=== PATIENT | male | born 1945 | race Caucasian/White ===

== ENCOUNTER 2020-10-25 15:47 | Inpatient (IN) ==
[2020-10-25] MEDS ORDERED: NITROGLYCERIN SL 0.4 MG/TAB TAB SL STA (16:06)
--- NOTE | 2020-10-25 16:11 | Emergency Department Note ---
History of Present Illness General Chief complaint: Cardiac Assessment Stated complaint: HEART PROBLEM Time Seen by Provider: 10/25/20 15:58 Source: patient History of Present Illness Provider complaint: Chest pain Onset (ago): hour(s) 2 Location: chest Radiation: non-radiation Pain Consistency: + constant Maximum Pain Intensity: 8 Quality: + other (Heaviness) Relieved By: + none Associated symptoms: + shortness of breath; no cough, no fever/chills, no malaise and no nausea/vomiting This is a 74-year-old male with a history of cardiac stent x2 presenting with chest discomfort starting 2 hours prior to arrival. He describes it as a heaviness in the center of his chest without radiation. He rates an 8 out of 10 in severity. No alleviating factors. He states it is associated with some shortness of breath. He denies diaphoresis, fever, cough or cold symptoms, abdominal pain, vomiting, diarrhea, loss of taste or smell, known exposure to COVID-19. He states he had 2 cardiac stents in [place] in April of last year. He states his symptoms feel similar to that episode. He denies any leg swelling or pain. He denies any recent travel or immobilization. Home Medications Medication Instructions Recorded Confirmed Type amlodipine 5 mg PO DAILY 10/25/20 10/25/20 History lisinopril 10 mg PO DAILY 10/25/20 10/25/20 History metoprolol tartrate 25 mg PO BID 10/25/20 10/25/20 History rosuvastatin 10 mg PO DAILY 10/25/20 10/25/20 History Allergies Allergy/AdvReac Type Severity Reaction Status Date / Time No Known Allergies Allergy Unverified 10/25/20 17:51 Past Med/Surg History Medical History CAD (coronary artery disease) Surgical History H/O heart artery stent Social History Smoking Status: Never smoker Hx Alcohol Use: Yes Alcohol type: wine Hx Substance Use: No Preferred Language: Uzbek Communication Ability: Effective Fish Bailer Required: No Beliefs That Will Affect Care: None Current Living Situation: Spouse Other Information That Helps Us Care for You: No Feels Safe at Home: Yes Safety Concerns: Feels Safe At This Time Assistive Devices: None Review of Systems See HPI for pertinent positives & negatives. and A total of 10 systems reviewed and were otherwise negative Physical Exam Vital Signs Vital Signs - 24 hr 10/25/20 15:55 10/25/20 16:05 10/25/20 16:17 Temperature 36.4 C L Temperature Source Oral Pulse Rate 91 H 90 88 Pulse Rate [Apical] Pulse Rate from SpO2 Sensor 89 87 Respiratory Rate 20 26 H 21 Respiratory Effort / Characteristics Spontaneous Respiratory Depth Normal Blood Pressure 144/83 H Blood Pressure [Right Arm] Blood Pressure Mean 108 Blood Pressure Mean [Right Arm] Pulse Oximetry 92 98 96 Oxygen Delivery Method Room Air Sepsis Recent Fever Within 48 Hours No Sepsis New/Unexplained Change in Mental Status N/A Sepsis Action Taken by Nursing No Action Required 10/25/20 16:20 10/25/20 16:21 10/25/20 16:25 Temperature Temperature Source Pulse Rate 91 H 93 H 90 Pulse Rate [Apical] 89 Pulse Rate from SpO2 Sensor 90 91 H 89 Respiratory Rate 14 28 H 16 Respiratory Effort / Characteristics Respiratory Depth Blood Pressure 129/74 106/62 Blood Pressure [Right Arm] 129/74 Blood Pressure Mean 108 74 Blood Pressure Mean [Right Arm] 92 Pulse Oximetry 96 97 96 Oxygen Delivery Method Room Air Room Air Sepsis Recent Fever Within 48 Hours Sepsis New/Unexplained Change in Mental Status Sepsis Action Taken by Nursing 10/25/20 16:30 10/25/20 16:31 10/25/20 16:32 Temperature Temperature Source Pulse Rate 82 87 86 Pulse Rate [Apical] 88 Pulse Rate from SpO2 Sensor 82 85 85 Respiratory Rate 14 15 14 Respiratory Effort / Characteristics Respiratory Depth Blood Pressure 96/58 L 88/55 L 95/55 L Blood Pressure [Right Arm] 88/55 L Blood Pressure Mean 67 61 70 Blood Pressure Mean [Right Arm] 66 Pulse Oximetry 94 94 94 Oxygen Delivery Method Room Air Sepsis Recent Fever Within 48 Hours Sepsis New/Unexplained Change in Mental Status Sepsis Action Taken by Nursing 10/25/20 16:33 10/25/20 16:35 10/25/20 16:40 Temperature Temperature Source Pulse Rate 86 93 H Pulse Rate [Apical] 86 Pulse Rate from SpO2 Sensor 86 93 H Respiratory Rate 18 16 15 Respiratory Effort / Characteristics Respiratory Depth Blood Pressure 105/60 119/65 Blood Pressure [Right Arm] 95/55 L Blood Pressure Mean 68 75 Blood Pressure Mean [Right Arm] 68 Pulse Oximetry 94 95 95 Oxygen Delivery Method Sepsis Recent Fever Within 48 Hours Sepsis New/Unexplained Change in Mental Status Sepsis Action Taken by Nursing 10/25/20 16:41 10/25/20 16:45 10/25/20 16:50 Temperature Temperature Source Pulse Rate 93 H 96 H 96 H Pulse Rate [Apical] Pulse Rate from SpO2 Sensor 94 H 97 H 95 H Respiratory Rate 14 22 17 Respiratory Effort / Characteristics Respiratory Depth Blood Pressure 118/67 127/68 Blood Pressure [Right Arm] Blood Pressure Mean 74 74 Blood Pressure Mean [Right Arm] Pulse Oximetry 95 94 94 Oxygen Delivery Method Sepsis Recent Fever Within 48 Hours Sepsis New/Unexplained Change in Mental Status Sepsis Action Taken by Nursing 10/25/20 16:51 10/25/20 16:55 10/25/20 16:56 Temperature Temperature Source Pulse Rate 96 H 94 H 96 H Pulse Rate [Apical] Pulse Rate from SpO2 Sensor 96 H 95 H 96 H Respiratory Rate 24 20 22 Respiratory Effort / Characteristics Respiratory Depth Blood Pressure 113/65 Blood Pressure [Right Arm] Blood Pressure Mean 75 Blood Pressure Mean [Right Arm] Pulse Oximetry 94 94 94 Oxygen Delivery Method Sepsis Recent Fever Within 48 Hours Sepsis New/Unexplained Change in Mental Status Sepsis Action Taken by Nursing 10/25/20 17:00 10/25/20 17:01 10/25/20 17:05 Temperature Temperature Source Pulse Rate 95 H 96 H 95 H Pulse Rate [Apical] Pulse Rate from SpO2 Sensor 96 H 89 92 H Respiratory Rate 22 26 H 14 Respiratory Effort / Characteristics Respiratory Depth Blood Pressure 122/66 126/67 Blood Pressure [Right Arm] Blood Pressure Mean 88 77 Blood Pressure Mean [Right Arm] Pulse Oximetry 95 95 92 Oxygen Delivery Method Sepsis Recent Fever Within 48 Hours Sepsis New/Unexplained Change in Mental Status Sepsis Action Taken by Nursing 10/25/20 17:10 10/25/20 17:11 10/25/20 17:15 Temperature Temperature Source Pulse Rate 97 H 96 H 99 H Pulse Rate [Apical] Pulse Rate from SpO2 Sensor 89 95 H 92 H Respiratory Rate 16 17 17 Respiratory Effort / Characteristics Respiratory Depth Blood Pressure 124/65 120/76 Blood Pressure [Right Arm] Blood Pressure Mean 74 93 Blood Pressure Mean [Right Arm] Pulse Oximetry 94 93 92 Oxygen Delivery Method Sepsis Recent Fever Within 48 Hours Sepsis New/Unexplained Change in Mental Status Sepsis Action Taken by Nursing 10/25/20 17:16 10/25/20 17:20 10/25/20 17:21 Temperature Temperature Source Pulse Rate 98 H 98 H 101 H Pulse Rate [Apical] Pulse Rate from SpO2 Sensor 97 H 96 H 90 Respiratory Rate 22 18 19 Respiratory Effort / Characteristics Respiratory Depth Blood Pressure 130/70 Blood Pressure [Right Arm] Blood Pressure Mean 77 Blood Pressure Mean [Right Arm] Pulse Oximetry 93 94 93 Oxygen Delivery Method Sepsis Recent Fever Within 48 Hours Sepsis New/Unexplained Change in Mental Status Sepsis Action Taken by Nursing 10/25/20 17:25 10/25/20 17:30 10/25/20 17:35 Temperature Temperature Source Pulse Rate 102 H 101 H 99 H Pulse Rate [Apical] Pulse Rate from SpO2 Sensor 100 H 98 H 103 H Respiratory Rate 17 21 19 Respiratory Effort / Characteristics Respiratory Depth Blood Pressure 133/78 135/77 Blood Pressure [Right Arm] Blood Pressure Mean 90 92 Blood Pressure Mean [Right Arm] Pulse Oximetry 93 94 92 Oxygen Delivery Method Sepsis Recent Fever Within 48 Hours Sepsis New/Unexplained Change in Mental Status Sepsis Action Taken by Nursing 10/25/20 17:40 10/25/20 17:41 10/25/20 17:45 Temperature Temperature Source Pulse Rate 99 H 100 H 101 H Pulse Rate [Apical] Pulse Rate from SpO2 Sensor 98 H 100 H 100 H Respiratory Rate 20 20 20 Respiratory Effort / Characteristics Respiratory Depth Blood Pressure 128/84 127/74 Blood Pressure [Right Arm] Blood Pressure Mean 95 91 Blood Pressure Mean [Right Arm] Pulse Oximetry 92 93 92 Oxygen Delivery Method Sepsis Recent Fever Within 48 Hours Sepsis New/Unexplained Change in Mental Status Sepsis Action Taken by Nursing 10/25/20 17:50 10/25/20 17:51 10/25/20 17:56 Temperature Temperature Source Pulse Rate 99 H 100 H 102 H Pulse Rate [Apical] Pulse Rate from SpO2 Sensor 100 H 100 H 103 H Respiratory Rate 29 H 23 28 H Respiratory Effort / Characteristics Respiratory Depth Blood Pressure 126/83 120/89 Blood Pressure [Right Arm] Blood Pressure Mean 97 91 Blood Pressure Mean [Right Arm] Pulse Oximetry 94 93 94 Oxygen Delivery Method Sepsis Recent Fever Within 48 Hours Sepsis New/Unexplained Change in Mental Status Sepsis Action Taken by Nursing 10/25/20 18:00 10/25/20 18:05 Temperature Temperature Source Pulse Rate 102 H 102 H Pulse Rate [Apical] Pulse Rate from SpO2 Sensor 102 H Respiratory Rate 20 22 Respiratory Effort / Characteristics Respiratory Depth Blood Pressure 126/79 134/72 Blood Pressure [Right Arm] Blood Pressure Mean 90 84 Blood Pressure Mean [Right Arm] Pulse Oximetry 94 93 Oxygen Delivery Method Sepsis Recent Fever Within 48 Hours Sepsis New/Unexplained Change in Mental Status Sepsis Action Taken by Nursing Constitutional: Vital signs reviewed. Eyes: Pupils are equal round reactive to light. Conjunctiva are noninjected. ENT: Pharynx is clear without erythema or exudate. Mucous membranes are moist. Neck supple without meningeal signs. Respiratory: Clear to auscultation bilaterally. Breath sounds are equal bilaterally. Cardiovascular: Regular rate and rhythm. No rubs or gallops. GI: Soft, nondistended and nontender. Bowel sounds are present. Musculoskeletal: No peripheral edema. No lower extremity tenderness. Integumentary: No cyanosis. or jaundice. Neurological: The patient is awake and alert. No focal deficits. Psychiatric: Anxious. Course Administered Medications Metoprolol Tartrate (Metoprolol Tartrate 25 Mg Tab) 25 mg PO BID AZUCENA Stop: 11/24/20 20:59 Last Admin: 10/25/20 22:28 Dose: 25 mg Documented by: [id number] Rosuvastatin Calcium (Rosuvastatin Calcium 10 Mg Tab) 10 mg PO HS AZUCENA Stop: 11/24/20 20:59 Last Admin: 10/25/20 22:29 Dose: 10 mg Documented by: [id number] Sucralfate (Sucralfate 1 Gm/10 Ml Udc) 1 gm PO ACHS AZUCENA Stop: 11/24/20 20:59 Last Admin: 10/25/20 22:28 Dose: 1 gm Documented by: [id number] Discontinued Medications Aspirin (Aspirin 81 Mg Ectab) 81 mg PO NOW STA Stop: 10/25/20 17:54 Last Admin: 10/25/20 18:43 Dose: 81 mg Documented by: [id number] Fentanyl Citrate (Fentanyl Citrate 100 Mcg/2 Ml Vial) 50 mcg IV NOW STA Stop: 10/25/20 16:34 Last Admin: 10/25/20 16:59 Dose: 50 mcg Documented by: [id number] Fentanyl Citrate (Fentanyl Citrate 100 Mcg/2 Ml Vial) 50 mcg IV NOW STA Stop: 10/25/20 17:35 Last Admin: 10/25/20 18:42 Dose: Not Given Documented by: [id number] Heparin Sodium/Dextrose (Heparin Iv Low Dose *No* Bolus) 1 ea IV Q30M [facility]; Protocol Stop: 11/24/20 17:55 Last Admin: 10/25/20 18:39 Dose: 1 ea Documented by: [id number] Heparin Sodium/Dextrose (Heparin 75409 Unit/500 Ml D5w) Confirm Administered Dose 25,000 units IV .STK-MED ONE Stop: 10/25/20 18:20 Last Admin: 10/25/20 18:38 Dose: 18 ml Documented by: [id number] Cosigned by: [id number] Sodium Chloride (Nss) 500 mls @ 999 mls/hr IV .Q31M ONE Stop: 10/25/20 17:03 Last Infusion: 10/25/20 17:43 Dose: 0 mls/hr Documented by: [id number] Admin: 10/25/20 16:59 Dose: 999 mls/hr Documented by: [id number] Pantoprazole Sodium 40 mg/ (Syringe) 10 mls @ 5 mls/min IV NOW ONE Stop: 10/25/20 19:16 Last Admin: 10/25/20 20:04 Dose: 5 mls/min Documented by: [id number] Ioversol (Optiray 320 125ml) 89 ml IV ONCE ONE Stop: 10/25/20 18:33 Last Admin: 10/25/20 18:33 Dose: 89 ml Documented by: [id number] Morphine Sulfate (Morphine Sulfate 2 Mg/Ml Carp) 2 mg IV NOW STA Stop: 10/25/20 17:09 Last Admin: 10/25/20 17:17 Dose: 2 mg Documented by: [id number] Morphine Sulfate (Morphine Sulfate 2 Mg/Ml Carp) 2 mg IV NOW STA Stop: 10/25/20 18:00 Last Admin: 10/25/20 18:23 Dose: 2 mg Documented by: [id number] Nitroglycerin (Nitroglycerin Sl 0.4 Mg/Tab Tab) 0.4 mg SL NOW STA Stop: 10/25/20 16:07 Last Admin: 10/25/20 16:19 Dose: 0.4 mg Documented by: [id number] Nitroglycerin (Nitroglycerin 2% Ointment 30gm Tube) 0.5 inch EXT NOW ONE Stop: 10/25/20 17:57 Last Admin: 10/25/20 18:23 Dose: Not Given Documented by: [id number] Nitroglycerin (Nitroglycerin 2% Ointment 30gm Tube) Confirm Administered Dose 18 inch .ROUTE .U[place]hot-Klo[place] ONE Stop: 10/25/20 18:15 Last Admin: 10/25/20 18:17 Dose: 0.5 inch Documented by: [id number] Ondansetron HCl (Ondansetron Inj 2 Mg/Ml 2 Ml Vial) 4 mg IV NOW STA Stop: 10/25/20 16:34 Last Admin: 10/25/20 16:59 Dose: 4 mg Documented by: [id number] Critical Care Time Critical Care Time: Yes Total Critical Care Time: 35 I have personally spent approximately 35 minutes of critical care time in the direct management of this patient. This includes bedside care, interpretation of diagnostic studies, and testing, discussion with consultants, patient, and family members, and other required patient management activities. These minutes are in excess of all separately billable procedures. Medical Decision Making Differential Diagnosis Unstable angina, OR, GERD, anxiety, pleurisy Medical Records Attestation: I reviewed the patient's medical records. I did perform a limited focused review of portions of the patient's old chart on the electronic medical record. The patient has had no prior visits to this hospital. Home Medications Current Medication List: was personally reviewed by me Laboratory Data Attestation: I reviewed the patient's lab results. Result diagrams: 10/25/20 16:11 10/25/20 16:11 Lab Results 10/25/20 10/25/20 10/25/20 Range/Units 16:11 16:11 16:11 WBC 13.91 H (4.8-10.8) K/uL RBC 4.64 L (4.7-6.1) M/uL Hgb 14.0 (14.0-18.0) g/dL Hct 40.7 L (42-52) % MCV 87.7 (80-100) fL MCH 30.2 (25-34) pg MCHC 34.4 (32-36) g/dL RDW Std Deviation 43.8 (36.4-46.3) fL RDW Coeff of Margaux 13.7 (11.5-14.5) % Plt Count 262 (130-400) K/uL MPV 9.3 (7.4-10.4) fL Immature Gran % (Auto) 0.2 % Neut % (Auto) 78.9 % Lymph % (Auto) 13.8 % [place] % (Auto) 5.9 % Eos % (Auto) 0.9 % Baso % (Auto) 0.3 % Neut # (Auto) 10.97 H (1.4-6.5) K/uL Lymph # (Auto) 1.92 (1.2-3.4) K/uL [place] # (Auto) 0.82 H (0.11-0.59) K/uL Eos # (Auto) 0.13 (0-0.5) K/uL Baso # (Auto) 0.04 (0-0.2) K/uL Immature Gran # (Auto) 0.03 H (0.00-0.02) K/uL ESR (0-14) mm/hr PT Cancelled INR Cancelled APTT Cancelled PTT Ratio Cancelled D-Dimer (0-500) ug/L FEU Sodium 138 (136-145) mmol/L Potassium 3.7 (3.5-5.1) mmol/L Chloride 102 (98-107) mmol/L Carbon Dioxide 29 (21-32) mmol/L Anion Gap 7.0 (3-11) BUN 20 H (7-18) mg/dl Creatinine 1.29 (0.6-1.4) mg/dl Est Cr Clr Drug Dosing 51.7 ml/min Est GFR ( Amer) 62.4 Est GFR (Non-Af Amer) 53.9 BUN/Creatinine Ratio 15.4 (10-20) Glucose 152 H (70-99) mg/dl Calcium 9.1 (8.5-10.1) mg/dl Total Bilirubin 0.2 (0.2-1) mg/dl AST 17 (15-37) U/L ALT 27 (12-78) U/L Alkaline Phosphatase 61 (45-117) U/L Troponin I < 0.015 (0-0.045) ng/ml C-Reactive Protein (0-0.29) mg/dl NT-Pro-B Natriuret Pep (0-900) pg/ml Total Protein 7.2 (6.4-8.2) gm/dl Albumin 3.9 (3.4-5.0) gm/dl Globulin 3.3 (2.5-4.0) gm/dl Albumin/Globulin Ratio 1.2 (0.9-2) Triglycerides (0-150) mg/dl Cholesterol (0-200) mg/dl LDL Cholesterol, Calc mg/dl VLDL Cholesterol, Calc mg/dl HDL Cholesterol mg/dl Cholesterol/HDL Ratio 10/25/20 10/25/20 10/25/20 Range/Units 17:35 17:35 17:35 WBC (4.8-10.8) K/uL RBC (4.7-6.1) M/uL Hgb (14.0-18.0) g/dL Hct (42-52) % MCV (80-100) fL MCH (25-34) pg MCHC (32-36) g/dL RDW Std Deviation (36.4-46.3) fL RDW Coeff of Margaux (11.5-14.5) % Plt Count (130-400) K/uL MPV (7.4-10.4) fL Immature Gran % (Auto) % Neut % (Auto) % Lymph % (Auto) % [place] % (Auto) % Eos % (Auto) % Baso % (Auto) % Neut # (Auto) (1.4-6.5) K/uL Lymph # (Auto) (1.2-3.4) K/uL [place] # (Auto) (0.11-0.59) K/uL Eos # (Auto) (0-0.5) K/uL Baso # (Auto) (0-0.2) K/uL Immature Gran # (Auto) (0.00-0.02) K/uL ESR (0-14) mm/hr PT 10.2 INR 1.0 APTT 23.9 PTT Ratio 0.9 D-Dimer 340 (0-500) ug/L FEU Sodium (136-145) mmol/L Potassium (3.5-5.1) mmol/L Chloride (98-107) mmol/L Carbon Dioxide (21-32) mmol/L Anion Gap (3-11) BUN (7-18) mg/dl Creatinine (0.6-1.4) mg/dl Est Cr Clr Drug Dosing ml/min Est GFR ( Amer) Est GFR (Non-Af Amer) BUN/Creatinine Ratio (10-20) Glucose (70-99) mg/dl Calcium (8.5-10.1) mg/dl Total Bilirubin (0.2-1) mg/dl AST (15-37) U/L ALT (12-78) U/L Alkaline Phosphatase (45-117) U/L Troponin I < 0.015 (0-0.045) ng/ml C-Reactive Protein < 0.29 (0-0.29) mg/dl NT-Pro-B Natriuret Pep 90 (0-900) pg/ml Total Protein (6.4-8.2) gm/dl Albumin (3.4-5.0) gm/dl Globulin (2.5-4.0) gm/dl Albumin/Globulin Ratio (0.9-2) Triglycerides 132 (0-150) mg/dl Cholesterol 127 (0-200) mg/dl LDL Cholesterol, Calc 45 mg/dl VLDL Cholesterol, Calc 26 mg/dl HDL Cholesterol 56 mg/dl Cholesterol/HDL Ratio 2 12//20 Range/Units 17:35 WBC (4.8-10.8) K/uL RBC (4.7-6.1) M/uL Hgb (14.0-18.0) g/dL Hct (42-52) % MCV (80-100) fL MCH (25-34) pg MCHC (32-36) g/dL RDW Std Deviation (36.4-46.3) fL RDW Coeff of Margaux (11.5-14.5) % Plt Count (130-400) K/uL MPV (7.4-10.4) fL Immature Gran % (Auto) % Neut % (Auto) % Lymph % (Auto) % [place] % (Auto) % Eos % (Auto) % Baso % (Auto) % Neut # (Auto) (1.4-6.5) K/uL Lymph # (Auto) (1.2-3.4) K/uL [place] # (Auto) (0.11-0.59) K/uL Eos # (Auto) (0-0.5) K/uL Baso # (Auto) (0-0.2) K/uL Immature Gran # (Auto) (0.00-0.02) K/uL ESR 16 H (0-14) mm/hr PT INR APTT PTT Ratio D-Dimer (0-500) ug/L FEU Sodium (136-145) mmol/L Potassium (3.5-5.1) mmol/L Chloride (98-107) mmol/L Carbon Dioxide (21-32) mmol/L Anion Gap (3-11) BUN (7-18) mg/dl Creatinine (0.6-1.4) mg/dl Est Cr Clr Drug Dosing ml/min Est GFR ( Amer) Est GFR (Non-Af Amer) BUN/Creatinine Ratio (10-20) Glucose (70-99) mg/dl Calcium (8.5-10.1) mg/dl Total Bilirubin (0.2-1) mg/dl AST (15-37) U/L ALT (12-78) U/L Alkaline Phosphatase (45-117) U/L Troponin I (0-0.045) ng/ml C-Reactive Protein (0-0.29) mg/dl NT-Pro-B Natriuret Pep (0-900) pg/ml Total Protein (6.4-8.2) gm/dl Albumin (3.4-5.0) gm/dl Globulin (2.5-4.0) gm/dl Albumin/Globulin Ratio (0.9-2) Triglycerides (0-150) mg/dl Cholesterol (0-200) mg/dl LDL Cholesterol, Calc mg/dl VLDL Cholesterol, Calc mg/dl HDL Cholesterol mg/dl Cholesterol/HDL Ratio Imaging Data Radiologist's Impression: XR chest 1V portable CLINICAL HISTORY: Atypical chest pain. COMPARISON STUDY: No previous studies for comparison. FINDINGS: Lung volumes are normal. Lungs are clear. There is no pneumothorax or pleural effusion. Cardiac size is normal. Mediastinal contours are normal. There is no evidence for pulmonary edema. IMPRESSION: No acute cardiopulmonary findings. ACT 112: Negative or not required by law. Electronically signed by: Zuhair Acosta M.D. 10/25/2020 4:43 PM Dictated: 10/25/20 164 Transcribed: 10/25/[address] ANGIOGRAPHY OF THE CHEST, PULMONARY EMBOLUS PROTOCOL CLINICAL HISTORY: Severe chest pain. Evaluate for pulmonary embolus. COMPARISON STUDY: Chest radiograph performed earlier today. TECHNIQUE: Following IV administration of 89 mL of Optiray-320, helical axial images of the chest were obtained utilizing the pulmonary embolus protocol. Maximal intensity projections and sagittal and coronal reformats were viewed on an independent 3D workstation. IV contrast was administered without complication. Automated exposure control was utilized for the study. A dose lowering technique was utilized adhering to the principles of ALARA. CT DOSE: 471.02 mGy.cm FINDINGS: No pulmonary emboli are identified. Note is made of mild cardiomegaly and extensive coronary artery calcification. There is a trace pericardial effusion. No enlarged thoracic lymph nodes are identified. There are calcified left hilar lymph nodes. No pneumothorax or pleural effusion is noted. Lungs are suboptimally assessed given respiratory motion. A few right lung nodules measure up to 4 mm. There are minimal tree-in-bud nodules and groundglass opacities within the right lung. No consolidation is identified. No thoracic aortic dissection is present. Ascending aorta is ectatic, measuring 4.1 cm in caliber. No acute rib or thoracic spine fracture is noted. Visualized portions of the upper abdomen demonstrate multiple gallstones within the gallbladder. Stomach is mildly distended and fluid-filled. IMPRESSION: 1. No pulmonary emboli identified. 2. Mild cardiomegaly. Trace pericardial effusion. Extensive coronary artery calcification. 3. No thoracic aortic dissection. Ectatic ascending aorta, measuring 4.1 cm 4. Minimal tree-in-bud nodules and groundglass opacities within the lungs. No consolidation. 5. Cholelithiasis. ACT 112: Negative or not required by law. Electronically signed by: Zuhair Acosta M.D. 10/25/2020 6:45 PM Dictated: 10/25/201833 Transcribed: 10/25/201833 ECG Data Attestation: I personally reviewed and interpreted this ECG as follows: Indication: + chest pain Rate (beats per minute): 84 Rhythm: + normal sinus ECG Intervals/blocks: + Normal QRS ECG ST segments: no ST elevation ECG Findings: no PVCs Additional Comments: Repeat twelve-lead EKG performed at 1656 per my interpretation demonstrates normal sinus rhythm at a rate of 95 bpm. There is no evidence of acute ST elevation or depression. No PVCs. No signs of acute ischemia. Another twelve-lead EKG interpreted by myself demonstrates sinus tachycardia at a rate of 102 bpm. There is no ST elevation or depression. PVC is now present. No acute ischemia. MDM Narrative I did evaluate the patient as noted above. He has a history of coronary artery stent presenting with chest discomfort. He describes it as heaviness. IV access was established. I did place an order for continuous cardiac monitoring. The monitor showed normal sinus rhythm at a rate of 92 bpm. I did treat the patient with sublingual nitroglycerin. He states he took aspirin prior to arrival. I did order and personally review the patient's 12-lead EKG as described above. He has no acute ischemic changes on his twelve-lead EKG. I did order and personally reviewed the images of the patient's chest x-ray as described above. I did reassess the patient after receiving 1 sublingual nitroglycerin. His blood pressure dropped to 88 systolic. He was given normal saline 500 mL IV. He states his pain went from a 10 to an 8. He was given fentanyl 50 mcg IV and Zofran 4 mg IV. I did order second twelve-lead EKG which per my interpretation above demonstrates no acute ischemia. I did order and review the patient's blood work as noted in the electronic medical record. His white blood cell count is 13.9. This is a nonspecific finding. He denies any fever or infectious symptoms. Electrolytes are unremarkable. Troponin is negative. On reassessment the patient's chest pain is now down to a 5 and he is feeling better. I did order him 2 mg of morphine IV. I did discuss the case with the hospitalist and top case assembler. On reassessment he is still having pain which she describes as "very bad ". I did write him for additional fentanyl IV. A repeat twelve-lead EKG was obtained again. Per my interpretation there is no acute ischemia. There is a PVC. The patient was seen by Dr. Cardona of the hospitalist service. He was started on a heparin drip. After discussion with the patient, I did order a CT angiogram of the chest. I did review the images myself as well as the radiology report as described above. This did not show any evidence of acute pulmonary emboli. He did have mild cardiomegaly with a trace pericardial effusion and extensive coronary artery calcification. Impression & Plan Chest pain, CAD (coronary artery disease), Pericardial effusion Discharge Plan Visit Data Chief Complaint: Cardiac Assessment Stated Complaint: HEART PROBLEM ED Provider: Kenn Matamoros Discharge Problem: Chest pain, CAD (coronary artery disease), Pericardial effusion Patient Disposition: Admitted As Inpatient Discharge Instructions Interventions: ED Discharge Assessment Last Done: 10/25/20 21:06 Discharge Problem: Chest pain Qualifiers: Chest pain type: unspecified Qualified Code(s): R07.9 - Chest pain, unspecified CAD (coronary artery disease) Qualifiers: Coronary Disease-Associated Artery/Lesion type: unspecified vessel or lesion type [place] vs. transplanted heart: [place] heart Associated angina: with unstable angina Qualified Code(s): I25.110 - Atherosclerotic heart disease of [place] coronary artery with unstable angina pectoris
[2020-10-25 16:21] LABS: Basophils # (auto) 0.04 K/uL (0-0.2); Basophils % (auto) 0.3 %; Eosinophils # (auto) 0.13 K/uL (0-0.5); Eosinophils % (auto) 0.9 %; Hematocrit (blood only) 40.7 % (42-52); Immature Granulocytes # (auto) 0.03 K/uL (0.00-0.02); Immature Granulocytes % (auto) 0.2 %; Lymphocytes # (auto) 1.92 K/uL (1.2-3.4); Lymphocytes % (auto) 13.8 %; Mean Corpuscular Hemoglobin 30.2 pg (25-34); Mean Corpuscular Hgb Conc 34.4 g/dL (32-36); Mean Corpuscular Volume 87.7 fL (80-100); Mean Platelet Volume 9.3 fL (7.4-10.4); Monocytes # (auto) 0.82 K/uL (0.11-0.59); Monocytes % (auto) 5.9 %; Neutrophils # (auto) 10.97 K/uL (1.4-6.5); Neutrophils % (auto) 78.9 %; Platelet Count 262 K/uL (130-400); RDW Coefficient of Variation 13.7 % (11.5-14.5); RDW Standard Deviation 43.8 fL (36.4-46.3); Red Blood Count 4.64 M/uL (4.7-6.1); White Blood Count 13.91 K/uL (4.8-10.8)
[2020-10-25] MEDS ORDERED: fentaNYL citrate 100 MCG/2 ML VIAL IV STA ×2 (16:33→17:34)
[2020-10-25] MEDS ORDERED: SODIUM CHLORIDE 0.9% 500 ML IV ONE (16:33)
[2020-10-25] MEDS ORDERED: ONDANSETRON INJ 2 MG/ML 2 ML VIAL IV STA (16:33)
--- NOTE | 2020-10-25 16:44 | XRay Report ---
XR chest 1V portable CLINICAL HISTORY: Atypical chest pain. COMPARISON STUDY: No previous studies for comparison. FINDINGS: Lung volumes are normal. Lungs are clear. There is no pneumothorax or pleural effusion. Car diac size is normal. Mediastinal contours are normal. There is no evidence for pulmonary edema. IMPRESSION: No acute cardiopulmonary findings. ACT 112: Negative or not required by law. Electronically signed by: Zuhair Acosta M.D. 10/25/2020 4:43 PM
[2020-10-25 16:45] LABS: Alanine Aminotransferase 27 U/L (12-78); Albumin Level 3.9 gm/dl (3.4-5.0); Aspartate Aminotransferase 17 U/L (15-37); BUN Creatinine Ratio 15.4 (10-20); Blood Urea Nitrogen 20 mg/dl (7-18); Calcium 9.1 mg/dl (8.5-10.1); Carbon Dioxide 29 mmol/L (21-32); Chloride 102 mmol/L (98-107); Creatinine Clr Calc Pharmacy 51.7 ml/min; Est GFR (African American) 62.4; Est GFR (Non-African American) 53.9; Glucose 152 mg/dl (70-99); Potassium 3.7 mmol/L (3.5-5.1); Sodium 138 mmol/L (136-145)
[2020-10-25 16:50] LABS: Albumin Globulin Ratio 1.2 (0.9-2); Alkaline Phosphatase 61 U/L (45-117); Bilirubin,Total 0.2 mg/dl (0.2-1); Globulin 3.3 gm/dl (2.5-4.0); Total Protein 7.2 gm/dl (6.4-8.2); Troponin I < 0.015 ng/ml (0-0.045)
[2020-10-25] MEDS ORDERED: MoRPHine SULFATE 2 MG/ML CARP IV STA ×2 (17:08→17:59)
--- NOTE | 2020-10-25 17:38 | History & Physical Report ---
Date of Service October 25, 2020 Assessment & Plan (1) Chest pain: History of Coronary artery disease with stents x 2 -This is a 77 year old Male who reports 1 year ago he had coronary artery stent which was performed in [facility] and presents to the ED with chest that started ar ound 2 hours before arrival. Patient reports that in the recent past he has been following at the [facility] and is on metoprolol 25 mg BID, lisinopril 10 mg daily, amlodipine 5 mg daily, rosuvastatin 10 mg qhs, aspirin 81 mg qhs and reported that he had taken his morning dosings of home medications. He reports the chest pain started after normal daily activities and after the lunch time. Patient saturating well on room air. He denies other symptoms on review of systems. Allergy history: patient denies any drug or medication allergies. Family History: brother with diabetes - patient denies personal history of diabetes -Patient's initial troponin is negative and presentation EKGs in normal sinus rhythm. Despite ED physician Dr. Mcfarlane giving nitro sublingual and morphine and Fentanyl x 1, patient continued to report chest discomfort when seen by admitting hospitalist in the ED. Dr. Mcfarlane ordering additional imaging of CTA scan to rule out pulmonary embolism. As hospitalist, will start patient on additional morphine and nitropaste q6 hours with IV heparin drip and aspirin. The subsequent EKG with some PVCs but not showing ischemia -keep NPO except sips and chips for now while continuing patient's home medications for now. trend troponins while on IV heparin drip. monitor on telemetry. echocardiogram. cardiology consult. check lipid panel and HbA1c Leukocytosis on admission -No acute cardiopulmonary findings to suggest pneumonia or pulmonary edema -follow blood cultures -COVID-19 screening test is negative -send urine analysis Code Status: Full Code emergency contact is History of Present Illness -This is a 77 year old Male who reports 1 year ago he had coronary artery stent which was performed in [facility] and presents to the ED with chest that started around 2 hours before arrival. Patient reports that in the recent past he has been following at the [facility] and is on metoprolol 25 mg BID, lisinopril 10 mg daily, amlodipine 5 mg daily, rosuvastatin 10 mg qhs, aspirin 81 mg qhs and reported that he had taken his morning dosings of home medications. He reports the chest pain started after normal daily activities and after the lunch time. Patient saturating well on room air.He denies other symptoms on review of systems. Allergy history: patient denies any drug or medication allergies. Family History: brother with diabetes - patient denies personal history of diabetes Patient's initial troponin is negative and presentation EKGs in normal sinus rhythm. Despite ED physician Dr. Mcfarlane giving nitro sublingual and morphine and Fentanyl x 1, patient continued to report chest discomfort when seen by admitting hospitalist in the ED. Dr. Mcfarlane ordering additional imaging of CTA scan to rule out pulmonary embolism. As hospitalist, will start patient on additional morphine and nitropaste with IV heparin drip and aspirin -keep NPO except sips and chips for now while continuing patient's home medications for now Primary Care Provider: [facility] Allergies Allergy/AdvReac Type Severity Reaction Status Date / Time No Known Allergies Allergy Unverified 10/25/20 17:51 Home Medications Medication Instructions Recorded Confirmed Type amlodipine 5 mg PO DAILY 10/25/20 10/25/20 History lisinopril 10 mg PO DAILY 10/25/20 10/25/20 History metoprolol tartrate 25 mg PO BID 10/25/20 10/25/20 History rosuvastatin 10 mg PO DAILY 10/25/20 10/25/20 History Past Med/Surg History Medical History CAD (coronary artery disease) Surgical History H/O heart artery stent Social History Smoking Status: Never smoker Preferred Language: [place] Feels Safe at Home: Yes Review of Systems Review of Systems: All systems reviewed & are unremarkable except as noted in Subjective Cardiovascular: + chest pain Physical Exam Constitutional: cooperative Eyes: PERRL, conjunctivae normal, anicteric sclerae EOM intact bilaterally ENMT: external ear and nose normal, oropharynx normal Neck: normal visual inspection Respiratory: normal respiratory effort, lungs clear to auscultation Cardiovascular: Rate/Rhythm: regular rate and regular rhythm Gastrointestinal (Abdomen): normal bowel sounds, soft, nontender, no hepatosplenomegaly Musculoskeletal: Head/Neck/Chest: normocephalic and head atraumatic Neurologic: PERRL, EOMI, accommodation nl, no face palsy, no dysarthria CN's II-XI intact bilaterally Psychiatric: A+Ox3, euthymic affect Results & Data Results & Data ([facility]) Vital Signs (Past 12 Hours) Vital Signs Temp Pulse Pulse Resp BP BP Pulse Ox 10/25/20 17:15 99 H 17 120/76 92 10/25/20 17:11 96 H 17 93 10/25/20 17:10 97 H 16 124/65 94 10/25/20 17:05 95 H 14 126/67 92 10/25/20 17:01 96 H 26 H 95 10/25/20 17:00 95 H 22 122/66 95 10/25/20 16:56 96 H 22 94 10/25/20 16:55 94 H 20 113/65 94 10/25/20 16:51 96 H 24 94 10/25/20 16:50 96 H 17 127/68 94 10/25/20 16:45 96 H 22 118/67 94 10/25/20 16:41 93 H 14 95 10/25/20 16:40 93 H 15 119/65 95 10/25/20 16:35 86 16 105/60 95 10/25/20 16:33 86 18 95/55 L 94 10/25/20 16:32 86 14 95/55 L 94 10/25/20 16:31 87 15 88/55 L 94 10/25/20 16:30 82 88 14 96/58 L 88/55 L 94 10/25/20 16:25 90 16 106/62 96 10/25/20 16:21 93 H 28 H 97 10/25/20 16:20 91 H 89 14 129/74 129/74 96 10/25/20 16:17 88 21 96 10/25/20 16:05 90 26 H 144/83 H 98 10/25/20 15:55 36.4 C L 91 H 20 92 (1) Chest pain Chest pain type: unspecified Qualified Code(s): R07.9 - Chest pain, unspecified
[2020-10-25] MEDS ORDERED: ASPIRIN 81 MG ECTAB PO STA (17:53)
[2020-10-25] MEDS ORDERED: NITROGLYCERIN 2% OINTMENT 30GM TUBE EXT ONE (17:56)
[2020-10-25] MEDS ORDERED: HEPARIN SODIUM/DEXTROSE 25,000 UNITS/500 ML BAG IV SCH (18:00)
[2020-10-25 18:01] LABS: Partial Thromboplastin Ratio 0.9; Partial Thromboplastin Time 23.9 Seconds (21.0-31.0); Prothrombin Time 10.2 Seconds (9.0-12.0)
[2020-10-25] MEDS ORDERED: NITROGLYCERIN 2% OINTMENT 30GM TUBE ONE (18:14)
[2020-10-25] MEDS ORDERED: HEPARIN 25000 UNIT/500 ML D5W IV ONE (18:19)
[2020-10-25 18:28] LABS: D Dimer 340 ug/L FEU (0-500)
[2020-10-25] MEDS ORDERED: OPTIRAY 320 125ml IV ONE (18:32)
[2020-10-25] MEDS: Heparin IV Low Dose *NO* Bolus IV SCH (18:39)
[2020-10-25 18:46] LABS: C Reactive Protein < 0.29 mg/dl (0-0.29); Chol HDL Ratio 2; Cholesterol 127 mg/dl (0-200); HDL Cholesterol 56 mg/dl; LDL Cholesterol Calculated 45 mg/dl; NT Pro B Type Natriuretic Pept 90 pg/ml (0-900); Triglycerides 132 mg/dl (0-150); Troponin I < 0.015 ng/ml (0-0.045); VLDL Cholesterol 26 mg/dl
--- NOTE | 2020-10-25 18:46 | CT Scan Report ---
CT ANGIOGRAPHY OF THE CHEST, PULMONARY EMBOLUS PROTOCOL CLINICAL HISTORY: Severe chest pain. Evaluate for pulmonary embolus. COMPARISON STUDY: Chest radiograph performed earlier today. TECHNIQUE: Following IV administration of 89 mL of [id number]-320, helical axial images of the chest wer e obtained utilizing the pulmonary embolus protocol. Maximal intensity projections and sagittal and coronal reformats were viewed on an independent 3D workstation. IV contrast was administered without complication. Automated exposure control was utilized for the study. A dose lowering technique was utilized adhering to the principles of ALARA. CT DOSE: 471.02 mGy.cm FINDINGS: No pulmonary emboli are identified. Note is made of mild cardiomegaly and extensive hayward ry artery calcification. There is a trace pericardial effusion. No enlarged thoracic lymph nodes are identified. There are calcified left hilar lymph nodes. No pneumothorax or pleural effusion is noted. Lungs are suboptimally assessed given respiratory motion. A few right lung nodules measure up to 4 m m. There are minimal tree-in-bud nodules and groundglass opacities within the right lung. No consolid ation is identified. No thoracic aortic dissection is present. Ascending aorta is ectatic, measuring 4.1 cm in caliber. No acute rib or thoracic spine fracture is noted. Visualized portions of the upper abdomen demonstrate multiple gallstones within the gallbladder. Stomach is mildly distended and flui d-filled. IMPRESSION: 1. No pulmonary emboli identified. 2. Mild cardiomegaly. Trace pericardial effusion. Extensive coronary artery calcification. 3. No thoracic aortic dissection. Ectatic ascending aorta, measuring 4.1 cm 4. Minimal tree-in-bud nodules and groundglass opacities within the lungs. No consolidation. 5. Cholelithiasis. ACT 112: Negative or not required by law. Electronically signed by: Zuhair Acosta M.D. 10/25/2020 6:45 PM
[2020-10-25 18:57] LABS: Appearance Urine Clear (Clear); Bacteria Urine Automated Negative (Negative); Bilirubin Urine Negative (Negative); Blood Urine Negative (Negative); Color Urine Yellow; Glucose Urine UA Negative (Negative); Ketones Urine Negative (Negative); Leukocyte Esterase Urine Negative (Negative); Nitrite Urine Negative (Negative); RBC Urine Automated 0-4 /hpf (0-4); Specific Gravity Urine 1.016 (1.000-1.030); Urobilinogen Urine Negative (Negative)
[2020-10-25] MEDS ORDERED: PANTOprazole 40 MG in SYRINGE 0 ML IV ONE (19:15)
[2020-10-25 19:17] LABS: Protein Urine Negative (Negative); Sulfosalicylic Acid Urine Negative (Negative)
[2020-10-25 19:44] LABS: Amylase 76 U/L (25-115); Lipase 131 U/L (73-393)
[2020-10-25] MEDS ORDERED: ROSUVASTATIN CALCIUM 10 MG TAB PO SCH (21:00)
[2020-10-25] MEDS: METOPROLOL TARTRATE 25 MG TAB PO SCH (22:28)
[2020-10-25] MEDS: SUCRALFATE 1 GM/10 ML UDC PO SCH (22:28)
[2020-10-26] MEDS: NITROGLYCERIN 2% OINTMENT 30GM TUBE EXT SCH ×3 (00:38→14:19)
[2020-10-26] MEDS: Heparin IV Low Dose *NO* Bolus IV SCH ×3 (00:40→00:42)
[2020-10-26 00:55] LABS: Basophils # (auto) 0.02 K/uL (0-0.2); Basophils % (auto) 0.1 %; Hematocrit (blood only) 36.9 % (42-52); Hemoglobin 12.8 g/dL (14.0-18.0); Immature Granulocytes # (auto) 0.04 K/uL (0.00-0.02); Immature Granulocytes % (auto) 0.2 %; Lymphocytes # (auto) 0.85 K/uL (1.2-3.4); Mean Corpuscular Hemoglobin 30.2 pg (25-34); Mean Corpuscular Hgb Conc 34.7 g/dL (32-36); Mean Platelet Volume 9.1 fL (7.4-10.4); Monocytes # (auto) 1.35 K/uL (0.11-0.59); Monocytes % (auto) 7.9 %; Neutrophils # (auto) 14.73 K/uL (1.4-6.5); Neutrophils % (auto) 86.8 %; Platelet Count 220 K/uL (130-400); RDW Coefficient of Variation 13.9 % (11.5-14.5); Red Blood Count 4.24 M/uL (4.7-6.1); White Blood Count 16.99 K/uL (4.8-10.8)
[2020-10-26 01:05] LABS: Partial Thromboplastin Ratio 1.3
[2020-10-26 01:21] LABS: Alanine Aminotransferase 22 U/L (12-78); Albumin Level 3.2 gm/dl (3.4-5.0); Alkaline Phosphatase 46 U/L (45-117); Aspartate Aminotransferase 10 U/L (15-37); BUN Creatinine Ratio 15.3 (10-20); Bilirubin,Total 0.4 mg/dl (0.2-1); Blood Urea Nitrogen 16 mg/dl (7-18); Calcium 8.2 mg/dl (8.5-10.1); Carbon Dioxide 27 mmol/L (21-32); Chloride 105 mmol/L (98-107); Creatinine Clr Calc Pharmacy 64.1 ml/min; Est GFR (African American) 82.9; Est GFR (Non-African American) 71.6; Globulin 3.3 gm/dl (2.5-4.0); Glucose 168 mg/dl (70-99); Potassium 4.5 mmol/L (3.5-5.1); Sodium 137 mmol/L (136-145); Total Protein 6.5 gm/dl (6.4-8.2); Troponin I < 0.015 ng/ml (0-0.045)
[2020-10-26] MEDS ORDERED: HEPARIN IV BOLUS 3,000 UNITS in SYRINGE 0 ML IV ONE (01:50)
[2020-10-26] MEDS ORDERED: lisinopril 10 MG TAB PO SCH (09:00)
[2020-10-26] MEDS ORDERED: amLODIPine BESYLATE 5 MG TAB PO SCH (09:00)
[2020-10-26] MEDS ORDERED: PANTOprazole 40 MG in SYRINGE 0 ML IV SCH (09:00)
--- NOTE | 2020-10-26 09:01 | Hospitalist Progress Note ---
Date of Service October 26, 2020 Assessment & Plan (1) Chest pain: History of Coronary artery disease with stents x 2 -This is a 77 year old Male who reports 1 year ago he had coronary artery stent which was performed in [facility] and presents to the ED with chest that started ar ound 2 hours before arrival. Patient reports that in the recent past he has been following at the [facility] and is on metoprolol 25 mg BID, lisinopril 10 mg daily, amlodipine 5 mg daily, rosuvastatin 10 mg qhs, aspirin 81 mg qhs and reported that he had taken his morning dosings of home medications. He reports the chest pain started after normal daily activities and after the lunch time. Patient saturating well on room air. He denies other symptoms on review of systems. Allergy history: patient denies any drug or medication allergies. Family History: brother with diabetes - patient denies personal history of diabetes . Patient's initial troponin is negative and presentation EKGs in normal sinus rhythm. Despite ED physician Dr. Mcfarlane giving nitro sublingual and morphine and Fentanyl, patient continued to report chest discomfort when seen by admitting hospitalist in the ED. Patient was started on IV heparin and nitropaste q6 hours. His CTA scan was generally unremarkable: No pulmonary emboli identified. Mild cardiomegaly. Trace pericardial effusion. Extensive coronary artery calcification. No thoracic aortic dissection. Ectatic ascending aorta, measuring 4.1 cm. Minimal tree-in-bud nodules and groundglass opacities within the lungs. No consolidation. Cholelithiasis. Since on admission day, there did not seem to be strong evidence to account for persistent chest discomfort, patient was started on pantoprazole IV BID and carafate in case this is a pain from a gastrointestinal source -as of 10/26/2020 AM so far there a total of 3 negative troponins and telemetry is unremarkable other than some PVCs. follow the echocardiogram performed on 10/26/2020 and defer to cardiology consult when IV heparin can be discontinued and whether patient needs additional cardiac testing Leukocytosis on admission -admission WBC 13.9 K and afebrile on admission with repeat lab rising to 16.9 K -No acute cardiopulmonary findings to suggest pneumonia or pulmonary edema -follow admission blood cultures -COVID-19 screening test is negative -urine analysis is normal -will do swabto rule out influenza GERD (Gastroesophageal reflux disease) Cholelithiasis -on 10/26/2020, patient not in distress as he appeared to be when initially seen in the ED. He reports that he still has chest pain which is ameliorated as 3 of 10. He wonders whether he has symptoms for gastric reflux. He denies being on GERD medications for a long time. He was on admission empirically started on pantoprazole IV BID and carafate -also discussed with patient of admission CT showing Cholelithiasis but patient denies any acute abdominal pain and he has normal amylase and lipase enzymes on admission Code Status: Full Code emergency contact is Admission and Anticipated Discharge Date Admission Date: October 25, 2020 Subjective -on 10/26/2020, patient not in distress as he appeared to be when initially seen in the ED. He reports that he still has chest pain which is ameliorated as 3 of 10. He wonders whether he has symptoms for gastric reflux. He denies being on GERD medications for a long time. He was on admission empirically started on pantoprazole IV BID and carafate. -also discussed with patient of admission CT showing Cholelithiasis but patient denies any acute abdominal pain. as of 10/26/2020 AM so far there a total of 3 negative troponins and telemetry is unremarkable other than some PVCs. follow the echocardiogram performed on 10/26/2020 and defer to cardiology consult for further recommendations Patient denies other symptoms on review of systems Review of Systems Review of Systems: All systems reviewed & are unremarkable except as noted in Subjective Cardiovascular: + chest pain Physical Exam Constitutional: cooperative Eyes: PERRL, conjunctivae normal, anicteric sclerae EOM intact bilaterally ENMT: external ear and nose normal, oropharynx normal Neck: normal visual inspection Respiratory: normal respiratory effort, lungs clear to auscultation Cardiovascular: Rate/Rhythm: regular rate and regular rhythm Gastrointestinal (Abdomen): normal bowel sounds, soft, nontender, no hepatosplenomegaly Musculoskeletal: Head/Neck/Chest: normocephalic and head atraumatic Neurologic: PERRL, EOMI, accommodation nl, no face palsy, no dysarthria CN's II-XI intact bilaterally Psychiatric: A+Ox3, euthymic affect Results & Data Results & Data ([facility]) Vital Signs (Past 12 Hours) Vital Signs Temp Pulse Pulse Pulse Resp BP BP 10/26/20 08:03 37.1 C 90 18 109/64 10/26/20 06:00 37.5 C 10/26/20 04:20 38.0 C H 86 16 96/53 L 10/25/20 23:50 37.8 C H 104 H 18 107/65 10/25/20 21:25 37.5 C 100 H 18 116/67 10/25/20 21:00 100 H 21 117/70 Pulse Ox 10/26/20 08:03 95 10/26/20 06:00 10/26/20 04:20 93 10/25/20 23:50 93 10/25/20 21:25 92 10/25/20 21:00 93 (1) Chest pain Chest pain type: unspecified Qualified Code(s): R07.9 - Chest pain, unspecified
[2020-10-26 09:12] LABS: Basophils # (auto) 0.02 K/uL (0-0.2); Basophils % (auto) 0.2 %; Eosinophils # (auto) 0.01 K/uL (0-0.5); Eosinophils % (auto) 0.1 %; Hematocrit (blood only) 37.6 % (42-52); Hemoglobin 12.6 g/dL (14.0-18.0); Immature Granulocytes # (auto) 0.03 K/uL (0.00-0.02); Immature Granulocytes % (auto) 0.2 %; Lymphocytes # (auto) 1.42 K/uL (1.2-3.4); Lymphocytes % (auto) 10.9 %; Mean Corpuscular Hemoglobin 29.6 pg (25-34); Mean Corpuscular Hgb Conc 33.5 g/dL (32-36); Mean Corpuscular Volume 88.5 fL (80-100); Mean Platelet Volume 8.9 fL (7.4-10.4); Monocytes # (auto) 1.43 K/uL (0.11-0.59); Neutrophils # (auto) 10.11 K/uL (1.4-6.5); Neutrophils % (auto) 77.6 %; Platelet Count 192 K/uL (130-400); RDW Coefficient of Variation 14.2 % (11.5-14.5); RDW Standard Deviation 45.9 fL (36.4-46.3); Red Blood Count 4.25 M/uL (4.7-6.1); White Blood Count 13.02 K/uL (4.8-10.8)
[2020-10-26] MEDS: SUCRALFATE 1 GM/10 ML UDC PO SCH ×2 (09:12→12:30)
[2020-10-26 09:34] LABS: Partial Thromboplastin Ratio 2.3
[2020-10-26 09:36] LABS: Partial Thromboplastin Time 64.9 Seconds (21.0-31.0)
[2020-10-26] MEDS ORDERED: COLCHICINE 0.6 MG TAB PO SCH (09:45)
[2020-10-26 10:05] LABS: Troponin I < 0.015 ng/ml (0-0.045)
[2020-10-26 10:12] LABS: Influenza A virus by PCR Negative (Negative); Influenza B virus by PCR Negative (Negative)
[2020-10-26] MEDS ORDERED: KETOROLAC TROMETHAMINE 15 MG/ML VIAL IV ONE (10:15)
[2020-10-26] MEDS: METOPROLOL TARTRATE 25 MG TAB PO SCH (10:41)
--- NOTE | 2020-10-26 10:57 | Cardiology Consultation ---
Date of Consultation October 26, 2020 Assessment & Plan (1) Pericarditis: (2) Pericardial effusion: (3) Right carotid bruit: (4) CAD (coronary artery disease): I had a long discussion with the patient regarding the natural history and pathophysiology of acute pericarditis. Results of echocardiogram discussed. Recommend discontinuation of IV heparin. Patient will begin treatment with NSAIDs and colchicine. 30 mg intravenous Toradol ordered x1 now. He will then begin ibuprofen 600 mg 3 times daily for 3 days. Taper NSAIDs over a 7 to 10- day period pending on clinical response. Continue colchicine 0.6 mg twice daily for 2 to 4 weeks. Outpatient bilateral carotid duplex recommended for further evaluation of carotid bruit. Follow-up with [facility] within one week and cardiology in 1-2 weeks. History of Present Illness Reason for Consultation: chest pain Requesting Physician: Dr. Cardona Attending Physician: Jim Cardona MD History of Present Illness 74-year-old patient presented to the emergency department with chest pain. Patient developed a severe 10/10 chest discomfort yesterday in the early afternoon. Symptoms occurred after eating lunch. Pain worse with deep inspiration and lying supine. Discomfort improved with sitting upright and leaning forward. Denies any recent fever, chills, or sick contacts. No cough, rhinorrhea, headache, or dysuria. Patient treated with IV heparin overnight. Serial troponins are undetectable. Preliminary review of bedside 2D transthoracic echocardiogram demonstrates preserved LV systolic function. There is a small circumferential pericardial effusion without evidence of tamponade physiology. Patient feeling better today. Chest discomfort is down to 2/10. CRP undetectable on admission, currently elevated. Elevated white blood cell count noted. Review of serial ECGs demonstrates CT depression initially with diffuse ST elevation on ECG performed this morning. Patient currently appears comfortable. Requesting a.m. meal if possible. Denies prior history of GI bleeding or peptic ulcer disease. Cardiac history significant for stenting of undisclosed vessel approximately 1 year ago in [place]. Typically follows with [facility] for his medical care. Allergies Allergy/AdvReac Type Severity Reaction Status Date / Time No Known Allergies Allergy Unverified 10/25/20 17:51 Home Medications Medication Instructions Recorded Confirmed Type amlodipine 5 mg PO DAILY 10/25/20 10/25/20 History lisinopril 10 mg PO DAILY 10/25/20 10/25/20 History metoprolol tartrate 25 mg PO BID 10/25/20 10/25/20 History rosuvastatin 10 mg PO DAILY 10/25/20 10/25/20 History Patient History Medical History (Updated 10/26/20 @ 11:12 by Kenn Ledesma DO) CAD (coronary artery disease) Dyslipidemia, goal LDL below 70 Surgical History (Updated 10/26/20 @ 10:54 by Kenn Ledesma DO) H/O heart artery stent S/P coronary artery stent placement Social History Smoking Status: Never smoker Hx Alcohol Use: Yes Alcohol type: wine Hx Substance Use: No Preferred Language: Ukrainian Communication Ability: Effective Crime Scene Investigator Required: No Beliefs That Will Affect Care: None Current Living Situation: Spouse Other Information That Helps Us Care for You: No Feels Safe at Home: Yes Safety Concerns: Feels Safe At This Time Assistive Devices: None Review of Systems Review of Systems: All systems reviewed & are unremarkable except as noted in HPI & below Physical Exam Constitutional: well developed and well nourished; no acute distress and not ill appearing Respiratory: normal respiratory effort; no respiratory distress, no labored breathing and no retractions Auscultation: no crackles, no rales, no rhonchi and no wheezes Cardiovascular: Rate/Rhythm: regular rate and regular rhythm Heart Sounds: normal S1, normal S2 and + murmur (1-2/6 midsystolic murmur heard best at left sternal border) Palpation: normal PMI Vessels: + carotid bruit (+right sided bruit); no JVD Extremities: no edema Gastrointestinal (Abdomen): Inspection/Auscultation: abdomen normal to inspection and normal bowel sounds; abdomen not distended Percussion/Palpation: abdomen soft; abdomen nontender, no guarding and abdomen not rigid Skin: no rashes, warm and dry Neurologic: CN's II-XI intact bilaterally and moves all extremities; no focal motor deficits Motor/Sensory: no tremor Psychiatric: A+Ox3, euthymic affect Results & Data ([facility]) Vital Signs (Past 12 Hours) Vital Signs Temp Pulse Resp BP Pulse Ox 10/26/20 08:03 37.1 C 90 18 109/64 95 10/26/20 06:00 37.5 C 10/26/20 04:20 38.0 C H 86 16 96/53 L 93 10/25/20 23:50 37.8 C H 104 H 18 107/65 93 (1) CAD (coronary artery disease) Associated angina: with unstable angina Coronary Disease-Associated Artery/Lesion type: unspecified vessel or lesion type [place] vs. transplanted heart: [place] heart Qualified Code(s): I25.110 - Atherosclerotic heart disease of [place] coronary artery with unstable angina pectoris (2) Pericarditis Chronicity: acute Pericarditis type: idiopathic Qualified Code(s): I30.0 - Acute nonspecific idiopathic pericarditis
--- NOTE | 2020-10-26 12:53 | Electrocardiogram Report ---
Test Reason : Blood Pressure : / mmHG Vent. Rate : 095 BPM Atrial Rate : 095 BPM P-R Int : 158 ms QRS Dur : 070 ms QT Int : 340 ms P-R-T Axes : 061 014 059 degrees QTc Int : 427 ms Normal sinus rhythm ST elevation, consider early repolarization, pericarditis, or injury Abnormal ECG When compared with ECG of 25-OCT-2020 16:02, (unconfirmed) No significant change was found Confirmed by Usama Crockett ([id number]) on 10/26/2020 12:53:16 PM Referred By: REFERRED SELF Confirmed By:Usama Crockett
--- NOTE | 2020-10-26 12:54 | Electrocardiogram Report ---
Test Reason : Blood Pressure : / mmHG Vent. Rate : 084 BPM Atrial Rate : 084 BPM P-R Int : 160 ms QRS Dur : 072 ms QT Int : 366 ms P-R-T Axes : 069 013 058 degrees QTc Int : 432 ms Normal sinus rhythm Early repolarization Otherwise Normal ECG No previous ECGs available Confirmed by Usama Crockett ([id number]) on 10/26/2020 12:53:42 PM Referred By: REFERRED SELF Confirmed By:Usama Crockett
--- NOTE | 2020-10-26 12:54 | Electrocardiogram Report ---
Test Reason : Blood Pressure : / mmHG Vent. Rate : 102 BPM Atrial Rate : 102 BPM P-R Int : 156 ms QRS Dur : 070 ms QT Int : 328 ms P-R-T Axes : 061 015 054 degrees QTc Int : 427 ms Sinus tachycardia with occasional Premature ventricular complexes ST elevation, consider early repolarization, pericarditis, or injury Abnormal ECG When compared with ECG of 25-OCT-2020 16:56, (unconfirmed) Premature ventricular complexes are now Present Confirmed by Usama Crockett ([id number]) on 10/26/2020 12:54:43 PM Referred By: REFERRED SELF Confirmed By:Usama Crockett
--- NOTE | 2020-10-26 13:03 | Electrocardiogram Report ---
Test Reason : Blood Pressure : / mmHG Vent. Rate : 088 BPM Atrial Rate : 088 BPM P-R Int : 164 ms QRS Dur : 072 ms QT Int : 356 ms P-R-T Axes : 054 017 037 degrees QTc Int : 430 ms Normal sinus rhythm ST elevation, consider early repolarization, pericarditis, or injury Abnormal ECG When compared with ECG of 25-OCT-2020 18:17, (unconfirmed) Premature ventricular complexes are no longer Present T wave amplitude has increased in Anterior leads Confirmed by Usama Crockett ([id number]) on 10/26/2020 1:03:10 PM Referred By: REFERRED SELF Confirmed By:Usama Crockett
--- NOTE | 2020-10-26 15:06 | Ultrasound Report ---
ULTRASOUND OF THE CAROTID ARTERIES CLINICAL HISTORY: carotid bruit as per cardiology COMPARISON STUDY: None. TECHNIQUE: Real-time, grayscale, and color Doppler sonography of the carotid arteries was performed. Imaging reviewed in the transverse and longitudinal planes. NASCET criteria was utilized for stenosis calcification. FINDINGS: There is mild to moderate atherosclerotic plaque present left greater than right.. The peak systolic velocity within the right internal carotid artery is 82 cm/sec. The systolic velocity ratio of right internal to common carotid artery is 1.5. The peak systolic velocity within the left internal carotid artery is 116 cm/sec. The systolic velocity ratio left internal to common carotid artery is 1.9. Antegrade flow is seen in the vertebral arteries. The external carotid arteries are patent. Blood pressure in the right arm measured 116 mm/Hg. Blood pressure in the left arm measured 117 mm/H g. IMPRESSION: No evidence of hemodynamically significant carotid stenosis. ACT 112: Negative or not required by law. Electronically signed by: Kendrick Tan M.D. 10/26/2020 3:05 PM
--- NOTE | 2020-10-26 15:26 | Discharge Summary ---
Date of Service October 26, 2020 Admission HPI Per Admitting Provider This is a 77 year old Male who reports 1 year ago he had coronary artery stent which was performed in [facility] and presents to the ED with chest that started around 2 hours before arrival. Patient reports that in the recent past he has been following at the [facility] and is on metoprolol 25 mg BID, lisinopril 10 mg daily, amlodipine 5 mg daily, rosuvastatin 10 mg qhs, aspirin 81 mg qhs and reported that he had taken his morning dosings of home medications. He reports the chest pain started after normal daily activities and after the lunch time. Patient saturating well on room air.He denies other symptoms on review of systems. Allergy history: patient denies any drug or medication allergies. Family History: brother with diabetes - patient denies personal history of diabetes Patient's initial troponin is negative and presentation EKGs in normal sinus rhythm. Despite ED physician Dr. Mcfarlane giving nitro sublingual and morphine and Fentanyl x 1, patient continued to report chest discomfort when seen by admitting hospitalist in the ED. Dr. Mcfarlane ordering additional imaging of CTA scan to rule out pulmonary embolism. As hospitalist, will start patient on additional morphine and nitropaste with IV heparin drip and aspirin Principal Diagnosis History of Coronary artery disease with stents x 2 Chest Pain due to Pericarditis with Pericardial Effusion Leukocytosis from Pericarditis GERD (Gastroesophageal reflux disease) Cholelithiasis Discharge Exam Constitutional cooperative Eyes PERRL, conjunctivae normal, anicteric sclerae EOM intact bilaterally ENMT external ear and nose normal, oropharynx normal Neck normal visual inspection Respiratory normal respiratory effort, lungs clear to auscultation Cardiovascular Rate/Rhythm: regular rate and regular rhythm Gastrointestinal (Abdomen) normal bowel sounds, soft, nontender, no hepatosplenomegaly Musculoskeletal Head/Neck/Chest: normocephalic and head atraumatic Neurologic PERRL, EOMI, accommodation nl, no face palsy, no dysarthria CN's II-XI intact bilaterally Psychiatric A+Ox3, euthymic affect Discharge Data Allergies Allergy/AdvReac Type Severity Reaction Status Date / Time No Known Allergies Allergy Unverified 10/25/20 17:51 Consultations 10/25/20 17:08 ED Decision to Admit Stat 10/25/20 18:02 Consult Cardiology Routine 10/26/20 08:59 Consult Case Management - Discharge Planning Routine 10/26/20 15:23 Burn CD for patient Stat Ordered Studies 10/25/20 17:34 CT angio chest PE protocol Stat 10/26/20 12:11 US carotid doppler BI Routine Hospital Course (1) Chest pain: Chest Pain due to Pericarditis with Pericardial Effusion History of Coronary artery disease with stents x 2 Leukocytosis from Pericarditis GERD (Gastroesophageal reflux disease) Cholelithiasis -This is a 77 year old Male who reports 1 year ago he had coronary artery stent which was performed in [facility] and presents to the ED with chest that started around 2 hours before arrival. Patient reports that in the recent past he has been following at the [facility] and is on metoprolol 25 mg BID, lisinopril 10 mg daily, amlodipine 5 mg daily, rosuvastatin 10 mg qhs, aspirin 81 mg qhs and reported that he had taken his morning dosings of home medications. He reports the chest pain started after normal daily activities and after the lunch time. Patient saturating well on room air. He denies other symptoms on review of systems. Allergy history: patient denies any drug or medication allergies. Family History: brother with diabetes - patient denies personal history of diabetes . Patient's initial troponin is negative and presentation EKGs in normal sinus rhythm. Despite ED physician Dr. Mcfarlane giving nitro sublingual and morphine and Fentanyl, patient continued to report chest discomfort when seen by admitting hospitalist in the ED. Patient was started on IV heparin and nitropaste q6 hours. His CTA scan was generally unremarkable: No pulmonary emboli identified. Mild cardiomegaly. Trace pericardial effusion. Extensive coronary artery calcification. No thoracic aortic dissection. Ectatic ascending aorta, measuring 4.1 cm. Minimal tree-in-bud nodules and groundglass opacities within the lungs. No consolidation. Cholelithiasis. Since on admission day, there did not seem to be strong evidence to account for persistent chest discomfort, patient was started on pantoprazole IV BID and carafate in case this is a pain from a gastrointestinal source -as of 10/26/2020 AM so far there a total of 3 negative troponins and telemetry is unremarkable other than some PVCs. follow the echocardiogram performed on 10/26/2020 and defer to cardiology consult when IV heparin can be discontinued and whether patient needs additional cardiac testing To summarize that patient presented to [facility] for chest pain on 10/25/2020 and because of patient's cardiac history, his initial treatme nt was performed in case patient was having a heart attack with trial of heparin IV drip. Patient does not have heart attack or pulmonary embolism (CTA ruled out pulmonary embolism, did see Cholelithiasis but no abdominal pain or any unusual liver enzymes) His echocardiogram revealed a small circumferential pericardial effusion (normal ejection fraction of 60 to 65 % and no cardiac tamponade) No evidence of hemodynamically significant carotid stenosis by carotid doppler study. Dr. Ledesma of cardiology has assessed that patient's symptoms are from the diagnosis of pericarditis with the pericardial effusion. This diagnosis also accounts for patient's elevated white blood cell counts of 13K on presentation and elevated CRP levels of 11 (Normal urine analysis, no pneumonia, COVID-19 screening was performed and ruled out, influenza was ruled out by swab, blood cultures from 10/25/2020 and 10/26/2020 were drawn and pending results, serum JONATHAN lab pending, serum rheumatoid factor lab pending) Patient is to be discharged from the hospital with renewed home medications of metoprolol 25 mg twice a day, amlodipine 5 mg daily, lisinopril 10 mg daily, mg every night, and rousvastatin 10 mg every night In addition patient is given prescription of colchicine 0.6 mg twice a day for 4 weeks (cardiology recommends this medication for 2 to 4 weeks only) to treat the pericarditis For pain from pericarditis, patient can take Ibuprofen 600 mg 3 times a day (take 600 mg 3 times a day for 3 days and take only if experiencing chest pain. do not take for more than 3 times in 1 day. Treatment with ibupofren should last more than 10 days) To prevent risk of bleeding from ibuprofen and to help prevent gastric reflux symptoms, patient is prescribed pantoprazole daily for 4 weeks as an acid reflux medicine) Patient follows with a volunteer clinic in [place], [place]. He may be referred to the [facility] [place] clinic [address] [place] [phone]. call to set up appointment with clinic Code Status: Full Code Total Time Total Time Spent Total Time Spent (In Minutes): 40 minutes Total Time Includes: Examination of the Patient, Discharge Planning, Medication Reconciliation and Communication With Other Providers Discharge Plan Discharge Items Patient Disposition: Home - Self-Care Reason For Visit: CHEST PAIN,HX OF CAD WITH STENTS X2 Discharge Diagnosis: History of Coronary artery disease with stents x 2 Chest Pain due to Pericarditis with Pericardial Effusion Leukocytosis from Pericarditis GERD (Gastroesophageal reflux disease) Cholelithiasis Condition on Discharge: Good Activity: Resume your previous activity Weightbearing: Full weightbearing Non-emergency contact: Primary Care Provider and Facing Slitter Call non-emergency contact if: you have any medication questions Follow-up/Referrals: [facility],Medicine [Primary Care Provider] - Diet: Heart Healthy Add Attending Provider Instructions: To summarize that patient presented to [facility] for chest pain on 10/25/2020 and because of patient's cardiac history, his initial treatment was performed in case patient was having a heart attack with trial of heparin IV drip. Patient does not have heart attack or pulmonary embolism (CTA ruled out pulmonary embolism, did see Cholelithiasis but no abdominal pain or any unusual liver enzymes) His echocardiogram revealed a small circumferential pericardial effusion (normal ejection fraction of 60 to 65 % and no cardiac tamponade) No evidence of hemodynamically significant carotid stenosis by carotid doppler study. Dr. Ledesma of cardiology has assessed that patient's symptoms are from the diagnosis of pericarditis with the pericardial effusion. This diagnosis also accounts for patient's elevated white blood cell counts of 13K on presentation and elevated CRP levels of 11 (Normal urine analysis, no pneumonia, COVID-19 screening was performed and ruled out, influenza was ruled out by swab, blood cultures from 10/25/2020 and 10/26/2020 were drawn and pending results, serum JONATHAN lab pending, serum rheumatoid factor lab pending) Add Manager Hydraulic Provider Instructions: Patient is to be discharged from the hospital with renewed home medications of metoprolol 25 mg twice a day, amlodipine 5 mg daily, lisinopril 10 mg daily, [id number] mg every night, and rousvastatin 10 mg every night In addition patient is given prescription of colchicine 0.6 mg twice a day for 4 weeks (cardiology recommends this medication for 2 to 4 weeks only) to treat the pericarditis For pain from pericarditis, patient can take Ibuprofen 600 mg 3 times a day (take 600 mg 3 times a day for 3 days and take only if experiencing chest pain. do not take for more than 3 times in 1 day. Treatment with ibupofren should last more than 10 days) To prevent risk of bleeding from ibuprofen and to help prevent gastric reflux symptoms, patient is prescribed pantoprazole daily for 4 weeks as an acid reflux medicine) Patient follows with a volunteer clinic in [place], [place]. [facility] at [facility] [address], [place] [address]. call to set up appointment with clinic Pending Studies at Discharge: Yes Stand-Alone Forms: My [facility] [employer], Smoking Cessation Medications and DC Order Prescriptions: New amlodipine [Norvasc] 5 mg Tablet 5 mg PO QAM 30 Days Qty: 30 RF: 0 aspirin 81 mg Tablet,Delayed Release (Dr/Ec) 81 mg PO HS 30 Days Qty: 30 RF: 0 lisinopril 10 mg Tablet 10 mg PO QAM 30 Days Qty: 30 RF: 0 colchicine [Colcrys] 0.6 mg Tablet 0.6 mg PO BID 30 Days Qty: 60 RF: 0 rosuvastatin [Crestor] 10 mg Tablet 10 mg PO HS 30 Days Qty: 30 RF: 0 metoprolol tartrate 25 mg Tablet 25 mg PO BID 30 Days Qty: 60 RF: 0 ibuprofen 600 mg tablet 600 mg PO TID PRN (Reason: pain) 10 Days Qty: 30 RF: 0 pantoprazole 40 mg Tablet,Delayed Release (Dr/Ec) 40 mg PO QAM 30 Days Qty: 30 RF: 0 Discontinued amlodipine 5 mg Tablet 5 mg PO DAILY RF: 0 lisinopril 10 mg Tablet 10 mg PO DAILY RF: 0 rosuvastatin 10 mg Tablet 10 mg PO DAILY RF: 0 metoprolol tartrate 25 mg Tablet 25 mg PO BID RF: 0 Discharge Orders: Discharge Order (Routine); Ordered 10/26/20 Ordered By: Jim Cardona Admission Data Admit Date/Time: 10/25/20 18:13 Attending Provider: Jim Cardona Admit Provider: Jim Cardona Primary Care Provider: [facility],Medicine Other Providers: Nelson Hankins ; Kenn Ledesma Other Interventions: Discharge Summary Assessment (RN) Last Done: 10/26/20 15:24
[2020-10-26] MEDS ORDERED: ASPIRIN 81 MG ECTAB PO SCH (21:00)
[2020-10-27 06:02] LABS: Estimated Average Glucose 114 mg/dl; Hemoglobin A1C 5.6 % (4.5-5.6)
[2020-10-27] MEDS ORDERED: PANTOprazole 40 MG TAB PO SCH (09:00)
[2020-10-29 08:58] LABS: Anti Nuclear Antibody Screen POSITIVE (NEGATIVE); Rheumatoid Factor 14 IU/mL (<14)
[2020-10-29 10:28] LABS: ANA Titer 1:40 titer
== END 2020-10-26 16:26 | disposition home or self-care (01) | DRG 315 ==
LOC: EDSEX → ED 15:47 → 2S 18:13

== ENCOUNTER 2020-11-05 09:08 | Inpatient (IN) ==
--- NOTE | 2020-11-05 09:48 | Emergency Department Note ---
Impression & Plan Chest pain, Pericardial effusion, Pericarditis ED Provider Note NAME: CHAVA OLIVIA AGE: 74 SEX: M : 1945 ARRIVES VIA: Walk-In INFORMANT: Patient ED PROVIDER(S): Gerald Cade DO CHIEF COMPLAINT: Chest pain HPI: Patient is a 74-year-old male who presents to the ER as he was recently diagnosed with pericarditis and has small effusion back in the end of September. He was discharged. He notes that today he has been having worsening chest pain. It is only present when he lies flat flat. It resolves when he sits up. He admits to shortness of breath. He missed one doses of his colchicine. He denies any fevers. He notes he has been sweating. There is a period of unresponsiveness for about 35 seconds. notes that his lips may have been blue. Patient denies any belly pain nausea vomiting or diarrhea. No dysuria urgency or frequency. No other exacerbating or remitting factors. No blood thinners. ROS: See above HPI for pertinent positives & negatives. A total of 10 systems reviewed and were otherwise negative. PAST MEDICAL HISTORY:See Below PAST SURGICAL HISTORY:See Below FAMILY HISTORY:See Below SOCIAL HISTORY:See Below HOME MEDICATIONS:See Below ALLERGIES:See Below VITALS:See Below PHYSICAL EXAMINATION: GENERAL: Sitting up in bed, alert, conically ill-appearing, disheveled, EYE EXAM: normal conjunctiva. OROPHARYNX: no exudate, no erythema, lips, buccal mucosa, and tongue normal and mucous membranes are moist NECK: +JVD LUNGS: Clear to auscultation. Normal chest wall mechanics HEART: Tachycardic, S1 normal and S2 normal ABDOMEN: abdomen soft, non-tender, normo-active bowel sounds, no masses, no rebound or guarding. UPPER EXTREMITIES: upper extremities are grossly normal. LOWER EXTREMITIES: No pitting edema. NEURO EXAM: Normal sensorium, cranial nerves II-XII grossly intact, normal speech, no gross weakness of arms, no gross weakness of legs. MEDICAL DECISION MAKING: Patient is a 74-year-old male recently admitted and discharged with pericarditis. He presents to the ER for chest pain. Resolves with sitting up worse with lying flat. Denies any blood thinners. IV was established blood work was obtained. I performed a bedside ultrasound as he was found to be hypotensive and tachycardic. Showed a large pericardial effusion. Cardiology was immediately called and we also called for stat echo who presented to bedside. Patient was found to be nearly in tamponade and was taken emergently to the [facility] I Director following evaluation by Dr. Blackmon. Labs did show leukocytosis 17,000. Mild anemia 11.7. INR was normal. BMP with mild hyponatremia. Troponin was negative. Patient was updated bedside and taken emergently to the [facility] I Director. Triage Nursing notes reviewed. Prior medical records reviewed Vital Signs: reviewed and remarkable for no significant abnormalities Differential diagnosis: Differential diagnoses includes but is not limited to acute coronary syndrome, myocardial infarction, pericarditis, pulmonary embolus, aortic dissection, pneumonia, pneumothorax, musculoskeletal, shingles, esophageal. ER treatment provided: See below Diagnostics interpreted by me: ECG: Sinus rhythm rate of 109 Normal axis No PVCs QTC 439 Cardiac Monitoring: An order was placed for continuous cardiac monitoring. The monitor shows a rate of 124 with sinus rhythm. Laboratory studies: As stated above and show below. Imaging studies: Portable AP upright 1 view of the chest shows enlarged cardiac silhouette Consultation(s): Discussed with Dr. Klever Blackmon who evaluated the patient at bedside and took him up emergently for intervention with Dr. Bains ED COURSE: Procedures: none Critical Care: I have personally spent 35 minutes of critical care time in the direct management of this patient. This includes bedside care, interpretation of diagnostic studies, and testing, discussion with consultants, patient, and family members, and other required patient management activities. This 35 minutes is in excess of all separately billable procedures. Past Med/Surg History Medical History (Updated 11/05/20 @ 15:36 by Gerald Cade DO) CAD (coronary artery disease) Dyslipidemia, goal LDL below 70 Surgical History H/O heart artery stent S/P coronary artery stent placement Family History Brother Diabetes Denies family history of Heart disease Social History (Updated 11/05/20 @ 11:48 by Elly Cross PA-C) Smoking Status: Former smoker Hx Alcohol Use: No Hx Substance Use: No Preferred Language: Azerbaijani Communication Ability: Effective Dean Of Women Required: No Beliefs That Will Affect Care: None Current Living Situation: Spouse Other Information That Helps Us Care for You: No Feels Safe at Home: Yes Safety Concerns: Feels Safe At This Time Assistive Devices: None Allergies Allergies Allergy/AdvReac Type Severity Reaction Status Date / Time No Known Allergies Allergy Unverified 11/05/20 09:33 Home Meds Previous Rx's Medication Instructions Recorded amlodipine [Norvasc] 5 mg PO QAM 30 Days #30 tab 10/26/20 aspirin 81 mg PO HS 30 Days #30 tab 10/26/20 colchicine [Colcrys] 0.6 mg PO BID 30 Days #60 tab 10/26/20 lisinopril 10 mg PO QAM 30 Days #30 tab 10/26/20 metoprolol tartrate 25 mg PO BID 30 Days #60 tab 10/26/20 pantoprazole 40 mg PO QAM 30 Days #30 tab 10/26/20 rosuvastatin [Crestor] 10 mg PO HS 30 Days #30 tab 10/26/20 Results & Data (ED) Vital Signs Vital Signs - 24 hr 11/05/20 09:12 11/05/20 09:39 11/05/20 09:45 Temperature 36.6 C Temperature Source Temporal Artery Scan Pulse Rate 110 H Pulse Rate [Apical] 106 H Respiratory Rate 20 18 Blood Pressure 119/73 Blood Pressure [Left Arm] 98/76 L Blood Pressure Mean 88 Blood Pressure Mean [Left Arm] 83 Pulse Oximetry 97 97 96 Oxygen Delivery Method Room Air Room Air Room Air Sepsis Recent Fever Within 48 Hours No Sepsis New/Unexplained Change in Mental Status N/A Sepsis Action Taken by Nursing No Action Required 11/05/20 10:08 11/05/20 11:00 Temperature Temperature Source Pulse Rate 101 H Pulse Rate [Apical] 103 H Respiratory Rate 23 Blood Pressure 114/80 Blood Pressure [Left Arm] 109/86 Blood Pressure Mean 92 Blood Pressure Mean [Left Arm] 93 Pulse Oximetry 97 Oxygen Delivery Method Room Air Sepsis Recent Fever Within 48 Hours Sepsis New/Unexplained Change in Mental Status Sepsis Action Taken by Nursing Laboratory Data Result diagrams: 11/05/20 09:20 11/05/20 14:39 Lab Results 11/05/20 11/05/20 11/05/20 Range/Units 09:20 09:20 09:20 WBC 17.11 H (4.8-10.8) K/uL RBC 3.95 L (4.7-6.1) M/uL Hgb 11.7 L (14.0-18.0) g/dL Hct 34.2 L (42-52) % MCV 86.6 (80-100) fL MCH 29.6 (25-34) pg MCHC 34.2 (32-36) g/dL RDW Std Deviation 42.2 (36.4-46.3) fL RDW Coeff of Margaux 13.2 (11.5-14.5) % Plt Count 445 H (130-400) K/uL MPV 9.9 (7.4-10.4) fL Immature Gran % (Auto) 0.4 % Neut % (Auto) 88.7 % Lymph % (Auto) 4.3 % Benzie % (Auto) 6.5 % Eos % (Auto) 0.0 % Baso % (Auto) 0.1 % Neut # (Auto) 15.17 H (1.4-6.5) K/uL Lymph # (Auto) 0.74 L (1.2-3.4) K/uL Benzie # (Auto) 1.12 H (0.11-0.59) K/uL Eos # (Auto) 0.00 (0-0.5) K/uL Baso # (Auto) 0.01 (0-0.2) K/uL Immature Gran # (Auto) 0.07 H (0.00-0.02) K/uL PT 11.4 (9.0-12.0) Seconds INR 1.1 (0.9-1.1) APTT 27.4 (21.0-31.0) Seconds PTT Ratio 1.0 Sodium 121 L (136-145) mmol/L Potassium 3.9 (3.5-5.1) mmol/L Chloride 88 L (98-107) mmol/L Carbon Dioxide 26 (21-32) mmol/L Anion Gap 7.0 (3-11) BUN 12 (7-18) mg/dl Creatinine 0.97 (0.6-1.4) mg/dl Est Cr Clr Drug Dosing 68.6 ml/min Est GFR ( Amer) 88.1 Est GFR (Non-Af Amer) 76.1 BUN/Creatinine Ratio 12.2 (10-20) Glucose 176 H (70-99) mg/dl Calcium 8.6 (8.5-10.1) mg/dl Total Bilirubin 1.1 H (0.2-1) mg/dl AST 30 (15-37) U/L ALT 48 (12-78) U/L Alkaline Phosphatase 110 (45-117) U/L Troponin I < 0.015 (0-0.045) ng/ml C-Reactive Protein 13.10 H (0-0.29) mg/dl Total Protein 6.9 (6.4-8.2) gm/dl Albumin 3.1 L (3.4-5.0) gm/dl Globulin 3.8 (2.5-4.0) gm/dl Albumin/Globulin Ratio 0.8 L (0.9-2) Lipase 178 (73-393) U/L COVID-19 Eval Order SARS-CoV-2 (PCR) (Negative) Influenza Type A (PCR) (Neg) Influenza Type B (PCR) (Neg) RSV (RT-PCR) (Neg) SARS-CoV-2, RNA, NAAT 11/05/20 11/05/20 11/05/20 Range/Units 11:00 11:00 11:00 WBC (4.8-10.8) K/uL RBC (4.7-6.1) M/uL Hgb (14.0-18.0) g/dL Hct (42-52) % MCV (80-100) fL MCH (25-34) pg MCHC (32-36) g/dL RDW Std Deviation (36.4-46.3) fL RDW Coeff of Margaux (11.5-14.5) % Plt Count (130-400) K/uL MPV (7.4-10.4) fL Immature Gran % (Auto) % Neut % (Auto) % Lymph % (Auto) % Benzie % (Auto) % Eos % (Auto) % Baso % (Auto) % Neut # (Auto) (1.4-6.5) K/uL Lymph # (Auto) (1.2-3.4) K/uL Benzie # (Auto) (0.11-0.59) K/uL Eos # (Auto) (0-0.5) K/uL Baso # (Auto) (0-0.2) K/uL Immature Gran # (Auto) (0.00-0.02) K/uL PT (9.0-12.0) Seconds INR (0.9-1.1) APTT (21.0-31.0) Seconds PTT Ratio Sodium (136-145) mmol/L Potassium (3.5-5.1) mmol/L Chloride (98-107) mmol/L Carbon Dioxide (21-32) mmol/L Anion Gap (3-11) BUN (7-18) mg/dl Creatinine (0.6-1.4) mg/dl Est Cr Clr Drug Dosing ml/min Est GFR ( Amer) Est GFR (Non-Af Amer) BUN/Creatinine Ratio (10-20) Glucose (70-99) mg/dl Calcium (8.5-10.1) mg/dl Total Bilirubin (0.2-1) mg/dl AST (15-37) U/L ALT (12-78) U/L Alkaline Phosphatase (45-117) U/L Troponin I (0-0.045) ng/ml C-Reactive Protein (0-0.29) mg/dl Total Protein (6.4-8.2) gm/dl Albumin (3.4-5.0) gm/dl Globulin (2.5-4.0) gm/dl Albumin/Globulin Ratio (0.9-2) Lipase (73-393) U/L COVID-19 Eval Order Covid19 IDNow [facility] SARS-CoV-2 (PCR) NEGATIVE (Negative) Influenza Type A (PCR) Negative (Neg) Influenza Type B (PCR) Negative (Neg) RSV (RT-PCR) Negative (Neg) SARS-CoV-2, RNA, NAAT Cancelled Administered Medications Discontinued Medications Fentanyl Citrate (Fentanyl Citrate 100 Mcg/2 Ml Vial) Confirm Administered Dose 100 mcg .ROUTE .TuneIn ONE Stop: 11/05/20 11:55 Last Increment: 11/05/20 13:12 Dose: 50 mcg Documented by: [id number] Heparin Sodium (Porcine) (Heparin (Porcine) 1000 Unit/Ml 10 Ml (Title I Director Use Only)) Confirm Administered Dose 10,000 units .ROUTE .TuneIn ONE Stop: 11/05/20 11:55 Last Admin: 11/05/20 14:12 Dose: Not Given Documented by: [id number] Heparin Sodium/Sodium Chloride (Heparin In Nss Infusion 1000 Unit/500 Ml (2 U/Ml) Bag) Confirm Administered Dose 3,000 units IV .STK-MED ONE Stop: 11/05/20 11:56 Last Admin: 11/05/20 14:12 Dose: Not Given Documented by: [id number] Sodium Chloride (Nss 1000ml) 1,000 mls @ 999 mls/hr IV .Q1H1M ONE Stop: 11/05/20 10:59 Last Infusion: 11/05/20 11:06 Dose: 0 mls/hr Documented by: [id number] Admin: 11/05/20 10:04 Dose: 999 mls/hr Documented by: [id number] Midazolam HCl (Midazolam Hcl 1 Mg/Ml 2ml Vial) Confirm Administered Dose 2 mg .ROUTE .STK-MED ONE Stop: 11/05/20 11:56 Last Admin: 11/05/20 13:12 Dose: 2 mg Documented by: [id number] Nicardipine HCl (Nicardipine Hcl Inj 2.5 Mg/Ml 10 Ml Amp) Confirm Administered Dose 25 mg .ROUTE .STK-MED ONE Stop: 11/05/20 11:55 Last Admin: 11/05/20 14:12 Dose: Not Given Documented by: [id number] Nitroglycerin/Dextrose (Nitroglycerin/D5w 100mcg/Ml 20ml Syr) Confirm Administered Dose 2,000 mcg .ROUTE .STK-MED ONE Stop: 11/05/20 11:56 Last Admin: 11/05/20 14:12 Dose: Not Given Documented by: [id number] Discharge Plan Visit Data Chief Complaint: Chest Pain Stated Complaint: CHEST PAIN ED Provider: Gerald Cade Discharge Problem: Chest pain, Pericardial effusion, Pericarditis Patient Disposition: Still a Patient Discharge Instructions Interventions: ED Discharge Assessment Last Done: 11/05/20 12:40 Discharge Problem: Chest pain Qualifiers: Chest pain type: unspecified Qualified Code(s): R07.9 - Chest pain, unspecified Pericarditis Qualifiers: Pericarditis type: unspecified type Chronicity: unspecified Qualified Code(s): I31.9 - Disease of pericardium, unspecified
[2020-11-05 09:51] LABS: Basophils # (auto) 0.01 K/uL (0-0.2); Basophils % (auto) 0.1 %; Hematocrit (blood only) 34.2 % (42-52); Hemoglobin 11.7 g/dL (14.0-18.0); Immature Granulocytes # (auto) 0.07 K/uL (0.00-0.02); Immature Granulocytes % (auto) 0.4 %; Lymphocytes # (auto) 0.74 K/uL (1.2-3.4); Lymphocytes % (auto) 4.3 %; Mean Corpuscular Hemoglobin 29.6 pg (25-34); Mean Corpuscular Hgb Conc 34.2 g/dL (32-36); Mean Corpuscular Volume 86.6 fL (80-100); Mean Platelet Volume 9.9 fL (7.4-10.4); Monocytes # (auto) 1.12 K/uL (0.11-0.59); Monocytes % (auto) 6.5 %; Neutrophils # (auto) 15.17 K/uL (1.4-6.5); Neutrophils % (auto) 88.7 %; Platelet Count 445 K/uL (130-400); RDW Coefficient of Variation 13.2 % (11.5-14.5); RDW Standard Deviation 42.2 fL (36.4-46.3); Red Blood Count 3.95 M/uL (4.7-6.1); White Blood Count 17.11 K/uL (4.8-10.8)
[2020-11-05] MEDS ORDERED: SODIUM CHLORIDE 0.9% 1000ML 1,000 ML IV ONE (09:59)
[2020-11-05 10:04] LABS: INR 1.1 (0.9-1.1); Partial Thromboplastin Time 27.4 Seconds (21.0-31.0); Prothrombin Time 11.4 Seconds (9.0-12.0)
[2020-11-05 10:08] LABS: Alanine Aminotransferase 48 U/L (12-78); Albumin Level 3.1 gm/dl (3.4-5.0); Aspartate Aminotransferase 30 U/L (15-37); BUN Creatinine Ratio 12.2 (10-20); Blood Urea Nitrogen 12 mg/dl (7-18); Calcium 8.6 mg/dl (8.5-10.1); Carbon Dioxide 26 mmol/L (21-32); Chloride 88 mmol/L (98-107); Creatinine Clr Calc Pharmacy 68.6 ml/min; Est GFR (African American) 88.1; Est GFR (Non-African American) 76.1; Glucose 176 mg/dl (70-99); Lipase 178 U/L (73-393); Potassium 3.9 mmol/L (3.5-5.1); Sodium 121 mmol/L (136-145)
[2020-11-05 10:13] LABS: Albumin Globulin Ratio 0.8 (0.9-2); Alkaline Phosphatase 110 U/L (45-117); Bilirubin,Total 1.1 mg/dl (0.2-1); Globulin 3.8 gm/dl (2.5-4.0); Total Protein 6.9 gm/dl (6.4-8.2); Troponin I < 0.015 ng/ml (0-0.045)
--- NOTE | 2020-11-05 10:53 | XRay Report ---
XR chest 1V portable CLINICAL HISTORY: Atypical chest pain COMPARISON STUDY: 10/25/2020 FINDINGS: The heart remains enlarged. Slightly prominent markings at the left medial lung base remain s similar to the prior study and likely represent vessels viewed through the heart shadow. There is n o lobar consolidation. There is no failure. There are no pleural effusions.[ IMPRESSION: Cardiomegaly. No acute findings. ACT 112: Negative or not required by law. Electronically signed by: Kendrick Tan M.D. 11/05/2020 10:51 AM
--- NOTE | 2020-11-05 11:26 | Cardiology Consultation ---
Date of Consultation November 05, 2020 Assessment & Plan (1) Pericardial effusion with cardiac tamponade: 74-year-old male recently hospitalized with acute pericarditis on 10/25/2020 treated appropriate with colchicine and ibuprofen presents now with clinical decline increasing diaphoresis malaise and possible episode of nonresponsiveness this morning. Echocardiogram demonstrates large pericardial effusion is a substantial change from prior study.. There is etiologic findings consistent with tamponade on echocardiography Plan: Patient referred for urgent pericardiocentesis today. Powder Press Operator and echo lab notified. Fluid to be sent for culture including AFB. We will follow in hospital History of Present Illness Reason for Consultation: Pericardial effusion, tamponade Requesting Physician: Dr. Cade History of Present Illness Patient is a 74-year-old male's history is notable for 1. Acute pericarditis 10/25/2020 2. Atherosclerotic coronary disease status post single-vessel coronary intervention April 2019, [place] 3. Hypertension 4. Hyperlipidemia Patient is referred now with recent history as noted above. Was seen and admitted in late September with symptoms of pleuritic chest discomfort and evidence of pericarditis by echo and EKG. Patient was treated with ibuprofen and colchicine with improvement in symptoms but has continued to have symptoms of pleuritic pain as ibuprofen wears off. Patient now notes 2 days history of weakness fatigue and intermittent diaphoresis. Patient had increasing malaise and fatigue. found patient difficult to arouse this morning and contacted outpatient cardiology clinic with subsequent referred to the emergency room. Patient on presentation initially tachycardic and hypotensive responding to IV fluid infusion. Echocardiogram performed at bedside demonstrated large pericardial effusion with right ventricular compromise. Patient notes no overt fevers or chills. Does have diaphoresis with intermittent episodes. Notes no headache or visual changes. Notes no bleeding difficulties. Notes no rash arthritic complaints. No prior history of myoca rdial infarction but underwent coronary invention as above for angina pectoris. No history of TB or TB exposure. Appetite is been recently poor. Has been taking colchicine and ibuprofen as prescribed with some irritation with colchicine resulting in missed doses Allergies Allergy/AdvReac Type Severity Reaction Status Date / Time No Known Allergies Allergy Unverified 11/05/20 09:33 Home Medications Medication Instructions Recorded Confirmed Type amlodipine [Norvasc] 5 mg PO QAM 30 Days #30 tab 10/26/20 11/05/20 Rx aspirin 81 mg PO HS 30 Days #30 tab 10/26/20 11/05/20 Rx colchicine [Colcrys] 0.6 mg PO BID 30 Days #60 tab 10/26/20 11/05/20 Rx lisinopril 10 mg PO QAM 30 Days #30 tab 10/26/20 11/05/20 Rx metoprolol tartrate 25 mg PO BID 30 Days #60 tab 10/26/20 11/05/20 Rx pantoprazole 40 mg PO QAM 30 Days #30 tab 10/26/20 11/05/20 Rx rosuvastatin [Crestor] 10 mg PO HS 30 Days #30 tab 10/26/20 11/05/20 Rx Patient History Medical History CAD (coronary artery disease) Dyslipidemia, goal LDL below 70 Surgical History H/O heart artery stent S/P coronary artery stent placement Social History Smoking Status: Former smoker Hx Alcohol Use: Yes Alcohol type: wine Hx Substance Use: No Preferred Language: Cape Verdean Communication Ability: Effective Makeup Sales Consultant Required: No Beliefs That Will Affect Care: None Current Living Situation: Spouse Other Information That Helps Us Care for You: No Feels Safe at Home: Yes Safety Concerns: Feels Safe At This Time Assistive Devices: None Review of Systems Review of Systems: All systems reviewed & are unremarkable except as noted in HPI & below Physical Exam Constitutional: + ill appearing and + diaphoretic Eyes: PERRL, conjunctivae normal, anicteric sclerae ENMT: external ear and nose normal, oropharynx normal Neck: trachea midline, no thyromegaly Cardiovascular: Rate/Rhythm: regular rhythm and + tachycardic Vessels: + JVD Gastrointestinal (Abdomen): normal bowel sounds, soft, nontender, no hepatosplenomegaly Musculoskeletal: no cyanosis or clubbing, extremities motor strength 5/5 Neurologic: PERRL, EOMI, accommodation nl, no face palsy, no dysarthria Psychiatric: A+Ox3, euthymic affect Results & Data ([place]) Vital Signs (Past 12 Hours) Vital Signs Temp Pulse Pulse Resp BP BP Pulse Ox 11/05/20 10:08 103 H 109/86 97 11/05/20 09:45 96 11/05/20 09:39 106 H 18 98/76 L 97 11/05/20 09:12 36.6 C 110 H 20 119/73 97
--- NOTE | 2020-11-05 11:48 | History & Physical Report ---
Date of Service November 05, 2020 Assessment & Plan (1) Pericardial effusion with cardiac tamponade: (2) CAD (coronary artery disease): This is a 74-year-old male who has significant past medical history of CAD, HTN, HLD and GERD who presents to ED secondary to ill feeling and worsening cardiac symptoms since discharge x3 to 4 days. Patient hospitalized 10/25 and 10/26 secondary to acute pericarditis treated with colchicine and ibuprofen. Clinically patient has deteriorated with eviden ce of pericardial tamponade on echocardiogram. Cardiology consulted and referral has been made for urgent pericardiocentesis with drainage. Discussed with Dr. Blackmon. Patient to undergo pericardiocentesis by Dr. Bains and will be admitted to ICU for ongoing care. Work-up during previous admission revealed elevated rheumatoid factor, positive JONATHAN screen, 1:40 titer, influenza and SARS cov2 negative will order PPD, TSH w/ T4, cultures per cardiology Leukocytosis/Elevated CRP likely in setting of tamponade blood cultures pending, cultures to be obtained from pericardiocentesis quantiferon test ordered, procal Hyponatremia corrected Na 123 He received 1L of IVF while in ED will repeat bmp post pericardiocentesis to determine fluid needs and continue to trend CAD HTN hx of stent x 2 04/2019 in [place] on ASA, Statin, metoprolol and lisinopril as outpt hold lisinopril/amlodipine for now in setting of lower BP continue metoprolol HLD continue statin Fasting lipid panel ( LDL45, HDL 56, Chol 127, trig 132) 10/25 A1C 5.6 10/25 DVT PPX: SCD/TEDS Disposition: admit to ICU Follow up: PCP [facility] upon discharge along with cardiology follow up Pt was seen and examined in collaboration with Dr. Cho, please see addendum FULL CODE History of Present Illness Chief Complaint: Ill feeling and SOB x 3-4 days. Primary Care Provider: [facility] This is a 74-year-old male who has significant past medical history of CAD, HTN, HLD and GERD who presents to ED secondary to ill feeling and worsening cardiac symptoms since discharge x3 to 4 days. Of significance patient hospitalized 10/25-10/26 secondary to acute onset chest pain. He was diagnosed with acute pericarditis and treated appropriately with colchicine and ibuprofen. Upon discharge he admits to being compliant with colchicine, but felt ibuprofen improved symptoms. He continued to feel malaise, fatigue, shortness of breath with exertion, orthopnea and chest pain with exertion. Per history patient was found by this morning and found to be unarousable and contacted cardiology clinic. He was then referred to ER. In ED initially he was tachycardic and hy potensive which responded to IV fluid resuscitation. Initial echocardiogram at bedside demonstrated large pericardial effusion with evidence of tamponade. Cardiology was immediately consulted and he is being referred for urgent pericardiocentesis. He denies any recent fever, chills, sweats, lightheadedness, dizziness, hemoptysis, URI symptoms, nausea, vomiting, abdominal pain, dysuria, increased urgency or frequency with urination, diarrhea, melena. He does admit to occasional dry cough but associates this with GERD. Appetite overall poor. Of significance patient is from [facility]. He has resided in [place] since 2000, but goes back to [facility] every summer for that, "." May 18, 2019 he suffered heart attack requiring 2 stent placements. He is currently on a regiment of aspirin, lisinopril, metoprolol and rosuvastatin. Allergies Allergy/AdvReac Type Severity Reaction Status Date / Time No Known Allergies Allergy Unverified 11/05/20 09:33 Home Medications Medication Instructions Recorded Confirmed Type amlodipine [Norvasc] 5 mg PO QAM 30 Days #30 tab 10/26/20 11/05/20 Rx aspirin 81 mg PO HS 30 Days #30 tab 10/26/20 11/05/20 Rx colchicine [Colcrys] 0.6 mg PO BID 30 Days #60 tab 10/26/20 11/05/20 Rx lisinopril 10 mg PO QAM 30 Days #30 tab 10/26/20 11/05/20 Rx metoprolol tartrate 25 mg PO BID 30 Days #60 tab 10/26/20 11/05/20 Rx pantoprazole 40 mg PO QAM 30 Days #30 tab 10/26/20 11/05/20 Rx rosuvastatin [Crestor] 10 mg PO HS 30 Days #30 tab 10/26/20 11/05/20 Rx Past Med/Surg History Medical History (Updated 11/05/20 @ 20:24 by KAT Koroma) CAD (coronary artery disease) Dyslipidemia, goal LDL below 70 Surgical History H/O heart artery stent S/P coronary artery stent placement Family History Brother Diabetes Denies family history of Heart disease Social History (Updated 11/05/20 @ 11:48 by Elly Cross PA-C) Smoking Status: Former smoker Hx Alcohol Use: No Hx Substance Use: No Preferred Language: Lithuanian Communication Ability: Effective Fagoting Machine Operator Required: No Beliefs That Will Affect Care: None Current Living Situation: Spouse Other Information That Helps Us Care for You: No Feels Safe at Home: Yes Safety Concerns: Feels Safe At This Time Assistive Devices: None Review of Systems Review of Systems: All systems reviewed & are unremarkable except as noted in HPI & below Physical Exam Physical Exam: Constitutional: Chronically ill-appearing male, sitting up in bed answers questions appropriately, vitals as above, NAD Head: Normocephalic, Atraumatic Eyes: PERRL, conjunctivae normal, anicteric sclerae ENMT: external ear and nose normal, oropharynx normal Neck: trachea midline, no thyromegaly normal visual inspection Respiratory: normal respiratory effort, lungs clear to auscultation, no wheeze, rales, rhonchi. Normal insp/exp effort, no accessory muscle use Cardiovascular: tachycardic rate, regular rhythm, no murmur, no edema Vessels: + JVD or carotid bruit Chest: normal inspection of chest Abdomen: normal bowel sounds, soft, nontender, no hepatosplenomegaly Musculoskeletal: no cyanosis or clubbing, extremities motor strength 5/5 Skin: no rashes, warm and dry normal turgor Neurologic: PERRL, EOMI, accommodation nl, no face palsy, no dysarthria CN's II-XI intact bilaterally and moves all extremities Psychiatric: A+Ox3, euthymic affect : deferred Results & Data Results & Data ([facility]) Vital Signs (Past 12 Hours) Vital Signs Temp Pulse Pulse Resp BP BP Pulse Ox 11/05/20 10:08 103 H 109/86 97 11/05/20 09:45 96 11/05/20 09:39 106 H 18 98/76 L 97 11/05/20 09:12 36.6 C 110 H 20 119/73 97 Laboratory Results Short CBC 11/05/20 Range/Units 09:20 WBC 17.11 H (4.8-10.8) K/uL Hgb 11.7 L (14.0-18.0) g/dL Hct 34.2 L (42-52) % Plt Count 445 H (130-400) K/uL BMP 11/05/20 09:20 Sodium 121 L Potassium 3.9 Chloride 88 L Carbon Dioxide 26 BUN 12 Creatinine 0.97 Glucose 176 H Calcium 8.6 Cardiac Enzymes 11/05/20 Range/Units 09:20 Troponin I < 0.015 (0-0.045) ng/ml Liver Function 11/05/20 Range/Units 09:20 Total Bilirubin 1.1 H (0.2-1) mg/dl AST 30 (15-37) U/L ALT 48 (12-78) U/L Alkaline Phosphatase 110 (45-117) U/L Albumin 3.1 L (3.4-5.0) gm/dl Diagnostic Findings CXR: IMPRESSION: Cardiomegaly. No acute findings. Echocardiogram: Large pericardial effusion, diastolic compression of the right ventricle suggestive of cardiac tamponade, inferior vena cava moderately dilated, EF 65 to 70%, mild concentric LVH. Comparison to study from 10/26 there is substantial increase in pericardial effusion with no tamponade physiology Medications Administered Discontinued Medications Sodium Chloride (Nss 1000ml) 1,000 mls @ 999 mls/hr IV .Q1H1M ONE Stop: 11/05/20 10:59 Last Infusion: 11/05/20 11:06 Dose: 0 mls/hr Documented by: [id number] Admin: 11/05/20 10:04 Dose: 999 mls/hr Documented by: [id number] ECG Rate (beats per minute): 109 Rhythm: sinus tachycardia Code Status & VTE Plan Code Status Full Code VTE Prophylaxis Plan VTE Prophylaxis will be ordered: Yes Reason for no VTE drug order: Contraindicated (undergoing pericardiocentesis with drainage) Supervising Physician Co-Signing Physician Notes I have seen and examined the patient and have discussed the case with the provider above. I agree with the assessment and plan as stated. The patient is a 74 yo ill-appearing man who presented with malaise and recent diaphoresis at home, found to have a large bloody pericardial effusion and evidence of tamponade. As he hasn't been feeling well, and not eating much his Na which is normal at baseline, is now 121 this morning. He was given some IVF initially and placed in the ICU. Na was trended and this riya to 130. Contacted Nephrology who advised desmopressin and D5 with repeat Na in 4 hours. Formal consult was placed. ICU nurse was updated of the change. On physical exam he is well appearing and ambulatory. Lungs are clear to auscultation and cardiac exam reveals a transcutaneous catheter placed post-pericardiocentesis that is draining a bloody fluid. S1/2 heard without murmurs and no edema present. I did not appreciate JVD as my exam took place post-procedure. He was mentating well. He also reported 10 lb weight loss over a few months and night sweats. ROS was otherwise negative. As he is originally from [facility] and may have had the BCG test in the past, and because the logistics of reading a skin test in the hospital are not great, a Quantiferon was ordered to screen for latent TB. cont plan as above and convalesce in the ICU with cardiology guiding care plan. DO Marquis (1) CAD (coronary artery disease) Associated angina: with unstable angina Coronary Disease-Associated Artery/Lesion type: unspecified vessel or lesion type [place] vs. transplanted heart: [place] heart Qualified Code(s): I25.110 - Atherosclerotic heart disease of [place] coronary artery with unstable angina pectoris
[2020-11-05] MEDS ORDERED: fentaNYL citrate 100 MCG/2 ML VIAL ONE (11:54)
[2020-11-05] MEDS ORDERED: HEPARIN (PORCINE) 1000 UNIT/ML 10 ML (CATH LAB USE ONLY) ONE (11:54)
[2020-11-05] MEDS ORDERED: niCARdipine HCL INJ 2.5 MG/ML 10 ML AMP ONE (11:54)
[2020-11-05] MEDS ORDERED: MIDAZOLAM HCL 1 MG/ML 2ML VIAL ONE (11:55)
[2020-11-05] MEDS ORDERED: NITROGLYCERIN/D5W 100MCG/ML 20ML SYR ONE (11:55)
[2020-11-05] MEDS ORDERED: TUBERCULIN SKIN TEST 5 TU in SYRINGE 0 ML ID ONE (12:00)
--- NOTE | 2020-11-05 12:11 | Critical Care Consultation ---
Date of Consultation November 05, 2020 History of Present Illness Allergies Allergy/AdvReac Type Severity Reaction Status Date / Time No Known Allergies Allergy Unverified 11/05/20 09:33 Home Medications Medication Instructions Recorded Confirmed Type amlodipine [Norvasc] 5 mg PO QAM 30 Days #30 tab 10/26/20 11/05/20 Rx aspirin 81 mg PO HS 30 Days #30 tab 10/26/20 11/05/20 Rx colchicine [Colcrys] 0.6 mg PO BID 30 Days #60 tab 10/26/20 11/05/20 Rx lisinopril 10 mg PO QAM 30 Days #30 tab 10/26/20 11/05/20 Rx metoprolol tartrate 25 mg PO BID 30 Days #60 tab 10/26/20 11/05/20 Rx pantoprazole 40 mg PO QAM 30 Days #30 tab 10/26/20 11/05/20 Rx rosuvastatin [Crestor] 10 mg PO HS 30 Days #30 tab 10/26/20 11/05/20 Rx Patient History Medical History (Updated 11/05/20 @ 11:59 by Elly Cross PA-C) CAD (coronary artery disease) Dyslipidemia, goal LDL below 70 Surgical History H/O heart artery stent S/P coronary artery stent placement Family History Brother Diabetes Denies family history of Heart disease Social History (Updated 11/05/20 @ 11:48 by Elly Cross PA-C) Smoking Status: Former smoker Hx Alcohol Use: Yes Alcohol type: wine Alcohol Intake Frequency: 2-3 x/Week Alcohol Intake Frequency Comment: 8oz a week Hx Substance Use: No Preferred Language: Arabic Communication Ability: Effective Music Leader Required: No Beliefs That Will Affect Care: None Current Living Situation: Spouse Other Information That Helps Us Care for You: No Feels Safe at Home: Yes Safety Concerns: Feels Safe At This Time Assistive Devices: None Results & Data Results & Data ([facility]) Vital Signs (Past 12 Hours) Vital Signs Temp Pulse Pulse Resp BP BP Pulse Ox 11/05/20 11:00 101 H 23 114/80 11/05/20 10:08 103 H 109/86 97 11/05/20 09:45 96 11/05/20 09:39 106 H 18 98/76 L 97 11/05/20 09:12 36.6 C 110 H 20 119/73 97 Coding
[2020-11-05 12:13] LABS: Influenza A virus by PCR Negative (Neg); Influenza B virus by PCR Negative (Neg); RSV by PCR Negative (Neg); SARS CoV2 RNA(COVID-19) InHosp NEGATIVE (Negative)
--- NOTE | 2020-11-05 12:22 | Pre Anesthesia Assessment ---
Date of Service November 05, 2020 Pre Sedation Assessment Vital Signs Temp Pulse Pulse Resp BP BP Pulse Ox 11/05/20 12:09 99.1 F 109 H 16 111/90 99 11/05/20 11:00 101 H 23 114/80 11/05/20 10:08 103 H 109/86 97 11/05/20 09:45 96 11/05/20 09:39 106 H 18 98/76 L 97 11/05/20 09:12 97.9 F 110 H 20 119/73 97 Cardiovascular RRR, no murmur, no edema Respiratory normal respiratory effort, lungs clear to auscultation Pre-Sedation Airway Assessment Smoking Status: Former smoker Hx Sleep Apnea: No Hx Difficult Intubation: No Short, Thick Neck: No Thyromental Distance: > or= 3.5 Finger Breadths Oral Cavity: + Dental Abnormalities Mallampati Class: III ASA: ASA2 NPO Status Date of Last Intake of Fluids: 11/05/20 Time of Last Intake of Fluids: 07:00 Date of Last Intake of Solid Food: 11/05/20 Time of Last Intake of Solid Foods: 07:00 Last Intake of Solids Comment: banana and half cookie Procedure Planning Contraindications for Sedation: none Current Medications Reviewed: Yes Notes The planned sedation has been discussed with the patient. Informed Consent was obtained. I have identified the patient, determined the appropriateness of sedation and have assessed the patient immediately prior to the procedure. All medicine(s) and interventions are by my order.
--- NOTE | 2020-11-05 12:47 | Electrocardiogram Report ---
Test Reason : Blood Pressure : / mmHG Vent. Rate : 109 BPM Atrial Rate : 109 BPM P-R Int : 152 ms QRS Dur : 066 ms QT Int : 326 ms P-R-T Axes : 018 029 044 degrees QTc Int : 439 ms Sinus tachycardia with Premature atrial complexes Otherwise normal ECG When compared with ECG of 26-OCT-2020 09:54, Premature atrial complexes are now Present ST no longer elevated in Inferior leads ST no longer elevated in Anterolateral leads T wave amplitude has decreased in Anterolateral leads Confirmed by Usama Crockett ([id number]) on 11/05/2020 12:46:58 PM Referred By: [facility] Confirmed By:Usama Crockett
--- NOTE | 2020-11-05 13:21 | Cardiac Catheterization ---
[facility] Data: Public Events Facilities Rental Manager Cardiac Status Clinical evaluation leading to the procedure CAD Presenation: Sx unlikely to be ischemic Anginal Classification: No Symptoms Heart Failure: No Cardiogenic Shock within 24 Hours: No Cardiac Arrest within 24 Hours: No Imaging Studies Past 6 Months: Yes Stress Studies Past 6 Months: No Diagnostic Physicians Name: Mehran Bains MD Status: Urgent Closure Device Recommendations: Management Recommendatons (Pericardial drain in place) Intraprocedure Events Significant Disection: No Perforation: No Cardiac Cath Procedure Full Procedure Date November 05, 2020 Pre-Procedure Diagnosis Pre-Procedure Diagnosis: Pericardial Disease (Pericardial effusion) AUC Score AUC Score: 8 Post-Procedure Diagnosis Post-Procedure Diagnosis: Cardiothoracic Finding (Large bloody pericardial effusion) Procedure(s) Performed Procedure(s) Performed: Pericardiocentesis Crm Solution Architect Mehran Bains MD Box Printer(s) Placido Estimated Blood Loss Estimated Blood Loss: 5 ml, 800 ml bloody pericardial fluid Medication(s) Medication(s): Fentanyl and Lidocaine 1% Summary of Findings Ultrasound guided pericardiocentesis Indication: Recent pericarditis, readmitted with presyncope found to have new large pericardial effusion with early tamponade echocardiographic signs. Procedure: Moderate sedation with fentanyl, midazolam Apical under echocardiographic guidance Local anesthesia with lidocaine Pericardial space accessed with micropuncture needle Confirmation of pericardial space with injection of saline contrast 6 Fr pericardial drain placed in the pericardial space over Amplatz wire 800 mL of bloody fluid removed. Sample sent for cell count and cultures. Drain sutured in place and left to suction Summary: 1. Successful pericardiocentesis with removal of 800 mL of grossly bloody fluid. Recommendations: Pericardial drain left to suction overnight Monitor outputs per shift and repeat echocardiogram in a.m. Possible drain removal tomorrow Follow-up cell counts and culture Hemodynamics Rest Ao:: Final Ao: LV: Recommendations Recommendations: Management Recommendatons (Pericardial drain in place) Specimens Specimens: Bloody fluid Radiation Exposure (mGy) 213 Contrast (mls) -- Fluids (cc crystalloids) Fluids (cc crystalloids): 100 Drains Drains: Pericardial drain Anesthesia Moderate Procedural Complication(s) None Disposition ICU I attest to the content of the Intraoperative Record and any orders documented therein. Any exceptions are noted below. [facility] Card Cath Procedure Codes Therapeutic Services & Ancillary Proc Procedure 1: Cardiovascular Tx and Anc Procedures: 36550 Ultrasonic Guidance Pericardiocentesis Procedure 2: Cardiovascular Tx and Anc Procedures: 40377 Pericardiocentesis; initial Moderate Sedation Procedure 1: Sedation/Anesthesia: 07033 Mod Sedation by the same physician;Init15 Min Child Age 5 & Up PG Care Time/CCT Total # of Minutes Spent Total Time Spent with Patient: Total time spent is greater than 50% in coordination of care (as documented) at patient's floor/unit and/or counseling patient:
[2020-11-05] MEDS ORDERED: METOPROLOL TARTRATE 50 MG TAB PO ONE (13:22)
[2020-11-05 14:05] LABS: Basophils, Fluid 0 %; Eosinophils, Fluid 1 %; Lymphocytes, Fluid 49 %; Mono,Macrophage,Mesothelial 7 %; Neutrophils, Fluid 43 %; Pericardial Fluid Appearance BLOODY; Pericardial Fluid Color RED; RBC Pericardial Fluid (A) 742000 /uL; WBC Pericardial Fluid (A) 4542 /ul
[2020-11-05] MEDS ORDERED: ICU PROTOCOL FOR HYPERGLYCEMIA PRN (14:09)
[2020-11-05 15:19] LABS: BUN Creatinine Ratio 14.3 (10-20); Calcium 8.3 mg/dl (8.5-10.1); Creatinine Clr Calc Pharmacy 86.4 ml/min; Est GFR (African American) 102.9; Est GFR (Non-African American) 88.8; Potassium 3.8 mmol/L (3.5-5.1)
[2020-11-05 18:29] LABS: BUN Creatinine Ratio 14.1 (10-20); Calcium 8.5 mg/dl (8.5-10.1); Creatinine Clr Calc Pharmacy 88.7 ml/min; Est GFR (Non-African American) 89.7; Potassium 4.1 mmol/L (3.5-5.1)
--- NOTE | 2020-11-05 19:58 | Critical Care Consultation ---
Date of Consultation November 05, 2020 Assessment & Plan (1) Admitted to intensive care unit: Impression: 74-year-old male admitted to the ICU following pericardial effusion with tamponade status post pericardial drain currently set to suction. 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 EF 65 to 70%. -S/p pericardial drain with 800 mL of grossly bloody fluid removed, pericardial drain left in place and placed at suction per cardiology management -We will follow cardiology recommendations in regards to drain removal -Refer to cardiology regarding continuation of colchicine and ibuprofen recommendation -Patient admitted to ICU for time being Tachycardiapatient remains mildly tachycardic with heart rate in the 1 teens, continue metoprolol. Blood pressure normotensive CAD/ [facility] - hold lisinopril and amlodipine for now, continue ASA and statin - troponin negative - monitor on telemetry Respiratory - No history of pulmonary disease, maintaining sats on room air Continuous monitor on pulse ox GI - Heart healthy diet GERDProtonix p.o. RENAL/LYTES - Creatinine within normal limits, monitor routine BMPs and replete electrolytes as indicated Hyponatremia- corrected Na of 123 and improved with initial IV fluid bolus in ED - will hold additional IV fluids for the time being and continue to trend - Strict I's and O's ENDO - No history of diabetes or thyroid disease, ICU hyperglycemic protocol HEME - H&H within normal limits, monitor drain output as patient did have 800 mL ID - No indication for infectious process at this time. Pericardial fluid not purulent, will follow cultures LINES/IV ACCESS - PIV's DVT PROPHYLAXIS - SCDs, hold anticoagulants for now as patient with gross bloody drainage w/ pericardial drain in place Thank you for allowing us to participate in the care of this patient. Please refer to my attending physician's documentation for any further recommendations. (2) Dyslipidemia: (3) Pericardial effusion with cardiac tamponade: (4) Pericarditis: (5) Pericardial effusion: (6) Chest pain: (7) CAD (coronary artery disease): History of Present Illness Attending Physician: Debbie Cho, DO History of Present Illness 74-year-old male PMH of CAD (coronary event 2019), HTN, HLD, GERD and recent admission for acute pericarditis (10/25-10/26) which he was treated with colchicine and ibuprofen. He presented to the emergency department earlier today with complaints of worsening cardiac symptoms including fatigue, shortness of breath, and chest pain with exertion and was found by this morning to be unarousable. Was found to be hypotensive and tachycardic but responded to IV fluids. Patient did state that he was compliant with colchicine but was not taking the ibuprofen. An echocardiogram at the bedside demonstrated a large pericardial effusion with evidence of tamponade for which cardiology was emergently consulted and he underwent urgent pericardiocentesis. 800 mL of grossly bloody fluid removed and sample sent for cell counts and cultures, drain sutured in place left dysfunction and patient transferred to ICU. On exam patient is alert and oriented appears comfortable at rest laying in bed. He currently denies any cardiac symptoms. He denies chest pain, shortness of breath, dizziness, syncope, palpitations, or swelling in hands and feet. He denies recent fevers or respiratory illness. He denies abdominal pain, nausea or vomiting or diarrhea. Patient remained in ICU for further monitoring and pericardial drain left to suction per cardiology management. Allergies Allergy/AdvReac Type Severity Reaction Status Date / Time No Known Allergies Allergy Unverified 11/05/20 09:33 Home Medications Medication Instructions Recorded Confirmed Type amlodipine [Norvasc] 5 mg PO QAM 30 Days #30 tab 10/26/20 11/05/20 Rx aspirin 81 mg PO HS 30 Days #30 tab 10/26/20 11/05/20 Rx colchicine [Colcrys] 0.6 mg PO BID 30 Days #60 tab 10/26/20 11/05/20 Rx lisinopril 10 mg PO QAM 30 Days #30 tab 10/26/20 11/05/20 Rx metoprolol tartrate 25 mg PO BID 30 Days #60 tab 10/26/20 11/05/20 Rx pantoprazole 40 mg PO QAM 30 Days #30 tab 10/26/20 11/05/20 Rx rosuvastatin [Crestor] 10 mg PO HS 30 Days #30 tab 10/26/20 11/05/20 Rx Patient History Medical History (Updated 11/05/20 @ 20:24 by KAT Koroma) CAD (coronary artery disease) Dyslipidemia, goal LDL below 70 Surgical History H/O heart artery stent S/P coronary artery stent placement Family History Brother Diabetes Denies family history of Heart disease Social History (Updated 11/05/20 @ 11:48 by Elly Cross PA-C) Smoking Status: Former smoker Hx Alcohol Use: No Hx Substance Use: No Preferred Language: Urdu Communication Ability: Effective [place] Required: No Beliefs That Will Affect Care: None Current Living Situation: Spouse Other Information That Helps Us Care for You: No Feels Safe at Home: Yes Safety Concerns: Feels Safe At This Time Assistive Devices: None Review of Systems Review of Systems: All systems reviewed & are unremarkable except as noted in HPI & below Physical Exam Constitutional: well groomed, cooperative and comfortable Eyes: PERRL, conjunctivae normal, anicteric sclerae ENMT: external ear and nose normal, oropharynx normal Neck: trachea midline, no thyromegaly Respiratory: normal respiratory effort, lungs clear to auscultation Cardiovascular: RRR, no murmur, no edema Rate/Rhythm: + tachycardic Heart Sounds: normal S1 and normal S2 Vessels: no JVD Extremities: normal capillary refill; no edema Gastrointestinal (Abdomen): normal bowel sounds, soft, nontender, no hepatosplenomegaly Musculoskeletal: no cyanosis or clubbing, extremities motor strength 5/5 Skin: no rashes, warm and dry Neurologic: PERRL, EOMI, accommodation nl, no face palsy, no dysarthria Psychiatric: A+Ox3, euthymic affect Results & Data Results & Data ([facility]) Vital Signs (Past 12 Hours) Vital Signs Temp Pulse Pulse Resp BP BP Pulse Ox 11/05/20 18:10 124 H 24 93 11/05/20 18:01 127 H 30 H 94 11/05/20 18:00 127 H 25 H 119/72 96 11/05/20 17:59 36.6 C 11/05/20 17:50 127 H 21 96 11/05/20 17:40 121 H 22 96 11/05/20 17:30 125 H 19 96 11/05/20 17:20 128 H 19 90 11/05/20 17:10 123 H 23 96 11/05/20 17:01 124 H 22 118/83 96 11/05/20 17:00 127 H 20 98 11/05/20 16:50 128 H 19 97 11/05/20 16:40 133 H 21 97 11/05/20 16:37 136 H 20 125/61 97 11/05/20 16:30 144 H 29 H 95 11/05/20 16:20 134 H 19 97 11/05/20 16:15 132 H 25 H 126/87 95 11/05/20 16:10 132 H 22 96 11/05/20 16:01 136 H 19 129/88 95 11/05/20 16:00 140 H 21 96 11/05/20 15:54 133 H 21 124/75 94 11/05/20 15:50 132 H 23 91 11/05/20 15:40 132 H 28 H 95 11/05/20 15:31 130 H 23 91 11/05/20 15:30 130 H 25 H 131/83 92 11/05/20 15:20 127 H 22 93 11/05/20 15:15 130 H 25 H 120/87 94 11/05/20 15:10 127 H 24 93 11/05/20 15:01 128 H 20 96 11/05/20 15:00 129 H 24 137/89 97 11/05/20 14:51 128 H 30 H 135/90 98 11/05/20 14:50 130 H 25 H 95 11/05/20 14:40 125 H 27 H 95 11/05/20 14:31 127 H 25 H 128/83 95 11/05/20 14:30 127 H 22 95 11/05/20 14:21 127 H 21 96 11/05/20 14:20 131 H 30 H 165/91 H 95 11/05/20 14:10 123 H 23 96 11/05/20 14:01 123 H 22 94 11/05/20 14:00 123 H 20 119/82 96 11/05/20 13:50 127 H 26 H 97 11/05/20 13:45 129 H 32 H 131/102 H 95 11/05/20 13:44 130 H 25 H 143/119 H 11/05/20 13:43 117 H 16 11/05/20 13:34 96 11/05/20 13:32 131/88 11/05/20 12:09 37.3 C 109 H 16 111/90 99 11/05/20 11:00 101 H 23 114/80 11/05/20 10:08 103 H 109/86 97 11/05/20 09:45 96 11/05/20 09:39 106 H 18 98/76 L 97 11/05/20 09:12 36.6 C 110 H 20 119/73 97 Coding Level of Care Code 10259 Inpt Consult Level 5 Diagnoses Admitted to intensive care unit Z78.9 Dyslipidemia E78.5 Pericardial effusion with cardiac tamponade I31.3; I31.4 Pericarditis I31.9 Pericarditis type: unspecified type Chronicity: unspecified Pericardial effusion I31.3 Chest pain R07.9 Chest pain type: unspecified CAD (coronary artery disease) I25.110 Associated angina: with unstable angina Coronary Disease-Associated Artery/Lesion type: unspecified vessel or lesion type [place] vs. transplanted heart: [place] heart (1) Pericarditis Pericarditis type: unspecified type Chronicity: unspecified Qualified Code(s): I31.9 - Disease of pericardium, unspecified (2) Chest pain Chest pain type: unspecified Qualified Code(s): R07.9 - Chest pain, unspecified (3) CAD (coronary artery disease) Associated angina: with unstable angina Coronary Disease-Associated Artery/Lesion type: unspecified vessel or lesion type [place] vs. transplanted heart: [place] heart Qualified Code(s): I25.110 - Atherosclerotic heart disease of [place] coronary artery with unstable angina pectoris
[2020-11-05] MEDS: ASPIRIN 81 MG ECTAB PO SCH (20:53)
[2020-11-05] MEDS: METOPROLOL TARTRATE 25 MG TAB PO SCH (20:53)
[2020-11-05] MEDS: ROSUVASTATIN CALCIUM 10 MG TAB PO SCH (20:53)
[2020-11-05] MEDS ORDERED: METOPROLOL TARTRATE 25 MG TAB PO SCH (21:00)
[2020-11-05 21:16] LABS: Thyroid Stimulating Hormone 0.415 uIu/ml (0.300-4.500)
[2020-11-05] MEDS: ACETAMINOPHEN 325 MG TAB PO PRN (21:26)
[2020-11-05 22:21] LABS: BUN Creatinine Ratio 16.6 (10-20); Calcium 8.4 mg/dl (8.5-10.1); Creatinine Clr Calc Pharmacy 107.3 ml/min; Est GFR (African American) 112.5; Potassium 3.8 mmol/L (3.5-5.1)
[2020-11-05] MEDS ORDERED: SODIUM CHLORIDE 0.9% IV ONE (22:33)
[2020-11-05] MEDS ORDERED: DESMOPRESSIN ACETATE IV ONE (22:33)
[2020-11-05] MEDS ORDERED: DESMOPRESSIN ACETATE 4 MCG in SODIUM CHLORIDE 0.9% 50 ML IV ONE (22:59)
[2020-11-05] MEDS: DEXTROSE 5% 1,000 ML IV SCH (23:15)
[2020-11-06 02:16] LABS: Hematocrit (blood only) 31.8 % (42-52); Hemoglobin 10.8 g/dL (14.0-18.0); Mean Corpuscular Hemoglobin 29.3 pg (25-34); Mean Corpuscular Volume 86.2 fL (80-100); Mean Platelet Volume 9.3 fL (7.4-10.4); Platelet Count 375 K/uL (130-400); RDW Standard Deviation 41.6 fL (36.4-46.3); Red Blood Count 3.69 M/uL (4.7-6.1)
[2020-11-06 02:34] LABS: Albumin Level 2.4 gm/dl (3.4-5.0); Calcium 7.9 mg/dl (8.5-10.1); Creatinine Clr Calc Pharmacy 107.3 ml/min; Est GFR (African American) 112.5; Magnesium 2.2 mg/dl (1.8-2.4); Potassium 3.6 mmol/L (3.5-5.1)
[2020-11-06 02:35] LABS: BUN Creatinine Ratio 15.5 (10-20); Calcium 7.9 mg/dl (8.5-10.1); Creatinine Clr Calc Pharmacy 100.8 ml/min; Est GFR (African American) 109.6; Est GFR (Non-African American) 94.6; Potassium 3.6 mmol/L (3.5-5.1)
[2020-11-06 02:40] LABS: Albumin Globulin Ratio 0.7 (0.9-2); Bilirubin,Total 0.6 mg/dl (0.2-1); C Reactive Protein 13.6 mg/dl (0-0.29); Globulin 3.4 gm/dl (2.5-4.0); Total Protein 5.8 gm/dl (6.4-8.2)
[2020-11-06 06:17] LABS: Basophils # (auto) 0.02 K/uL (0-0.2); Basophils % (auto) 0.3 %; Eosinophils # (auto) 0.02 K/uL (0-0.5); Eosinophils % (auto) 0.3 %; Hematocrit (blood only) 32.9 % (42-52); Hemoglobin 11.1 g/dL (14.0-18.0); Immature Granulocytes # (auto) 0.02 K/uL (0.00-0.02); Immature Granulocytes % (auto) 0.3 %; Lymphocytes # (auto) 0.67 K/uL (1.2-3.4); Lymphocytes % (auto) 8.4 %; Mean Corpuscular Hemoglobin 29.1 pg (25-34); Mean Corpuscular Hgb Conc 33.7 g/dL (32-36); Mean Corpuscular Volume 86.1 fL (80-100); Mean Platelet Volume 9.2 fL (7.4-10.4); Monocytes % (auto) 11.3 %; Neutrophils % (auto) 79.4 %; Platelet Count 364 K/uL (130-400); RDW Coefficient of Variation 13.1 % (11.5-14.5); RDW Standard Deviation 41.9 fL (36.4-46.3); Red Blood Count 3.82 M/uL (4.7-6.1); White Blood Count 7.93 K/uL (4.8-10.8)
[2020-11-06 06:41] LABS: BUN Creatinine Ratio 16.4 (10-20); Calcium 7.9 mg/dl (8.5-10.1); Est GFR (African American) 113.2; Est GFR (Non-African American) 97.7; Potassium 3.6 mmol/L (3.5-5.1)
[2020-11-06 06:43] LABS: Magnesium 2.1 mg/dl (1.8-2.4); Phosphorus 2.1 mg/dl (2.5-4.9)
[2020-11-06] MEDS ORDERED: POTASSIUM CHLORIDE CRTAB 20 MEQ TABCR PO STA (07:12)
--- NOTE | 2020-11-06 08:42 | Hospitalist Progress Note ---
Date of Service November 06, 2020 Assessment & Plan (1) Pericardial effusion with cardiac tamponade: This is a 74-year-old male who has significant past medical history of CAD, HTN, HLD and GERD who presents to ED secondary to ill feeling and worsening cardiac symptoms since discharge x3 to 4 days. Patient hospitalized 10/25 and 10/26 secondary to acute pericarditis treated with colchicine and ibuprofen. Readmission secondary to worsening of shortness of breath/potential/tachycardia:-echo showed large pericardial effusion with substantial change from prior study, with evidence of tamponade Status post urgent pericardiocentesis with removal of 800 cc of bloody pericardial effusion. symptomatically much improved after procedure -denies of chest pressure chest heaviness, no shortness of breath or orthopnea. Appreciate input from cardiology, Echo shows a significant reduction in size of precordial effusion, small to moderate amount of residual clotted blood in pericardium. Pericardial drain removed by Dr. Bains today. (2) CAD (coronary artery disease): Leukocytosis/Elevated CRP Possibly pericarditis blood cultures pending, cultures to be obtained from pericardiocentesis CAD HTN hx of stent x 2 04/2019 in [place] hold lisinopril/amlodipine for now in setting of lower BP Aspirin on hold for bloody pericardial effusion. continue metoprolol Hyponatremia : Appears to be chronic as per previous labs. Appreciate input from nephrology, possible culprit could be ibuprofen Profen/NSAID which patient received for pericarditis Follow BMP HLD continue statin Fasting lipid panel ( LDL45, HDL 56, Chol 127, trig 132) 10/25 A1C 5.6 10/25 DVT PPX: SCD/TEDS Disposition: And is admitted to ICU Follow up: PCP [facility] upon discharge along with cardiology follow up Full code Admission and Anticipated Discharge Date Admission Date: November 05, 2020 Subjective Follow up visit for chest pain /SOB /Pericardial effusion with Tamponade : No fevers chills no chest pain no pleuritic discomfort. feels better today shortness of breath has improved markedly after procedure /pericardiocenthesis Review of Systems Review of Systems: All systems reviewed & are unremarkable except as noted in HPI & below Physical Exam Constitutional: WD/WN, vitals as above Eyes: PERRL, conjunctivae normal, anicteric sclerae ENMT: external ear and nose normal, oropharynx normal Neck: trachea midline, no thyromegaly Respiratory: normal respiratory effort, lungs clear to auscultation Cardiovascular: RRR, no murmur, no edema Gastrointestinal (Abdomen): normal bowel sounds, soft, nontender, no hepatosplenomegaly Musculoskeletal: no cyanosis or clubbing, extremities motor strength 5/5 Skin: no rashes, warm and dry Neurologic: PERRL, EOMI, accommodation nl, no face palsy, no dysarthria Psychiatric: A+Ox3, euthymic affect Results & Data Results & Data ([facility]) Vital Signs (Past 12 Hours) Vital Signs Temp Pulse Pulse Resp BP Pulse Ox 11/06/20 06:00 126 H 18 109/77 94 11/06/20 04:00 119 H 20 97/70 L 96 11/06/20 03:00 84 20 92/57 L 91 11/06/20 02:00 120 H 16 107/58 L 92 11/06/20 01:00 123 H 22 90/55 L 92 11/06/20 00:00 124 H 124 H 18 101/55 L 93 11/05/20 23:00 36.7 C 118 H 22 93/56 L 94 11/05/20 22:00 115 H 22 89/59 L 94 (1) CAD (coronary artery disease) Associated angina: with unstable angina Coronary Disease-Associated Artery/Lesion type: unspecified vessel or lesion type [place] vs. transplanted heart: [place] heart Qualified Code(s): I25.110 - Atherosclerotic heart disease of [place] coronary artery with unstable angina pectoris
--- NOTE | 2020-11-06 09:04 | Nephrology Consultation ---
Date of Consultation November 06, 2020 Assessment & Plan (1) Hyponatremia: presented w/ serum sodium 121 11/05/2019 0930, chronicity unknown, so will assume it's chronic, eg > 48 hrs duration. corrects to 123 accounting for glucose; no hyponatremia at september admission; ibuprofen can certainly cause hyponatremia. asymptomatic currently, though malaise, weakness w/ which he presented could theoretically have had sodium component. corrected to 130 by 2100 yesterday, to 129 this am. this however after medication through night to limit rate of correction. no serum osms or urine studies sent. clinically contributing ff include NSAIDS +/- physiologic volume depletion physiology of cardiac tamponade; correcting at appropriate rate. further w/u not indicated and would instead monitor labs frequently, adjust meds to limit rate of correction -slated to get 20 mEq K po x 1 > maintain K 4; recheck bmp pending for 1400 -also just ordered for NS at 125 mL hourly >> while on that would recheck bmp q4h for now -bmp q4h for now appropriate -goal sNa in general for this afternoon/evening remains about 129-130, then mid 130s by tomorrow am -will follow with you Present on Admission?: Yes History of Present Illness Reason for Consultation: hyponatremia Requesting Physician: Dr Cho Attending Physician: Debbie Cho, DO History of Present Illness 74 y/o M whom I'm asked to see for hyponatremia after he was admitted last evening to the ICU s/p urgent pericardiocentesis. Pt had been undergoing tx for acute pericarditis (admitted here ) w/ colchicine and ibuprofen; presented w/ hypotension and tachycardia and tamponade on TTE s/p drainage 800 mL bloody fluid. Presenting sodium 121 yesterday at 0930 w/ BG 176, up to 129 this am. He had a L NS in ER. late last evening also had desmopressin 4 mcg IV; also had 7-8 hrs D5W @125 ml/min. PMH includes CAD s/p stent x 2, HTN, HL, GERD. Pt found by yesterday not arouseable after 3-4 days worsening fatigue, exertional dyspnea and chest pain; pt had been d/c on colchicine and ibuprofen but taking only the latter prior to admission since colchicine caused cramping. started on NS at 125 mL hourly this am about 1045. Pt reports feeling much improved after procedure yesterday; denies chest/drain pain or lightheadedness, malaise; denies sob or orthopnea; no edema; no N; states he had sweats overnight but otherwise feels ok. Allergies Allergy/AdvReac Type Severity Reaction Status Date / Time No Known Allergies Allergy Unverified 11/05/20 09:33 Home Medications Medication Instructions Recorded Confirmed Type amlodipine [Norvasc] 5 mg PO QAM 30 Days #30 tab 10/26/20 11/05/20 Rx aspirin 81 mg PO HS 30 Days #30 tab 10/26/20 11/05/20 Rx colchicine [Colcrys] 0.6 mg PO BID 30 Days #60 tab 10/26/20 11/05/20 Rx lisinopril 10 mg PO QAM 30 Days #30 tab 10/26/20 11/05/20 Rx metoprolol tartrate 25 mg PO BID 30 Days #60 tab 10/26/20 11/05/20 Rx pantoprazole 40 mg PO QAM 30 Days #30 tab 10/26/20 11/05/20 Rx rosuvastatin [Crestor] 10 mg PO HS 30 Days #30 tab 10/26/20 11/05/20 Rx Patient History Medical History (Updated 11/06/20 @ 08:54 by Doreen David MD, PhD) CAD (coronary artery disease) Dyslipidemia, goal LDL below 70 Hypertension Pericardial effusion Pericarditis 09/2020 [facility] Surgical History (Updated 11/06/20 @ 08:54 by Doreen David MD, PhD) H/O heart artery stent S/P coronary artery stent placement S/P pericardiocentesis Nov 05, 2019 [facility] Family History Brother Diabetes Denies family history of Heart disease Social History (Updated 11/05/20 @ 11:48 by Elly Cross PA-C) Smoking Status: Former smoker Hx Alcohol Use: No Hx Substance Use: No Preferred Language: Thai Communication Ability: Effective Supply Chain Manager Required: No Beliefs That Will Affect Care: None Current Living Situation: Spouse Other Information That Helps Us Care for You: No Feels Safe at Home: Yes Safety Concerns: Feels Safe At This Time Assistive Devices: None Review of Systems Review of Systems: All systems reviewed & are unremarkable except as noted in HPI & below Physical Exam Constitutional: well developed and well nourished; no acute distress Eyes: EOM intact bilaterally ENMT: Ears: no external ear abnormality Nose: no external nose abnormality Mouth: oral mucous membranes not dry Neck: no nuchal rigidity Respiratory: normal respiratory effort Auscultation: lungs clear to auscultation bilaterally and + diminished lung sounds Cardiovascular: Rate/Rhythm: + tachycardic (120s) Extremities: no edema Gastrointestinal (Abdomen): Inspection/Auscultation: normal bowel sounds Percussion/Palpation: abdomen soft; abdomen nontender and no guarding Musculoskeletal: Extremities: strength 5/5 throughout Skin: no rashes, warm and dry sternal drain w/ scant SS output Neurologic: perkins, fluent speech, no tremor Psychiatric: A+Ox3, euthymic affect Speech: normal rate/rhythm/volume of speech Results & Data ([facility]) Vital Signs (Past 12 Hours) Vital Signs Temp Pulse Pulse Resp BP Pulse Ox 11/06/20 06:00 126 H 18 109/77 94 11/06/20 04:00 119 H 20 97/70 L 96 11/06/20 03:00 84 20 92/57 L 91 11/06/20 02:00 120 H 16 107/58 L 92 11/06/20 01:00 123 H 22 90/55 L 92 11/06/20 00:00 124 H 124 H 18 101/55 L 93 11/05/20 23:00 36.7 C 118 H 22 93/56 L 94 11/05/20 22:00 115 H 22 89/59 L 94 Laboratory Results 11/06/20 06:03 11/06/20 06:03 Diagnostic Findings cxr yest FINDINGS: The heart remains enlarged. Slightly prominent markings at the left medial lung base remains similar to the prior study and likely represent vessels viewed through the heart shadow. There is no lobar consolidation. There is no failure. There are no pleural effusions.[ IMPRESSION: Cardiomegaly. No acute findings. CT angio chest PE prot 1. No pulmonary emboli identified. 2. Mild cardiomegaly. Trace pericardial effusion. Extensive coronary artery calcification. 3. No thoracic aortic dissection. Ectatic ascending aorta, measuring 4.1 cm 4. Minimal tree-in-bud nodules and groundglass opacities within the lungs. No consolidation. 5. Cholelithiasis. TTE EF 60-65%; markedly increased vol pericard effusion now w/ tamponade physiology
--- NOTE | 2020-11-06 09:06 | Cardiology Progress Note ---
Date of Service November 06, 2020 Assessment & Plan (1) Pericardial effusion with cardiac tamponade: 74-year-old male recently hospitalized with acute pericarditis on 10/25/2020 treated appropriate with colchicine and ibuprofen presented 11/05/2020 with clinical decline increasing diaphoresis malaise and possible episode of nonresponsiveness . Echocardiogram demonstrated large pericardial effusion is a substantial change from prior study.. There was physiologic findings consistent with early tamponade on echocardiography Plan: Patient referred for urgent pericardiocentesis with removal of 800 cc of bloody pericardial effusion. Patient is morning feels well however tachycardic overnight. No fevers or chills no chest pain or pleuritic discomfort cultures and smears from pericardial effusion pending We will give 500 cc IV saline, supplement potassium. Increase beta- sharonda therapy Pericardial catheter to be flushed and possibly remove later today Admission and Anticipated Discharge Date Admission Date: November 05, 2020 Subjective Patient seen and examined, chart, medications, telemetry reviewed. Overall feels well this morning but tachycardic. No dizziness or lightheadedness. Blood pressures are up and down No fevers chills no chest pain no pleuritic discomfort. EKG sinus tachycardia without ST elevation Echocardiogram with thrombus apically small pericardial effusion Physical Exam Constitutional: WD/WN, vitals as above Eyes: PERRL, conjunctivae normal, anicteric sclerae ENMT: external ear and nose normal, oropharynx normal Neck: trachea midline, no thyromegaly Cardiovascular: Rate/Rhythm: regular rhythm and + tachycardic Vessels: no JVD Extremities: no edema Gastrointestinal (Abdomen): normal bowel sounds, soft, nontender, no hepatosplenomegaly Musculoskeletal: no cyanosis or clubbing, extremities motor strength 5/5 Neurologic: PERRL, EOMI, accommodation nl, no face palsy, no dysarthria Psychiatric: A+Ox3, euthymic affect Results & Data ([facility]) Vital Signs (Past 12 Hours) Vital Signs Temp Pulse Pulse Resp BP Pulse Ox 11/06/20 06:00 126 H 18 109/77 94 11/06/20 04:00 119 H 20 97/70 L 96 11/06/20 03:00 84 20 92/57 L 91 11/06/20 02:00 120 H 16 107/58 L 92 11/06/20 01:00 123 H 22 90/55 L 92 11/06/20 00:00 124 H 124 H 18 101/55 L 93 11/05/20 23:00 36.7 C 118 H 22 93/56 L 94 11/05/20 22:00 115 H 22 89/59 L 94 Laboratory Results Laboratory Results - last 24 hr 11/05/20 11/05/20 11/05/20 09:20 09:20 09:20 WBC 17.11 H RBC 3.95 L Hgb 11.7 L Hct 34.2 L MCV 86.6 MCH 29.6 MCHC 34.2 RDW Std Deviation 42.2 RDW Coeff of Margaux 13.2 Plt Count 445 H MPV 9.9 Immature Gran % (Auto) 0.4 Neut % (Auto) 88.7 Lymph % (Auto) 4.3 Ness % (Auto) 6.5 Eos % (Auto) 0.0 Baso % (Auto) 0.1 Neut # (Auto) 15.17 H Lymph # (Auto) 0.74 L Ness # (Auto) 1.12 H Eos # (Auto) 0.00 Baso # (Auto) 0.01 Immature Gran # (Auto) 0.07 H ESR PT 11.4 INR 1.1 APTT 27.4 PTT Ratio 1.0 Sodium 121 L Potassium 3.9 Chloride 88 L Carbon Dioxide 26 Anion Gap 7.0 BUN 12 Creatinine 0.97 Est Cr Clr Drug Dosing 68.6 Est GFR ( Amer) 88.1 Est GFR (Non-Af Amer) 76.1 BUN/Creatinine Ratio 12.2 Glucose 176 H POC Glucose Calcium 8.6 Phosphorus Magnesium Total Bilirubin 1.1 H AST 30 ALT 48 Alkaline Phosphatase 110 Troponin I < 0.015 C-Reactive Protein 13.10 H Total Protein 6.9 Albumin 3.1 L Globulin 3.8 Albumin/Globulin Ratio 0.8 L Lipase 178 Procalcitonin TSH Fluid Neutrophils % Fluid Lymphocytes % Fluid Eosinophils % Fluid Basophils % Fluid Meso/Macro/Ness % Pericard Color Pericard Appearance Pericard WBC Pericard RBC Pericard Total Protein Pericardial LDH Nasal Screen MRSA (PCR) COVID-19 Eval Order SARS-CoV-2 (PCR) Influenza Type A (PCR) Influenza Type B (PCR) RSV (RT-PCR) SARS-CoV-2, RNA, NAAT TB Test (QFT) Gold Plus TB Test (QFT) Nil TB Test Mitogen - Nil TB Test Ag - Nil 1 TB Test Ag - Nil 2 11/05/20 11/05/20 11/05/20 11:00 11:00 11:00 WBC RBC Hgb Hct MCV MCH MCHC RDW Std Deviation RDW Coeff of Margaux Plt Count MPV Immature Gran % (Auto) Neut % (Auto) Lymph % (Auto) Ness % (Auto) Eos % (Auto) Baso % (Auto) Neut # (Auto) Lymph # (Auto) Ness # (Auto) Eos # (Auto) Baso # (Auto) Immature Gran # (Auto) ESR PT INR APTT PTT Ratio Sodium Potassium Chloride Carbon Dioxide Anion Gap BUN Creatinine Est Cr Clr Drug Dosing Est GFR ( Amer) Est GFR (Non-Af Amer) BUN/Creatinine Ratio Glucose POC Glucose Calcium Phosphorus Magnesium Total Bilirubin AST ALT Alkaline Phosphatase Troponin I C-Reactive Protein Total Protein Albumin Globulin Albumin/Globulin Ratio Lipase Procalcitonin TSH Fluid Neutrophils % Fluid Lymphocytes % Fluid Eosinophils % Fluid Basophils % Fluid Meso/Macro/Ness % Pericard Color Pericard Appearance Pericard WBC Pericard RBC Pericard Total Protein Pericardial LDH Nasal Screen MRSA (PCR) COVID-19 Eval [facility] SARS-CoV-2 (PCR) NEGATIVE Influenza Type A (PCR) Negative Influenza Type B (PCR) Negative RSV (RT-PCR) Negative SARS-CoV-2, RNA, NAAT Cancelled TB Test (QFT) Gold Plus TB Test (QFT) Nil TB Test Mitogen - Nil TB Test Ag - Nil 1 TB Test Ag - Nil 2 11/05/20 11/05/20 11/05/20 12:54 12:54 14:39 WBC RBC Hgb Hct MCV MCH MCHC RDW Std Deviation RDW Coeff of Margaux Plt Count MPV Immature Gran % (Auto) Neut % (Auto) Lymph % (Auto) Ness % (Auto) Eos % (Auto) Baso % (Auto) Neut # (Auto) Lymph # (Auto) Ness # (Auto) Eos # (Auto) Baso # (Auto) Immature Gran # (Auto) ESR PT INR APTT PTT Ratio Sodium 125 L Potassium 3.8 Chloride 93 L Carbon Dioxide 26 Anion Gap 6.0 BUN 11 Creatinine 0.77 Est Cr Clr Drug Dosing 86.4 Est GFR ( Amer) 102.9 Est GFR (Non-Af Amer) 88.8 BUN/Creatinine Ratio 14.3 Glucose 128 H POC Glucose Calcium 8.3 L Phosphorus Magnesium Total Bilirubin AST ALT Alkaline Phosphatase Troponin I C-Reactive Protein Total Protein Albumin Globulin Albumin/Globulin Ratio Lipase Procalcitonin TSH 0.415 Fluid Neutrophils % 43 Fluid Lymphocytes % 49 Fluid Eosinophils % 1 Fluid Basophils % 0 Fluid Meso/Macro/Ness % 7 Pericard Color RED Pericard Appearance BLOODY Pericard WBC 4542 Pericard RBC [id number] Pericard Total Protein Pending Pericardial LDH Pending Nasal Screen MRSA (PCR) COVID-19 Eval Order SARS-CoV-2 (PCR) Influenza Type A (PCR) Influenza Type B (PCR) RSV (RT-PCR) SARS-CoV-2, RNA, NAAT TB Test (QFT) Gold Plus TB Test (QFT) Nil TB Test Mitogen - Nil TB Test Ag - Nil 1 TB Test Ag - Nil 2 11/05/20 11/05/20 11/05/20 14:39 14:39 14:39 WBC RBC Hgb Hct MCV MCH MCHC RDW Std Deviation RDW Coeff of Margaux Plt Count MPV Immature Gran % (Auto) Neut % (Auto) Lymph % (Auto) Ness % (Auto) Eos % (Auto) Baso % (Auto) Neut # (Auto) Lymph # (Auto) Ness # (Auto) Eos # (Auto) Baso # (Auto) Immature Gran # (Auto) ESR PT INR APTT PTT Ratio Sodium Potassium Chloride Carbon Dioxide Anion Gap BUN Creatinine Est Cr Clr Drug Dosing Est GFR ( Amer) Est GFR (Non-Af Amer) BUN/Creatinine Ratio Glucose POC Glucose Calcium Phosphorus Magnesium Total Bilirubin AST ALT Alkaline Phosphatase Troponin I C-Reactive Protein Total Protein Albumin Globulin Albumin/Globulin Ratio Lipase Procalcitonin 0.07 TSH Cancelled Fluid Neutrophils % Fluid Lymphocytes % Fluid Eosinophils % Fluid Basophils % Fluid Meso/Macro/Ness % Pericard Color Pericard Appearance Pericard WBC Pericard RBC Pericard Total Protein Pericardial LDH Nasal Screen MRSA (PCR) COVID-19 Eval Order SARS-CoV-2 (PCR) Influenza Type A (PCR) Influenza Type B (PCR) RSV (RT-PCR) SARS-CoV-2, RNA, NAAT TB Test (QFT) Gold Plus Pending TB Test (QFT) Nil Pending TB Test Mitogen - Nil Pending TB Test Ag - Nil 1 Pending TB Test Ag - Nil 2 Pending 11/05/20 11/05/20 11/05/20 17:41 18:06 21:48 WBC RBC Hgb Hct MCV MCH MCHC RDW Std Deviation RDW Coeff of Margaux Plt Count MPV Immature Gran % (Auto) Neut % (Auto) Lymph % (Auto) Ness % (Auto) Eos % (Auto) Baso % (Auto) Neut # (Auto) Lymph # (Auto) Ness # (Auto) Eos # (Auto) Baso # (Auto) Immature Gran # (Auto) ESR PT INR APTT PTT Ratio Sodium 129 L 130 L Potassium 4.1 3.8 Chloride 97 L 99 Carbon Dioxide 25 22 Anion Gap 7.0 9.0 BUN 11 10 Creatinine 0.75 0.62 Est Cr Clr Drug Dosing 88.7 107.3 Est GFR ( Amer) 104.0 112.5 Est GFR (Non-Af Amer) 89.7 97.0 BUN/Creatinine Ratio 14.1 16.6 Glucose 129 H 122 H POC Glucose 132 H Calcium 8.5 8.4 L Phosphorus Magnesium Total Bilirubin AST ALT Alkaline Phosphatase Troponin I C-Reactive Protein Total Protein Albumin Globulin Albumin/Globulin Ratio Lipase Procalcitonin TSH Fluid Neutrophils % Fluid Lymphocytes % Fluid Eosinophils % Fluid Basophils % Fluid Meso/Macro/Ness % Pericard Color Pericard Appearance Pericard WBC Pericard RBC Pericard Total Protein Pericardial LDH Nasal Screen MRSA (PCR) COVID-19 Eval Order SARS-CoV-2 (PCR) Influenza Type A (PCR) Influenza Type B (PCR) RSV (RT-PCR) SARS-CoV-2, RNA, NAAT TB Test (QFT) Gold Plus TB Test (QFT) Nil TB Test Mitogen - Nil TB Test Ag - Nil 1 TB Test Ag - Nil 2 11/05/20 11/06/20 11/06/20 Unknown 00:21 01:50 WBC 8.40 RBC 3.69 L Hgb 10.8 L Hct 31.8 L MCV 86.2 MCH 29.3 MCHC 34.0 RDW Std Deviation 41.6 RDW Coeff of Margaux 13.0 Plt Count 375 MPV 9.3 Immature Gran % (Auto) Neut % (Auto) Lymph % (Auto) Ness % (Auto) Eos % (Auto) Baso % (Auto) Neut # (Auto) Lymph # (Auto) Ness # (Auto) Eos # (Auto) Baso # (Auto) Immature Gran # (Auto) ESR PT INR APTT PTT Ratio Sodium Potassium Chloride Carbon Dioxide Anion Gap BUN Creatinine Est Cr Clr Drug Dosing Est GFR ( Amer) Est GFR (Non-Af Amer) BUN/Creatinine Ratio Glucose POC Glucose 141 H Calcium Phosphorus Magnesium Total Bilirubin AST ALT Alkaline Phosphatase Troponin I C-Reactive Protein Total Protein Albumin Globulin Albumin/Globulin Ratio Lipase Procalcitonin TSH Fluid Neutrophils % Fluid Lymphocytes % Fluid Eosinophils % Fluid Basophils % Fluid Meso/Macro/Ness % Pericard Color Pericard Appearance Pericard WBC Pericard RBC Pericard Total Protein Pericardial LDH Nasal Screen MRSA (PCR) Negative COVID-19 Eval Order SARS-CoV-2 (PCR) Influenza Type A (PCR) Influenza Type B (PCR) RSV (RT-PCR) SARS-CoV-2, RNA, NAAT TB Test (QFT) Gold Plus TB Test (QFT) Nil TB Test Mitogen - Nil TB Test Ag - Nil 1 TB Test Ag - Nil 2 11/06/20 11/06/20 11/06/20 01:50 01:50 01:50 WBC RBC Hgb Hct MCV MCH MCHC RDW Std Deviation RDW Coeff of Margaux Plt Count MPV Immature Gran % (Auto) Neut % (Auto) Lymph % (Auto) Ness % (Auto) Eos % (Auto) Baso % (Auto) Neut # (Auto) Lymph # (Auto) Ness # (Auto) Eos # (Auto) Baso # (Auto) Immature Gran # (Auto) ESR 39 H PT INR APTT PTT Ratio Sodium 130 L 130 L Potassium 3.6 3.6 Chloride 100 100 Carbon Dioxide 28 24 Anion Gap 2.0 L 6.0 BUN 10 10 Creatinine 0.62 0.66 Est Cr Clr Drug Dosing 107.3 100.8 Est GFR ( Amer) 112.5 109.6 Est GFR (Non-Af Amer) 97.0 94.6 BUN/Creatinine Ratio 17.0 15.5 Glucose 138 H 141 H POC Glucose Calcium 7.9 L 7.9 L Phosphorus Magnesium 2.2 Total Bilirubin 0.6 D AST 36 ALT 43 Alkaline Phosphatase 87 Troponin I C-Reactive Protein 13.60 H Total Protein 5.8 L Albumin 2.4 L Globulin 3.4 Albumin/Globulin Ratio 0.7 L Lipase Procalcitonin TSH Fluid Neutrophils % Fluid Lymphocytes % Fluid Eosinophils % Fluid Basophils % Fluid Meso/Macro/Ness % Pericard Color Pericard Appearance Pericard WBC Pericard RBC Pericard Total Protein Pericardial LDH Nasal Screen MRSA (PCR) COVID-19 Eval Order SARS-CoV-2 (PCR) Influenza Type A (PCR) Influenza Type B (PCR) RSV (RT-PCR) SARS-CoV-2, RNA, NAAT TB Test (QFT) Gold Plus TB Test (QFT) Nil TB Test Mitogen - Nil TB Test Ag - Nil 1 TB Test Ag - Nil 2 11/06/20 11/06/20 11/06/20 06:03 06:03 06:03 WBC 7.93 RBC 3.82 L Hgb 11.1 L Hct 32.9 L MCV 86.1 MCH 29.1 MCHC 33.7 RDW Std Deviation 41.9 RDW Coeff of Margaux 13.1 Plt Count 364 MPV 9.2 Immature Gran % (Auto) 0.3 Neut % (Auto) 79.4 Lymph % (Auto) 8.4 Ness % (Auto) 11.3 Eos % (Auto) 0.3 Baso % (Auto) 0.3 Neut # (Auto) 6.30 Lymph # (Auto) 0.67 L Ness # (Auto) 0.90 H Eos # (Auto) 0.02 Baso # (Auto) 0.02 Immature Gran # (Auto) 0.02 ESR PT INR APTT PTT Ratio Sodium 129 L Potassium 3.6 Chloride 98 Carbon Dioxide 27 Anion Gap 4.0 BUN 10 Creatinine 0.61 Est Cr Clr Drug Dosing 109.0 Est GFR ( Amer) 113.2 Est GFR (Non-Af Amer) 97.7 BUN/Creatinine Ratio 16.4 Glucose 144 H POC Glucose Calcium 7.9 L Phosphorus 2.1 L Magnesium 2.1 Total Bilirubin AST ALT Alkaline Phosphatase Troponin I C-Reactive Protein Total Protein Albumin Globulin Albumin/Globulin Ratio Lipase Procalcitonin TSH Fluid Neutrophils % Fluid Lymphocytes % Fluid Eosinophils % Fluid Basophils % Fluid Meso/Macro/Ness % Pericard Color Pericard Appearance Pericard WBC Pericard RBC Pericard Total Protein Pericardial LDH Nasal Screen MRSA (PCR) COVID-19 Eval Order SARS-CoV-2 (PCR) Influenza Type A (PCR) Influenza Type B (PCR) RSV (RT-PCR) SARS-CoV-2, RNA, NAAT TB Test (QFT) Gold Plus TB Test (QFT) Nil TB Test Mitogen - Nil TB Test Ag - Nil 1 TB Test Ag - Nil 2 11/06/20 06:59 WBC RBC Hgb Hct MCV MCH MCHC RDW Std Deviation RDW Coeff of Margaux Plt Count MPV Immature Gran % (Auto) Neut % (Auto) Lymph % (Auto) Ness % (Auto) Eos % (Auto) Baso % (Auto) Neut # (Auto) Lymph # (Auto) Ness # (Auto) Eos # (Auto) Baso # (Auto) Immature Gran # (Auto) ESR PT INR APTT PTT Ratio Sodium Potassium Chloride Carbon Dioxide Anion Gap BUN Creatinine Est Cr Clr Drug Dosing Est GFR ( Amer) Est GFR (Non-Af Amer) BUN/Creatinine Ratio Glucose POC Glucose 157 H Calcium Phosphorus Magnesium Total Bilirubin AST ALT Alkaline Phosphatase Troponin I C-Reactive Protein Total Protein Albumin Globulin Albumin/Globulin Ratio Lipase Procalcitonin TSH Fluid Neutrophils % Fluid Lymphocytes % Fluid Eosinophils % Fluid Basophils % Fluid Meso/Macro/Ness % Pericard Color Pericard Appearance Pericard WBC Pericard RBC Pericard Total Protein Pericardial LDH Nasal Screen MRSA (PCR) COVID-19 Eval Order SARS-CoV-2 (PCR) Influenza Type A (PCR) Influenza Type B (PCR) RSV (RT-PCR) SARS-CoV-2, RNA, NAAT TB Test (QFT) Gold Plus TB Test (QFT) Nil TB Test Mitogen - Nil TB Test Ag - Nil 1 TB Test Ag - Nil 2
[2020-11-06] MEDS ORDERED: SODIUM CHLORIDE 0.9% 500 ML IV SCH (09:15)
--- NOTE | 2020-11-06 09:16 | Critical Care Progress Note ---
Date of Service November 06, 2020 Assessment & Plan (1) Admitted to intensive care unit: Impression: 74-year-old male admitted to the ICU following pericardial effusion with tamponade status post pericardial drain currently set to suction. 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 EF 65 to 70%. -S/p pericardial drain with 800 mL of grossly bloody fluid removed, pericardial drain left in place and placed at suction per cardiology management -We will follow cardiology recommendations in regards to drain removal -Refer to cardiology regarding continuation of colchicine and ibuprofen recommendation Tachycardiapatient remains mildly tachycardic. Blood pressure normotensive CAD/ HLDhistory of coronary event in [place] in 2019 with stentx2 -Metoprolol added per cardiology Respiratory - No history of pulmonary disease, maintaining sats on room air Continuous monitor on pulse ox GI - Heart healthy diet GERDProtonix p.o. RENAL/LYTES - Creatinine within normal limits, monitor routine BMPs and replete electrolytes as indicated Hyponatremia-reviewed nephrology notes - Strict I's and O's ENDO - No history of diabetes or thyroid disease, ICU hyperglycemic protocol HEME - H&H within normal limits, monitor drain output as patient did have 800 mL ID - No indication for infectious process at this time. Pericardial fluid not purulent, will follow cultures LINES/IV ACCESS - PIV's DVT PROPHYLAXIS - SCDs, hold anticoagulants for now as patient with gross bloody drainage w/ pericardial drain in place Critical care services largely not needed critical care will sign off at this time (2) Dyslipidemia: (3) Pericardial effusion with cardiac tamponade: (4) Pericarditis: (5) Pericardial effusion: (6) Chest pain: (7) CAD (coronary artery disease): Admission and Anticipated Discharge Date Admission Date: November 05, 2020 Subjective No significant complaints, denies need for any services Physical Exam Physical Exam: General: Alert. nontoxic. Skin: Warm, dry, Head: Atraumatic Ears, nose, mouth and throat: airway patent Cardiovascular: Normal peripheral perfusion drain has serous fluid in it minimal amount Respiratory: no respiratory distress Gastrointestinal: Non distended Musculoskeletal: No deformity Results & Data Results & Data ([facility]) Vital Signs (Past 12 Hours) Vital Signs Temp Pulse Pulse Resp BP Pulse Ox 11/06/20 06:00 126 H 18 109/77 94 11/06/20 04:00 119 H 20 97/70 L 96 11/06/20 03:00 84 20 92/57 L 91 11/06/20 02:00 120 H 16 107/58 L 92 11/06/20 01:00 123 H 22 90/55 L 92 11/06/20 00:00 124 H 124 H 18 101/55 L 93 11/05/20 23:00 36.7 C 118 H 22 93/56 L 94 11/05/20 22:00 115 H 22 89/59 L 94 Laboratory Results 11/06/20 11/06/20 11/06/20 Range/Units 06:59 06:03 06:03 WBC 7.93 (4.8-10.8) K/uL RBC 3.82 L (4.7-6.1) M/uL Hgb 11.1 L (14.0-18.0) g/dL Hct 32.9 L (42-52) % MCV 86.1 (80-100) fL MCH 29.1 (25-34) pg MCHC 33.7 (32-36) g/dL RDW Std Deviation 41.9 (36.4-46.3) fL RDW Coeff of Margaux 13.1 (11.5-14.5) % Plt Count 364 (130-400) K/uL MPV 9.2 (7.4-10.4) fL Immature Gran % (Auto) 0.3 % Neut % (Auto) 79.4 % Lymph % (Auto) 8.4 % [place] % (Auto) 11.3 % Eos % (Auto) 0.3 % Baso % (Auto) 0.3 % Neut # (Auto) 6.30 (1.4-6.5) K/uL Lymph # (Auto) 0.67 L (1.2-3.4) K/uL [place] # (Auto) 0.90 H (0.11-0.59) K/uL Eos # (Auto) 0.02 (0-0.5) K/uL Baso # (Auto) 0.02 (0-0.2) K/uL Immature Gran # (Auto) 0.02 (0.00-0.02) K/uL ESR (0-14) mm/hr PT (9.0-12.0) Seconds INR (0.9-1.1) APTT (21.0-31.0) Seconds PTT Ratio Sodium (136-145) mmol/L Potassium (3.5-5.1) mmol/L Chloride (98-107) mmol/L Carbon Dioxide (21-32) mmol/L Anion Gap (3-11) BUN (7-18) mg/dl Creatinine (0.6-1.4) mg/dl Est Cr Clr Drug Dosing ml/min Est GFR ( Amer) Est GFR (Non-Af Amer) BUN/Creatinine Ratio (10-20) Glucose (70-99) mg/dl POC Glucose 157 H (70-99) mg/dl Calcium (8.5-10.1) mg/dl Phosphorus 2.1 L (2.5-4.9) mg/dl Magnesium 2.1 (1.8-2.4) mg/dl Total Bilirubin (0.2-1) mg/dl AST (15-37) U/L ALT (12-78) U/L Alkaline Phosphatase (45-117) U/L Troponin I (0-0.045) ng/ml C-Reactive Protein (0-0.29) mg/dl Total Protein (6.4-8.2) gm/dl Albumin (3.4-5.0) gm/dl Globulin (2.5-4.0) gm/dl Albumin/Globulin Ratio (0.9-2) Lipase (73-393) U/L Procalcitonin (0-0.5) ng/ml TSH (0.300-4.500) uIu/ml Fluid Neutrophils % % Fluid Lymphocytes % % Fluid Eosinophils % % Fluid Basophils % % Fluid Meso/Macro/[place] % % Pericard Color Pericard Appearance Pericard WBC /ul Pericard RBC /uL Pericard Total Protein Pericardial LDH Nasal Screen MRSA (PCR) (Negative) COVID-19 Eval Order SARS-CoV-2 (PCR) (Negative) Influenza Type A (PCR) (Neg) Influenza Type B (PCR) (Neg) RSV (RT-PCR) (Neg) SARS-CoV-2, RNA, NAAT TB Test (QFT) Gold Plus TB Test (QFT) Nil TB Test Mitogen - Nil TB Test Ag - Nil 1 TB Test Ag - Nil 2 11/06/20 11/06/20 11/06/20 Range/Units 06:03 01:50 01:50 WBC (4.8-10.8) K/uL RBC (4.7-6.1) M/uL Hgb (14.0-18.0) g/dL Hct (42-52) % MCV (80-100) fL MCH (25-34) pg MCHC (32-36) g/dL RDW Std Deviation (36.4-46.3) fL RDW Coeff of Margaux (11.5-14.5) % Plt Count (130-400) K/uL MPV (7.4-10.4) fL Immature Gran % (Auto) % Neut % (Auto) % Lymph % (Auto) % [place] % (Auto) % Eos % (Auto) % Baso % (Auto) % Neut # (Auto) (1.4-6.5) K/uL Lymph # (Auto) (1.2-3.4) K/uL [place] # (Auto) (0.11-0.59) K/uL Eos # (Auto) (0-0.5) K/uL Baso # (Auto) (0-0.2) K/uL Immature Gran # (Auto) (0.00-0.02) K/uL ESR (0-14) mm/hr PT (9.0-12.0) Seconds INR (0.9-1.1) APTT (21.0-31.0) Seconds PTT Ratio Sodium 129 L 130 L 130 L (136-145) mmol/L Potassium 3.6 3.6 3.6 (3.5-5.1) mmol/L Chloride 98 100 100 (98-107) mmol/L Carbon Dioxide 27 24 28 (21-32) mmol/L Anion Gap 4.0 6.0 2.0 L (3-11) BUN 10 10 10 (7-18) mg/dl Creatinine 0.61 0.66 0.62 (0.6-1.4) mg/dl Est Cr Clr Drug Dosing 109.0 100.8 107.3 ml/min Est GFR ( Amer) 113.2 109.6 112.5 Est GFR (Non-Af Amer) 97.7 94.6 97.0 BUN/Creatinine Ratio 16.4 15.5 17.0 (10-20) Glucose 144 H 141 H 138 H (70-99) mg/dl POC Glucose (70-99) mg/dl Calcium 7.9 L 7.9 L 7.9 L (8.5-10.1) mg/dl Phosphorus (2.5-4.9) mg/dl Magnesium 2.2 (1.8-2.4) mg/dl Total Bilirubin 0.6 D (0.2-1) mg/dl AST 36 (15-37) U/L ALT 43 (12-78) U/L Alkaline Phosphatase 87 (45-117) U/L Troponin I (0-0.045) ng/ml C-Reactive Protein 13.60 H (0-0.29) mg/dl Total Protein 5.8 L (6.4-8.2) gm/dl Albumin 2.4 L (3.4-5.0) gm/dl Globulin 3.4 (2.5-4.0) gm/dl Albumin/Globulin Ratio 0.7 L (0.9-2) Lipase (73-393) U/L Procalcitonin (0-0.5) ng/ml TSH (0.300-4.500) uIu/ml Fluid Neutrophils % % Fluid Lymphocytes % % Fluid Eosinophils % % Fluid Basophils % % Fluid Meso/Macro/[place] % % Pericard Color Pericard Appearance Pericard WBC /ul Pericard RBC /uL Pericard Total Protein Pericardial LDH Nasal Screen MRSA (PCR) (Negative) COVID-19 Eval Order SARS-CoV-2 (PCR) (Negative) Influenza Type A (PCR) (Neg) Influenza Type B (PCR) (Neg) RSV (RT-PCR) (Neg) SARS-CoV-2, RNA, NAAT TB Test (QFT) Gold Plus TB Test (QFT) Nil TB Test Mitogen - Nil TB Test Ag - Nil 1 TB Test Ag - Nil 2 11/06/20 11/06/20 11/06/20 Range/Units 01:50 01:50 00:21 WBC 8.40 (4.8-10.8) K/uL RBC 3.69 L (4.7-6.1) M/uL Hgb 10.8 L (14.0-18.0) g/dL Hct 31.8 L (42-52) % MCV 86.2 (80-100) fL MCH 29.3 (25-34) pg MCHC 34.0 (32-36) g/dL RDW Std Deviation 41.6 (36.4-46.3) fL RDW Coeff of Margaux 13.0 (11.5-14.5) % Plt Count 375 (130-400) K/uL MPV 9.3 (7.4-10.4) fL Immature Gran % (Auto) % Neut % (Auto) % Lymph % (Auto) % [place] % (Auto) % Eos % (Auto) % Baso % (Auto) % Neut # (Auto) (1.4-6.5) K/uL Lymph # (Auto) (1.2-3.4) K/uL [place] # (Auto) (0.11-0.59) K/uL Eos # (Auto) (0-0.5) K/uL Baso # (Auto) (0-0.2) K/uL Immature Gran # (Auto) (0.00-0.02) K/uL ESR 39 H (0-14) mm/hr PT (9.0-12.0) Seconds INR (0.9-1.1) APTT (21.0-31.0) Seconds PTT Ratio Sodium (136-145) mmol/L Potassium (3.5-5.1) mmol/L Chloride (98-107) mmol/L Carbon Dioxide (21-32) mmol/L Anion Gap (3-11) BUN (7-18) mg/dl Creatinine (0.6-1.4) mg/dl Est Cr Clr Drug Dosing ml/min Est GFR ( Amer) Est GFR (Non-Af Amer) BUN/Creatinine Ratio (10-20) Glucose (70-99) mg/dl POC Glucose 141 H (70-99) mg/dl Calcium (8.5-10.1) mg/dl Phosphorus (2.5-4.9) mg/dl Magnesium (1.8-2.4) mg/dl Total Bilirubin (0.2-1) mg/dl AST (15-37) U/L ALT (12-78) U/L Alkaline Phosphatase (45-117) U/L Troponin I (0-0.045) ng/ml C-Reactive Protein (0-0.29) mg/dl Total Protein (6.4-8.2) gm/dl Albumin (3.4-5.0) gm/dl Globulin (2.5-4.0) gm/dl Albumin/Globulin Ratio (0.9-2) Lipase (73-393) U/L Procalcitonin (0-0.5) ng/ml TSH (0.300-4.500) uIu/ml Fluid Neutrophils % % Fluid Lymphocytes % % Fluid Eosinophils % % Fluid Basophils % % Fluid Meso/Macro/[place] % % Pericard Color Pericard Appearance Pericard WBC /ul Pericard RBC /uL Pericard Total Protein Pericardial LDH Nasal Screen MRSA (PCR) (Negative) COVID-19 Eval Order SARS-CoV-2 (PCR) (Negative) Influenza Type A (PCR) (Neg) Influenza Type B (PCR) (Neg) RSV (RT-PCR) (Neg) SARS-CoV-2, RNA, NAAT TB Test (QFT) Gold Plus TB Test (QFT) Nil TB Test Mitogen - Nil TB Test Ag - Nil 1 TB Test Ag - Nil 2 11/05/20 11/05/20 11/05/20 Range/Units Unknown 21:48 18:06 WBC (4.8-10.8) K/uL RBC (4.7-6.1) M/uL Hgb (14.0-18.0) g/dL Hct (42-52) % MCV (80-100) fL MCH (25-34) pg MCHC (32-36) g/dL RDW Std Deviation (36.4-46.3) fL RDW Coeff of Margaux (11.5-14.5) % Plt Count (130-400) K/uL MPV (7.4-10.4) fL Immature Gran % (Auto) % Neut % (Auto) % Lymph % (Auto) % [place] % (Auto) % Eos % (Auto) % Baso % (Auto) % Neut # (Auto) (1.4-6.5) K/uL Lymph # (Auto) (1.2-3.4) K/uL [place] # (Auto) (0.11-0.59) K/uL Eos # (Auto) (0-0.5) K/uL Baso # (Auto) (0-0.2) K/uL Immature Gran # (Auto) (0.00-0.02) K/uL ESR (0-14) mm/hr PT (9.0-12.0) Seconds INR (0.9-1.1) APTT (21.0-31.0) Seconds PTT Ratio Sodium 130 L 129 L (136-145) mmol/L Potassium 3.8 4.1 (3.5-5.1) mmol/L Chloride 99 97 L (98-107) mmol/L Carbon Dioxide 22 25 (21-32) mmol/L Anion Gap 9.0 7.0 (3-11) BUN 10 11 (7-18) mg/dl Creatinine 0.62 0.75 (0.6-1.4) mg/dl Est Cr Clr Drug Dosing 107.3 88.7 ml/min Est GFR ( Amer) 112.5 104.0 Est GFR (Non-Af Amer) 97.0 89.7 BUN/Creatinine Ratio 16.6 14.1 (10-20) Glucose 122 H 129 H (70-99) mg/dl POC Glucose (70-99) mg/dl Calcium 8.4 L 8.5 (8.5-10.1) mg/dl Phosphorus (2.5-4.9) mg/dl Magnesium (1.8-2.4) mg/dl Total Bilirubin (0.2-1) mg/dl AST (15-37) U/L ALT (12-78) U/L Alkaline Phosphatase (45-117) U/L Troponin I (0-0.045) ng/ml C-Reactive Protein (0-0.29) mg/dl Total Protein (6.4-8.2) gm/dl Albumin (3.4-5.0) gm/dl Globulin (2.5-4.0) gm/dl Albumin/Globulin Ratio (0.9-2) Lipase (73-393) U/L Procalcitonin (0-0.5) ng/ml TSH (0.300-4.500) uIu/ml Fluid Neutrophils % % Fluid Lymphocytes % % Fluid Eosinophils % % Fluid Basophils % % Fluid Meso/Macro/[place] % % Pericard Color Pericard Appearance Pericard WBC /ul Pericard RBC /uL Pericard Total Protein Pericardial LDH Nasal Screen MRSA (PCR) Negative (Negative) COVID-19 Eval Order SARS-CoV-2 (PCR) (Negative) Influenza Type A (PCR) (Neg) Influenza Type B (PCR) (Neg) RSV (RT-PCR) (Neg) SARS-CoV-2, RNA, NAAT TB Test (QFT) Gold Plus TB Test (QFT) Nil TB Test Mitogen - Nil TB Test Ag - Nil 1 TB Test Ag - Nil 2 11/05/20 11/05/20 11/05/20 Range/Units 17:41 14:39 14:39 WBC (4.8-10.8) K/uL RBC (4.7-6.1) M/uL Hgb (14.0-18.0) g/dL Hct (42-52) % MCV (80-100) fL MCH (25-34) pg MCHC (32-36) g/dL RDW Std Deviation (36.4-46.3) fL RDW Coeff of Margaux (11.5-14.5) % Plt Count (130-400) K/uL MPV (7.4-10.4) fL Immature Gran % (Auto) % Neut % (Auto) % Lymph % (Auto) % [place] % (Auto) % Eos % (Auto) % Baso % (Auto) % Neut # (Auto) (1.4-6.5) K/uL Lymph # (Auto) (1.2-3.4) K/uL [place] # (Auto) (0.11-0.59) K/uL Eos # (Auto) (0-0.5) K/uL Baso # (Auto) (0-0.2) K/uL Immature Gran # (Auto) (0.00-0.02) K/uL ESR (0-14) mm/hr PT (9.0-12.0) Seconds INR (0.9-1.1) APTT (21.0-31.0) Seconds PTT Ratio Sodium (136-145) mmol/L Potassium (3.5-5.1) mmol/L Chloride (98-107) mmol/L Carbon Dioxide (21-32) mmol/L Anion Gap (3-11) BUN (7-18) mg/dl Creatinine (0.6-1.4) mg/dl Est Cr Clr Drug Dosing ml/min Est GFR ( Amer) Est GFR (Non-Af Amer) BUN/Creatinine Ratio (10-20) Glucose (70-99) mg/dl POC Glucose 132 H (70-99) mg/dl Calcium (8.5-10.1) mg/dl Phosphorus (2.5-4.9) mg/dl Magnesium (1.8-2.4) mg/dl Total Bilirubin (0.2-1) mg/dl AST (15-37) U/L ALT (12-78) U/L Alkaline Phosphatase (45-117) U/L Troponin I (0-0.045) ng/ml C-Reactive Protein (0-0.29) mg/dl Total Protein (6.4-8.2) gm/dl Albumin (3.4-5.0) gm/dl Globulin (2.5-4.0) gm/dl Albumin/Globulin Ratio (0.9-2) Lipase (73-393) U/L Procalcitonin 0.07 (0-0.5) ng/ml TSH (0.300-4.500) uIu/ml Fluid Neutrophils % % Fluid Lymphocytes % % Fluid Eosinophils % % Fluid Basophils % % Fluid Meso/Macro/[place] % % Pericard Color Pericard Appearance Pericard WBC /ul Pericard RBC /uL Pericard Total Protein Pericardial LDH Nasal Screen MRSA (PCR) (Negative) COVID-19 Eval Order SARS-CoV-2 (PCR) (Negative) Influenza Type A (PCR) (Neg) Influenza Type B (PCR) (Neg) RSV (RT-PCR) (Neg) SARS-CoV-2, RNA, NAAT TB Test (QFT) Gold Plus Pending TB Test (QFT) Nil Pending TB Test Mitogen - Nil Pending TB Test Ag - Nil 1 Pending TB Test Ag - Nil 2 Pending 11/05/20 11/05/20 11/05/20 Range/Units 14:39 14:39 12:54 WBC (4.8-10.8) K/uL RBC (4.7-6.1) M/uL Hgb (14.0-18.0) g/dL Hct (42-52) % MCV (80-100) fL MCH (25-34) pg MCHC (32-36) g/dL RDW Std Deviation (36.4-46.3) fL RDW Coeff of Amrgaux (11.5-14.5) % Plt Count (130-400) K/uL MPV (7.4-10.4) fL Immature Gran % (Auto) % Neut % (Auto) % Lymph % (Auto) % [place] % (Auto) % Eos % (Auto) % Baso % (Auto) % Neut # (Auto) (1.4-6.5) K/uL Lymph # (Auto) (1.2-3.4) K/uL [place] # (Auto) (0.11-0.59) K/uL Eos # (Auto) (0-0.5) K/uL Baso # (Auto) (0-0.2) K/uL Immature Gran # (Auto) (0.00-0.02) K/uL ESR (0-14) mm/hr PT (9.0-12.0) Seconds INR (0.9-1.1) APTT (21.0-31.0) Seconds PTT Ratio Sodium 125 L (136-145) mmol/L Potassium 3.8 (3.5-5.1) mmol/L Chloride 93 L (98-107) mmol/L Carbon Dioxide 26 (21-32) mmol/L Anion Gap 6.0 (3-11) BUN 11 (7-18) mg/dl Creatinine 0.77 (0.6-1.4) mg/dl Est Cr Clr Drug Dosing 86.4 ml/min Est GFR ( Amer) 102.9 Est GFR (Non-Af Amer) 88.8 BUN/Creatinine Ratio 14.3 (10-20) Glucose 128 H (70-99) mg/dl POC Glucose (70-99) mg/dl Calcium 8.3 L (8.5-10.1) mg/dl Phosphorus (2.5-4.9) mg/dl Magnesium (1.8-2.4) mg/dl Total Bilirubin (0.2-1) mg/dl AST (15-37) U/L ALT (12-78) U/L Alkaline Phosphatase (45-117) U/L Troponin I (0-0.045) ng/ml C-Reactive Protein (0-0.29) mg/dl Total Protein (6.4-8.2) gm/dl Albumin (3.4-5.0) gm/dl Globulin (2.5-4.0) gm/dl Albumin/Globulin Ratio (0.9-2) Lipase (73-393) U/L Procalcitonin (0-0.5) ng/ml TSH Cancelled 0.415 (0.300-4.500) uIu/ml Fluid Neutrophils % 43 % Fluid Lymphocytes % 49 % Fluid Eosinophils % 1 % Fluid Basophils % 0 % Fluid Meso/Macro/[place] % 7 % Pericard Color RED Pericard Appearance BLOODY Pericard WBC 4542 /ul Pericard RBC 953619 /uL Pericard Total Protein Pericardial LDH Nasal Screen MRSA (PCR) (Negative) COVID-19 Eval Order SARS-CoV-2 (PCR) (Negative) Influenza Type A (PCR) (Neg) Influenza Type B (PCR) (Neg) RSV (RT-PCR) (Neg) SARS-CoV-2, RNA, NAAT TB Test (QFT) Gold Plus TB Test (QFT) Nil TB Test Mitogen - Nil TB Test Ag - Nil 1 TB Test Ag - Nil 2 11/05/20 11/05/20 11/05/20 Range/Units 12:54 11:00 11:00 WBC (4.8-10.8) K/uL RBC (4.7-6.1) M/uL Hgb (14.0-18.0) g/dL Hct (42-52) % MCV (80-100) fL MCH (25-34) pg MCHC (32-36) g/dL RDW Std Deviation (36.4-46.3) fL RDW Coeff of Margaux (11.5-14.5) % Plt Count (130-400) K/uL MPV (7.4-10.4) fL Immature Gran % (Auto) % Neut % (Auto) % Lymph % (Auto) % [place] % (Auto) % Eos % (Auto) % Baso % (Auto) % Neut # (Auto) (1.4-6.5) K/uL Lymph # (Auto) (1.2-3.4) K/uL [place] # (Auto) (0.11-0.59) K/uL Eos # (Auto) (0-0.5) K/uL Baso # (Auto) (0-0.2) K/uL Immature Gran # (Auto) (0.00-0.02) K/uL ESR (0-14) mm/hr PT (9.0-12.0) Seconds INR (0.9-1.1) APTT (21.0-31.0) Seconds PTT Ratio Sodium (136-145) mmol/L Potassium (3.5-5.1) mmol/L Chloride (98-107) mmol/L Carbon Dioxide (21-32) mmol/L Anion Gap (3-11) BUN (7-18) mg/dl Creatinine (0.6-1.4) mg/dl Est Cr Clr Drug Dosing ml/min Est GFR ( Amer) Est GFR (Non-Af Amer) BUN/Creatinine Ratio (10-20) Glucose (70-99) mg/dl POC Glucose (70-99) mg/dl Calcium (8.5-10.1) mg/dl Phosphorus (2.5-4.9) mg/dl Magnesium (1.8-2.4) mg/dl Total Bilirubin (0.2-1) mg/dl AST (15-37) U/L ALT (12-78) U/L Alkaline Phosphatase (45-117) U/L Troponin I (0-0.045) ng/ml C-Reactive Protein (0-0.29) mg/dl Total Protein (6.4-8.2) gm/dl Albumin (3.4-5.0) gm/dl Globulin (2.5-4.0) gm/dl Albumin/Globulin Ratio (0.9-2) Lipase (73-393) U/L Procalcitonin (0-0.5) ng/ml TSH (0.300-4.500) uIu/ml Fluid Neutrophils % % Fluid Lymphocytes % % Fluid Eosinophils % % Fluid Basophils % % Fluid Meso/Macro/[place] % % Pericard Color Pericard Appearance Pericard WBC /ul Pericard RBC /uL Pericard Total Protein Pending Pericardial LDH Pending Nasal Screen MRSA (PCR) (Negative) COVID-19 Eval Order SARS-CoV-2 (PCR) NEGATIVE (Negative) Influenza Type A (PCR) Negative (Neg) Influenza Type B (PCR) Negative (Neg) RSV (RT-PCR) Negative (Neg) SARS-CoV-2, RNA, NAAT Cancelled TB Test (QFT) Gold Plus TB Test (QFT) Nil TB Test Mitogen - Nil TB Test Ag - Nil 1 TB Test Ag - Nil 2 11/05/20 11/05/20 11/05/20 Range/Units 11:00 09:20 09:20 WBC (4.8-10.8) K/uL RBC (4.7-6.1) M/uL Hgb (14.0-18.0) g/dL Hct (42-52) % MCV (80-100) fL MCH (25-34) pg MCHC (32-36) g/dL RDW Std Deviation (36.4-46.3) fL RDW Coeff of Margaux (11.5-14.5) % Plt Count (130-400) K/uL MPV (7.4-10.4) fL Immature Gran % (Auto) % Neut % (Auto) % Lymph % (Auto) % [place] % (Auto) % Eos % (Auto) % Baso % (Auto) % Neut # (Auto) (1.4-6.5) K/uL Lymph # (Auto) (1.2-3.4) K/uL [place] # (Auto) (0.11-0.59) K/uL Eos # (Auto) (0-0.5) K/uL Baso # (Auto) (0-0.2) K/uL Immature Gran # (Auto) (0.00-0.02) K/uL ESR (0-14) mm/hr PT 11.4 (9.0-12.0) Seconds INR 1.1 (0.9-1.1) APTT 27.4 (21.0-31.0) Seconds PTT Ratio 1.0 Sodium 121 L (136-145) mmol/L Potassium 3.9 (3.5-5.1) mmol/L Chloride 88 L (98-107) mmol/L Carbon Dioxide 26 (21-32) mmol/L Anion Gap 7.0 (3-11) BUN 12 (7-18) mg/dl Creatinine 0.97 (0.6-1.4) mg/dl Est Cr Clr Drug Dosing 68.6 ml/min Est GFR ( Amer) 88.1 Est GFR (Non-Af Amer) 76.1 BUN/Creatinine Ratio 12.2 (10-20) Glucose 176 H (70-99) mg/dl POC Glucose (70-99) mg/dl Calcium 8.6 (8.5-10.1) mg/dl Phosphorus (2.5-4.9) mg/dl Magnesium (1.8-2.4) mg/dl Total Bilirubin 1.1 H (0.2-1) mg/dl AST 30 (15-37) U/L ALT 48 (12-78) U/L Alkaline Phosphatase 110 (45-117) U/L Troponin I < 0.015 (0-0.045) ng/ml C-Reactive Protein 13.10 H (0-0.29) mg/dl Total Protein 6.9 (6.4-8.2) gm/dl Albumin 3.1 L (3.4-5.0) gm/dl Globulin 3.8 (2.5-4.0) gm/dl Albumin/Globulin Ratio 0.8 L (0.9-2) Lipase 178 (73-393) U/L Procalcitonin (0-0.5) ng/ml TSH (0.300-4.500) uIu/ml Fluid Neutrophils % % Fluid Lymphocytes % % Fluid Eosinophils % % Fluid Basophils % % Fluid Mes[place]/Macro/[place] % % Pericard Color Pericard Appearance Per[place]ard WBC /ul [place] RBC /uL [place] Total Protein Pericardial LDH Nasal Screen MRSA (PCR) (Negative) [facility]) (Negative) Influenza Type A (PCR) (Neg) Influenza Type B (PCR) (Neg) RSV (RT-PCR) (Neg) SARS-CoV-2, RNA, NAAT TB Test (QFT) Gold Plus TB Test (QFT) Nil TB Test Mitogen - Nil TB Test Ag - Nil 1 TB Test Ag - Nil 2 11/05/20 Range/Units 09:20 WBC 17.11 H (4.8-10.8) K/uL RBC 3.95 L (4.7-6.1) M/uL Hgb 11.7 L (14.0-18.0) g/dL Hct 34.2 L (42-52) % MCV 86.6 (80-100) fL MCH 29.6 (25-34) pg MCHC 34.2 (32-36) g/dL RDW Std Deviation 42.2 (36.4-46.3) fL RDW Coeff of Margaux 13.2 (11.5-14.5) % Plt Count 445 H (130-400) K/uL MPV 9.9 (7.4-10.4) fL Immature Gran % (Auto) 0.4 % Neut % (Auto) 88.7 % Lymph % (Auto) 4.3 % [place] % (Auto) 6.5 % Eos % (Auto) 0.0 % Baso % (Auto) 0.1 % Neut # (Auto) 15.17 H (1.4-6.5) K/uL Lymph # (Auto) 0.74 L (1.2-3.4) K/uL [place] # (Auto) 1.12 H (0.11-0.59) K/uL Eos # (Auto) 0.00 (0-0.5) K/uL Baso # (Auto) 0.01 (0-0.2) K/uL Immature Gran # (Auto) 0.07 H (0.00-0.02) K/uL ESR (0-14) mm/hr PT (9.0-12.0) Seconds INR (0.9-1.1) APTT (21.0-31.0) Seconds PTT Ratio Sodium (136-145) mmol/L Potassium (3.5-5.1) mmol/L Chloride (98-107) mmol/L Carbon Dioxide (21-32) mmol/L Anion Gap (3-11) BUN (7-18) mg/dl Creatinine (0.6-1.4) mg/dl Est Cr Clr Drug Dosing ml/min Est GFR ( Amer) Est GFR (Non-Af Amer) BUN/Creatinine Ratio (10-20) Glucose (70-99) mg/dl POC Glucose (70-99) mg/dl Calcium (8.5-10.1) mg/dl Phosphorus (2.5-4.9) mg/dl Magnesium (1.8-2.4) mg/dl Total Bilirubin (0.2-1) mg/dl AST (15-37) U/L ALT (12-78) U/L Alkaline Phosphatase (45-117) U/L Troponin I (0-0.045) ng/ml C-Reactive Protein (0-0.29) mg/dl Total Protein (6.4-8.2) gm/dl Albumin (3.4-5.0) gm/dl Globulin (2.5-4.0) gm/dl Albumin/Globulin Ratio (0.9-2) Lipase (73-393) U/L Procalcitonin (0-0.5) ng/ml TSH (0.300-4.500) uIu/ml Fluid Neutrophils % % Fluid Lymphocytes % % Fluid Eosinophils % % Fluid Basophils % % Fluid [place] % % Pericard Color Pericard Appearance [place] WBC /ul [place] RBC /uL [place] Total Protein Pericardial LDH Nasal Screen MRSA (PCR) (Negative) COVID-19 Eval Order SARS-CoV-2 (PCR) (Negative) Influenza Type A (PCR) (Neg) Influenza Type B (PCR) (Neg) RSV (RT-PCR) (Neg) SARS-CoV-2, RNA, NAAT TB Test (QFT) Gold Plus TB Test (QFT) Nil TB Test Mitogen - Nil TB Test Ag - Nil 1 TB Test Ag - Nil 2 Coding Level of Care Code 49635 Subseq Hosp Care Lvl 1 Diagnoses Admitted to intensive care unit Z78.9 Dyslipidemia E78.5 Pericardial effusion with cardiac tamponade I31.3; I31.4 Pericarditis I31.9 Chronicity: unspecified Pericarditis type: unspecified type Pericardial effusion I31.3 Chest pain R07.9 Chest pain type: unspecified CAD (coronary artery disease) I25.110 Associated angina: with unstable angina Coronary Disease-Associated Artery/Lesion type: unspecified vessel or lesion type [place] vs. transplanted heart: [place] heart (1) CAD (coronary artery disease) Associated angina: with unstable angina Coronary Disease-Associated Artery/Lesion type: unspecified vessel or lesion type [place] vs. transplanted heart: [place] heart Qualified Code(s): I25.110 - Atherosclerotic heart disease of [place] coronary artery with unstable angina pectoris (2) Pericarditis Chronicity: unspecified Pericarditis type: unspecified type Qualified Code(s): I31.9 - Disease of pericardium, unspecified (3) Chest pain Chest pain type: unspecified Qualified Code(s): R07.9 - Chest pain, unspecified
[2020-11-06] MEDS: PANTOprazole 40 MG TAB PO SCH (09:28)
[2020-11-06] MEDS ORDERED: POTASSIUM CHLORIDE CRTAB 20 MEQ TABCR PO ONE (09:30)
[2020-11-06] MEDS ORDERED: METOPROLOL SUCC 50MG EXT REL TAB PO STA (09:46)
[2020-11-06 10:23] LABS: BUN Creatinine Ratio 14.3 (10-20); Calcium 8.2 mg/dl (8.5-10.1); Creatinine Clr Calc Pharmacy 101.7 ml/min; Est GFR (Non-African American) 95.8; Potassium 3.5 mmol/L (3.5-5.1)
[2020-11-06] MEDS ORDERED: SODIUM CHLORIDE 0.9% 500 ML IV ONE (10:30)
[2020-11-06] MEDS: ACETAMINOPHEN 325 MG TAB PO PRN (11:50)
[2020-11-06] MEDS: METOPROLOL TARTRATE 25 MG TAB PO SCH (13:10)
[2020-11-06 13:50] LABS: BUN Creatinine Ratio 14.3 (10-20); Creatinine Clr Calc Pharmacy 108.5 ml/min; Est GFR (Non-African American) 98.4; Potassium 3.7 mmol/L (3.5-5.1)
[2020-11-06] MEDS: DEXTROSE 5% 1,000 ML IV SCH (15:23)
[2020-11-06] MEDS ORDERED: METOPROLOL SUCC 25MG EXT REL TAB PO ONE (16:46)
--- NOTE | 2020-11-06 17:33 | Communication Note ---
Date of Service: November 06, 2020 No significant additional drainage from pericardial drain overnight. Echo images reviewed. Has a small to moderate amount of residual clotted blood in p ericardium. Attempted to flush pericardial drain with heparinized saline and catheter pulled back in pericardial space but unable to drain any additional fluid. After discussion with Dr. Blackmon pericardial drain removed without complication. Repeat echo in AM.
[2020-11-06 18:07] LABS: BUN Creatinine Ratio 13.2 (10-20); Calcium 8.3 mg/dl (8.5-10.1); Creatinine Clr Calc Pharmacy 70.8 ml/min; Est GFR (Non-African American) 81.1; Potassium 3.9 mmol/L (3.5-5.1)
--- NOTE | 2020-11-06 18:45 | Communication Note ---
Date of Service: November 06, 2020 bmp trends through the day reviewed > Na 131, K 3.9 > both at goal; pt tolerated 1/2 L NS today w/o issue; remains on RA; hypotensive borderline and HR in 120- 130s and F this afternoon 38.4; drain removed; no abtx, no new cxs hyponatremia correcting at appropriate rate; goal sNa for AM would be wnl >defer to critical care and cardiology for further IVF as indicated at this time based on managing tachycardia, hypotension, F -would continue q 6-8h bmp however -would if possible avoid nsaids moving forward given bleeding, recent hyponatremia but defer to cardiology -care coordinated w/ Dr Waller
[2020-11-06] MEDS: ROSUVASTATIN CALCIUM 10 MG TAB PO SCH (20:40)
[2020-11-06] MEDS: ASPIRIN 81 MG ECTAB PO SCH (20:41)
[2020-11-06] MEDS ORDERED: METOPROLOL SUCC 50MG EXT REL TAB PO SCH (21:00)
[2020-11-06] MEDS ORDERED: METOPROLOL SUCC 25MG EXT REL TAB PO SCH (21:00)
[2020-11-06 22:09] LABS: BUN Creatinine Ratio 15.1 (10-20); Calcium 8.1 mg/dl (8.5-10.1); Creatinine Clr Calc Pharmacy 81.4 ml/min; Est GFR (African American) 101.3; Est GFR (Non-African American) 87.4; Potassium 3.8 mmol/L (3.5-5.1)
[2020-11-07 05:26] LABS: Basophils # (auto) 0.04 K/uL (0-0.2); Basophils % (auto) 0.3 %; Eosinophils # (auto) 0.03 K/uL (0-0.5); Eosinophils % (auto) 0.2 %; Hematocrit (blood only) 33.8 % (42-52); Hemoglobin 11.4 g/dL (14.0-18.0); Immature Granulocytes # (auto) 0.03 K/uL (0.00-0.02); Immature Granulocytes % (auto) 0.2 %; Lymphocytes # (auto) 1.62 K/uL (1.2-3.4); Lymphocytes % (auto) 12.2 %; Mean Corpuscular Hemoglobin 29.4 pg (25-34); Mean Corpuscular Hgb Conc 33.7 g/dL (32-36); Mean Corpuscular Volume 87.1 fL (80-100); Mean Platelet Volume 9.1 fL (7.4-10.4); Monocytes % (auto) 8.3 %; Neutrophils # (auto) 10.47 K/uL (1.4-6.5); Neutrophils % (auto) 78.8 %; Platelet Count 463 K/uL (130-400); RDW Standard Deviation 41.8 fL (36.4-46.3); Red Blood Count 3.88 M/uL (4.7-6.1); White Blood Count 13.29 K/uL (4.8-10.8)
[2020-11-07 06:01] LABS: BUN Creatinine Ratio 14.4 (10-20); Calcium 7.7 mg/dl (8.5-10.1); Creatinine Clr Calc Pharmacy 95.7 ml/min; Est GFR (African American) 108.3; Est GFR (Non-African American) 93.4; Magnesium 2.3 mg/dl (1.8-2.4); Phosphorus 2.4 mg/dl (2.5-4.9); Potassium 3.8 mmol/L (3.5-5.1)
--- NOTE | 2020-11-07 06:28 | Electrocardiogram Report ---
Test Reason : Blood Pressure : / mmHG Vent. Rate : 128 BPM Atrial Rate : 128 BPM P-R Int : 154 ms QRS Dur : 084 ms QT Int : 296 ms P-R-T Axes : 052 037 060 degrees QTc Int : 432 ms Sinus tachycardia Otherwise normal ECG When compared with ECG of 05-NOV-2020 09:18, Premature atrial complexes are no longer Present Confirmed by Dave Hurst ([id number]) on 11/07/2020 6:27:51 AM Referred By: [facility] Confirmed By:Dave Hurst
--- NOTE | 2020-11-07 08:18 | XRay Report ---
XR chest 1V portable CLINICAL HISTORY: f/u COMPARISON STUDY: Chest CT October 25, 2020. Chest radiograph November 05, 2020. FINDINGS: Lung volumes are mildly diminished. Moderate cardiomegaly is noted. There is no pneumothora x. There are trace bilateral pleural effusions. Left basilar consolidation has developed. There may b e mild right basilar opacity. There is no evidence for overt pulmonary edema. IMPRESSION: 1. Interval development of left basilar opacity which may reflect pneumonia or atelectasis. 2. Trace bilateral pleural effusions. 3. Cardiomegaly. No overt pulmonary edema. ACT 112: Negative or not required by law. Electronically signed by: Zuhair Acosta M.D. 11/07/2020 8:17 AM
[2020-11-07] MEDS: PANTOprazole 40 MG TAB PO SCH (08:52)
[2020-11-07] MEDS: METOPROLOL SUCC 50MG EXT REL TAB PO SCH ×2 (08:53→20:22)
[2020-11-07 09:55] LABS: BUN Creatinine Ratio 13.5 (10-20); Calcium 7.8 mg/dl (8.5-10.1); Creatinine Clr Calc Pharmacy 95.7 ml/min; Est GFR (African American) 108.3; Est GFR (Non-African American) 93.4; Potassium 3.8 mmol/L (3.5-5.1)
--- NOTE | 2020-11-07 09:59 | Nephrology Progress Note ---
Date of Service November 07, 2020 Assessment & Plan (1) Hyponatremia: presented w/ serum sodium 121 11/05/2019 0930, chronicity unknown, so will assume it's chronic, eg > 48 hrs duration. corrected at admission to 123 accounting for glucose; no hyponatremia at september admission; ibuprofen can certainly cause hyponatremia. asymptomatic currently, though malaise, weakness w/ which he presented could theoretically have had sodium component. corrected to 130 by 2100 11/05/20, where he has essentially been ever since. On the day of admission he had multiple medical interventions through night to limit rate of sodium correction. no serum osms or urine studies sent. clinically contributing ff include NSAIDS +/- physiologic volume depletion physiology of cardiac tamponade; corrected at appropriate rate and plateaued for the last 24 to 36 hours at 130. further w/u not indicated and would instead monitor labs frequently, adjust meds to limit rate of correction -Maintain eukalemia -Corrected at appropriate rate and stable -At least daily basic metabolic panel especially as nsaids resumed We will sign off; please call if further questions Admission and Anticipated Discharge Date Admission Date: November 05, 2020 Subjective T-max yesterday 38.4; none today. pt feels much improved again today > no dypsnea, no palpitations, no edema or N. seen on rounds at about noon; to come out of ICU today Review of Systems Review of Systems: All systems reviewed & are unremarkable except as noted in HPI & below Physical Exam Constitutional: well developed and well nourished; no acute distress Eyes: EOM intact bilaterally ENMT: Ears: no external ear abnormality Nose: no external nose abnormality Mouth: oral mucous membranes not dry Neck: no nuchal rigidity Respiratory: normal respiratory effort Auscultation: lungs clear to auscultation bilaterally and + diminished lung sounds Cardiovascular: Rate/Rhythm: + tachycardic (120s) Extremities: no edema Gastrointestinal (Abdomen): Inspection/Auscultation: normal bowel sounds Percussion/Palpation: abdomen soft; abdomen nontender and no guarding Musculoskeletal: Extremities: strength 5/5 throughout Skin: no rashes, warm and dry Psychiatric: A+Ox3, euthymic affect Speech: normal rate/rhythm/volume of speech Results & Data ([facility]) Vital Signs (Past 12 Hours) Vital Signs Temp Pulse Pulse Resp BP BP Pulse Ox 11/07/20 07:59 37.8 C H 128 H 18 119/63 95 11/07/20 06:00 36.6 C 127 H 104/73 95 11/07/20 05:24 125 H 33 H 113/76 96 11/07/20 05:02 132 H 11 L 95 11/07/20 04:00 123 H 46 H 94 11/07/20 03:00 124 H 95 11/07/20 02:00 126 H 50 H 95 11/07/20 01:00 132 H 93 11/07/20 00:01 134 H 48 H 93 11/07/20 00:00 134 H 27 H 108/68 95 11/06/20 23:01 129 H 25 H 95 11/06/20 23:00 129 H 28 H 118/69 95 11/06/20 22:00 132 H 27 H 122/71 94 Laboratory Results 11/07/20 05:04 11/07/20 09:04
--- NOTE | 2020-11-07 11:45 | Cardiology Progress Note ---
Date of Service November 07, 2020 Assessment & Plan (1) Pericardial effusion with cardiac tamponade: 74-year-old male recently hospitalized with acute pericarditis on 10/25/2020 treated appropriate with colchicine and ibuprofen presented 11/05/2020 with clinical decline increasing diaphoresis malaise and possible episode of nonresponsiveness . Echocardiogram demonstrated large pericardial effusion is a substantial change from prior study.. There was physiologic findings consistent with early tamponade on echocardiography Plan: Patient feels well this morning but still tachycardic. Low-grade temperature. Echocardiogram without further accumulation of fluid We will restart colchicine Restart ibuprofen 400 3 times daily avoid corticosteroids at this time Continue increased dose of metoprolol succinate Gradually increase activities Admission and Anticipated Discharge Date Admission Date: November 05, 2020 Subjective Patient seen and examined, chart, medications, telemetry reviewed. Patient feels well but tired of being in bed. Heart rate still labile and elevated at times. Low-grade fever this morning. No pleuritic pain Physical Exam Constitutional: WD/WN, vitals as above Eyes: PERRL, conjunctivae normal, anicteric sclerae ENMT: external ear and nose normal, oropharynx normal Neck: trachea midline, no thyromegaly Cardiovascular: Rate/Rhythm: regular rhythm and + tachycardic Heart Sounds: no cardiac rub Vessels: no JVD Extremities: no edema Chest (Breasts): Additional Comments: Pericardiocentesis access site without d rainage or erythema Gastrointestinal (Abdomen): normal bowel sounds, soft, nontender, no hepatosplenomegaly Musculoskeletal: no cyanosis or clubbing, extremities motor strength 5/5 Neurologic: PERRL, EOMI, accommodation nl, no face palsy, no dysarthria Psychiatric: A+Ox3, euthymic affect Results & Data ([facility]) Vital Signs (Past 12 Hours) Vital Signs Temp Pulse Pulse Resp BP BP Pulse Ox 11/07/20 07:59 37.8 C H 128 H 18 119/63 95 11/07/20 06:00 36.6 C 127 H 104/73 95 11/07/20 05:24 125 H 33 H 113/76 96 11/07/20 05:02 132 H 11 L 95 11/07/20 04:00 123 H 46 H 94 11/07/20 03:00 124 H 95 11/07/20 02:00 126 H 50 H 95 11/07/20 01:00 132 H 93 11/07/20 00:01 134 H 48 H 93 11/07/20 00:00 134 H 27 H 108/68 95 Laboratory Results Laboratory Results - last 24 hr 11/06/20 11/06/20 11/06/20 12:58 17:43 21:33 WBC RBC Hgb Hct MCV MCH MCHC RDW Std Deviation RDW Coeff of Margaux Plt Count MPV Immature Gran % (Auto) Neut % (Auto) Lymph % (Auto) [place] % (Auto) Eos % (Auto) Baso % (Auto) Neut # (Auto) Lymph # (Auto) [place] # (Auto) Eos # (Auto) Baso # (Auto) Immature Gran # (Auto) Sodium 130 L 131 L 131 L Potassium 3.7 3.9 3.8 Chloride 98 99 100 Carbon Dioxide 24 26 24 Anion Gap 7.0 7.0 7.0 BUN 9 12 12 Creatinine 0.60 0.92 D 0.80 Est Cr Clr Drug Dosing 108.5 70.8 81.4 Est GFR ( Amer) 114.0 94.0 101.3 Est GFR (Non-Af Amer) 98.4 81.1 87.4 BUN/Creatinine Ratio 14.3 13.2 15.1 Glucose 133 H 138 H 114 H Calcium 8.0 L 8.3 L 8.1 L Phosphorus Magnesium 11/07/20 11/07/20 11/07/20 05:04 05:04 09:04 WBC 13.29 H RBC 3.88 L Hgb 11.4 L Hct 33.8 L MCV 87.1 MCH 29.4 MCHC 33.7 RDW Std Deviation 41.8 RDW Coeff of Margaux 13.0 Plt Count 463 H MPV 9.1 Immature Gran % (Auto) 0.2 Neut % (Auto) 78.8 Lymph % (Auto) 12.2 [place] % (Auto) 8.3 Eos % (Auto) 0.2 Baso % (Auto) 0.3 Neut # (Auto) 10.47 H Lymph # (Auto) 1.62 [place] # (Auto) 1.10 H Eos # (Auto) 0.03 Baso # (Auto) 0.04 Immature Gran # (Auto) 0.03 H Sodium 130 L 130 L Potassium 3.8 3.8 Chloride 99 99 Carbon Dioxide 27 25 Anion Gap 4.0 6.0 BUN 10 9 Creatinine 0.68 0.68 Est Cr Clr Drug Dosing 95.7 95.7 Est GFR ( Amer) 108.3 108.3 Est GFR (Non-Af Amer) 93.4 93.4 BUN/Creatinine Ratio 14.4 13.5 Glucose 95 151 H Calcium 7.7 L 7.8 L Phosphorus 2.4 L Magnesium 2.3
[2020-11-07] MEDS: ACETAMINOPHEN 325 MG TAB PO PRN (11:57)
[2020-11-07] MEDS ORDERED: PPD CHECK ONE (12:00)
[2020-11-07] MEDS ORDERED: IBUPROFEN 200 MG TAB PO ONE (13:00)
--- NOTE | 2020-11-07 13:09 | XCELERA ---
[id number]
[2020-11-07] MEDS: COLCHICINE 0.6 MG TAB PO SCH (13:20)
[2020-11-07 13:21] LABS: Quantiferon Mitogen-NIL >10.00 IU/mL; Quantiferon NIL 0.03 IU/mL; Quantiferon TB Gold Plus NEGATIVE (NEGATIVE); Quantiferon TB1-NIL 0.05 IU/mL; Quantiferon TB2-NIL 0.13 IU/mL
[2020-11-07] MEDS ORDERED: METOPROLOL TARTRATE 1 MG/ML VIAL IV PRN (14:56)
--- NOTE | 2020-11-07 18:13 | Hospitalist Progress Note ---
Date of Service November 07, 2020 Assessment & Plan (1) Pericardial effusion with cardiac tamponade: This is a 74-year-old male who has significant past medical history of CAD, HTN, HLD and GERD who presents to ED secondary to ill feeling and worsening cardiac symptoms since discharge x3 to 4 days. Patient hospitalized 10/25 and 10/26 secondary to acute pericarditis treated with colchicine and ibuprofen. Readmission secondary to worsening of shortness of breath/potential/tachycardia:-echo showed large pericardial effusion with substantial change from prior study, with evidence of tamponade Status post urgent pericardiocentesis with removal of 800 cc of bloody pericardial effusion. symptomatically much improved after procedure -denies of chest pressure chest heaviness, no shortness of breath or orthopnea. Appreciate input from cardiology, Echo shows a significant reduction in size of precordial effusion, small to moderate amount of residual clotted blood in pericardium. Pericardial drain removed by Dr. Bains Afib RVR : developed around 1: 40 pm today on Beta sharonda pt reports episodes of palpitation while walking to bathroom resolves with rest no LAY HR variable between 100 at rest -160 with minimum activity on beta sharonda /Metoprolol Succinate 100 mg BID Cardiology updated (2) CAD (coronary artery disease): Leukocytosis/Elevated CRP Possibly due to pericarditis blood cultures pending, cultures to be obtained from pericardiocentesis CAD hx of stent x 2 04/2019 in [place] chest heaviness due to pericarditis no angina symptoms now HTN : BP stable cont out pt meds Beta sharonda dose adjusted by cardiology Hyponatremia : Na improved Appreciate input from nephrology, possible culprit could be ibuprofen Profen/NSAID which patient received for pericarditis Follow BMP HLD continue statin Fasting lipid panel ( LDL45, HDL 56, Chol 127, trig 132) 10/25 A1C 5.6 10/25 DVT PPX: SCD/TEDS Disposition:Discharge to home when medically stable Follow up: PCP CVIM upon discharge along with cardiology follow up Full code Admission and Anticipated Discharge Date Admission Date: November 05, 2020 Subjective follow up visit for Pericardial effusion /cardiac tamponade s/p thoracentesis : pt seen and examined at bedside : doing fairly well , no complain of chest discomfort , no SOB or orthopnea remains in room air no fever or chills normal energy level converted to rapid afib around 1:40 pm , pt reports of feeling occasional episode of palpitation no dizzy spell or lightheadedness Review of Systems Review of Systems: All systems reviewed & are unremarkable except as noted in HPI & below Constitutional: no fever Respiratory: no cough, no dyspnea and no dyspnea on exertion Cardiovascular: + palpitations; no chest pain, no dyspnea, no dyspnea at rest, no dyspnea on exertion, no orthopnea and no lightheadedness Physical Exam Constitutional: WD/WN, vitals as above Eyes: PERRL, conjunctivae normal, anicteric sclerae ENMT: external ear and nose normal, oropharynx normal Neck: trachea midline, no thyromegaly Respiratory: normal respiratory effort, lungs clear to auscultation Cardiovascular: Rate/Rhythm: + irregularly irregular Extremities: no edema Gastrointestinal (Abdomen): normal bowel sounds, soft, nontender, no hepatosplenomegaly Musculoskeletal: no cyanosis or clubbing, extremities motor strength 5/5 Skin: no rashes, warm and dry Neurologic: PERRL, EOMI, accommodation nl, no face palsy, no dysarthria Psychiatric: A+Ox3, euthymic affect Results & Data Results & Data ([facility]) Vital Signs (Past 12 Hours) Vital Signs Temp Pulse Pulse Pulse Resp BP BP 11/07/20 16:00 102 H 11/07/20 15:21 36.7 C 90 20 11/07/20 12:50 37.5 C 107 H 134/77 11/07/20 11:46 38.3 C H 117 H 20 99/64 L 11/07/20 11:45 117 H 18 99/64 L 11/07/20 11:00 127 H 22 11/07/20 10:00 136 H 25 H 130/71 11/07/20 09:00 136 H 22 109/77 11/07/20 08:00 136 H 11/07/20 07:59 37.8 C H 128 H 18 11/07/20 07:00 126 H 15 108/64 BP Pulse Ox 11/07/20 16:00 11/07/20 15:21 116/69 94 11/07/20 12:50 95 11/07/20 11:46 96 11/07/20 11:45 97 11/07/20 11:00 95 11/07/20 10:00 94 11/07/20 09:00 97 11/07/20 08:00 95 11/07/20 07:59 119/63 95 11/07/20 07:00 96 (1) CAD (coronary artery disease) Associated angina: with unstable angina Coronary Disease-Associated Artery/Lesion type: unspecified vessel or lesion type [place] vs. transplanted heart: [place] heart Qualified Code(s): I25.110 - Atherosclerotic heart disease of [place] coronary artery with unstable angina pectoris
--- NOTE | 2020-11-07 19:36 | Communication Note ---
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
[2020-11-07] MEDS: ASPIRIN 81 MG ECTAB PO SCH (20:22)
[2020-11-07] MEDS: ROSUVASTATIN CALCIUM 10 MG TAB PO SCH (20:22)
[2020-11-07] MEDS: IBUPROFEN 200 MG TAB PO SCH (20:23)
[2020-11-07] MEDS ORDERED: STAT IV Infusion **Titration per Protocol STA (20:59)
[2020-11-07] MEDS ORDERED: dilTIAZem HCl 5 MG/ML 5 ML VIAL IV STA (20:59)
[2020-11-07] MEDS ORDERED: dilTIAZem HCL 125 MG in DEXTROSE 5% 100 ML IV SCH (20:59)
[2020-11-08 08:47] LABS: Hematocrit (blood only) 32.8 % (42-52); Hemoglobin 11.4 g/dL (14.0-18.0); Mean Corpuscular Hemoglobin 29.9 pg (25-34); Mean Corpuscular Hgb Conc 34.8 g/dL (32-36); Mean Corpuscular Volume 86.1 fL (80-100); Mean Platelet Volume 9.2 fL (7.4-10.4); Platelet Count 544 K/uL (130-400); RDW Coefficient of Variation 13.1 % (11.5-14.5); RDW Standard Deviation 41.7 fL (36.4-46.3); Red Blood Count 3.81 M/uL (4.7-6.1); White Blood Count 10.71 K/uL (4.8-10.8)
[2020-11-08] MEDS: IBUPROFEN 200 MG TAB PO SCH ×3 (08:55→20:40)
[2020-11-08] MEDS: COLCHICINE 0.6 MG TAB PO SCH (08:56)
[2020-11-08] MEDS: PANTOprazole 40 MG TAB PO SCH (08:56)
[2020-11-08] MEDS: METOPROLOL SUCC 50MG EXT REL TAB PO SCH ×2 (08:56→20:40)
[2020-11-08 09:09] LABS: BUN Creatinine Ratio 18.8 (10-20); Calcium 8.5 mg/dl (8.5-10.1); Creatinine Clr Calc Pharmacy 106.9 ml/min; Est GFR (African American) 113.2; Est GFR (Non-African American) 97.7; Magnesium 2.1 mg/dl (1.8-2.4); Potassium 3.7 mmol/L (3.5-5.1)
[2020-11-08] MEDS ORDERED: VANCOMYCIN CONSULT ACTIVE PRN (11:07)
--- NOTE | 2020-11-08 11:10 | Communication Note ---
Date of Service: November 08, 2020 Attending note: Blood culture on 11/05/2020: 1 bottle aerobic: Gram-positive bacilli No growth in anaerobic bottle after 48 hours. Patient does not have any fever or chills, normal white count. Positive blood culture very likely due to contaminated sample during lab draw. Repeat blood cultures ordered. Patient's presentation with large pericardial effusion, pericarditis, we will treat empirically with IV vancomycin ordered for 48 hours only. Antibiotic will be discontinued once repeat blood culture growth is negative Pharmacy updated regarding vancomycin dosing Atrial fibrillation/RVR. Possible due to pericardial irritation in the setting of large pericardial effusion s/p pericardiocentesis. Started with IV Cardizem drip, converted to sinus rhythm, remains rate controlled in 80s, Plan to wean off IV Cardizem drip currently on 5 mg/h. will defer to cardiology regarding p.o. Cardizem dose if indicated. Patient is on Toprol-XL 100 mg twice daily. Anticoagulation is not indicated as very short duration of atrial fibrillation, hemorrhagic pericardial effusion. Continue to monitor patient in PCU Violet Ramirez MD
[2020-11-08] MEDS ORDERED: VANCOMYCIN HCL 2,000 MG in SODIUM CHLORIDE 0.9% 500 ML IV ONE (11:30)
--- NOTE | 2020-11-08 12:40 | Cardiology Progress Note ---
Date of Service November 08, 2020 Assessment & Plan (1) Pericardial effusion with cardiac tamponade: 74-year-old male recently hospitalized with acute pericarditis on 10/25/2020 treated appropriate with colchicine and ibuprofen presented 11/05/2020 with clinical decline increasing diaphoresis malaise and possible episode of nonresponsiveness . Echocardiogram demonstrated large pericardial effusion is a substantial change from prior study.. There was physiologic findings consistent with early tamponade on echocardiography Plan: Patient feeling well this morning and was asymptomatic with the atrial fibrillation overnight. At this point the Cardizem drip was discontinued and will start him on amiodarone 400 mg p.o. twice daily to maintain normal sinus rhythm. Obviously is not an anticoagulation candidate at this point given the bloody pericardial effusion, luckily, he was only in A. fib for a few hours His metoprolol, colchicine and ibuprofen will be continued. 1 bottle of blood cultures came back positive for gram-positive bacilli and antibiotics are being initiated by the primary team. Would like to repeat a limited echocardiogram next week to follow effusion. (2) Atrial fibrillation with rapid ventricular response: (3) Positive blood culture: Admission and Anticipated Discharge Date Admission Date: November 05, 2020 Subjective Patient seen and examined, chart reviewed. Currently out of bed eating lunch and states that he feels well. He denies any chest pain, shortness of breath, palpitations, lightheadedness, dizziness or syncope. He did lapse into atrial fibrillation with rapid ventricular response last night, at that time I discussed the case with the primary team and recommended initiation of a Cardizem drip. He did spontaneously convert to normal sinus rhythm overnight. He was completely asymptomatic with the atrial fibrillation. Telemetry reviewed: Normal sinus rhythm with frequent ectopy. Review of Systems Review of Systems: All systems reviewed & are unremarkable except as noted in HPI & below Physical Exam Physical Exam: General: Awake, alert and oriented x 3. No acute distress. HEENT: Normocephalic, atraumatic. Pupils equal, round and reactive to light and accommodation. Extraocular muscles are intact. Anicteric sclera. Moist mucous membranes. Neck: No JVD. No bruit. Cardiovascular: Regular. Positive S-4. Normal S-1 and S-2. No S-3. No murmurs or rubs. Pulmonary: Clear to auscultation B/L. No rales, rhonchi or wheezing Abdomen: Bowel sounds x 4, soft. No rebound, guarding or tenderness. No organomegaly. Extremities: No clubbing, cyanosis or edema. +2 pedal pulses bilaterally. Skin: Warm and dry. Results & Data ([facility]) Vital Signs (Past 12 Hours) Vital Signs Temp Pulse Resp BP Pulse Ox 11/08/20 07:46 36.9 C 98 H 18 129/71 96 11/08/20 05:15 36.6 C 73 16 115/77 97
[2020-11-08] MEDS: POTASSIUM CHLORIDE CRTAB 20 MEQ TABCR PO SCH (14:02)
[2020-11-08] MEDS: AMIODARONE 200 MG TAB PO SCH ×2 (14:02→20:40)
--- NOTE | 2020-11-08 14:10 | Pharmacy Report ---
Pharmacy Abx Initial Consult - Date of Service November 08, 2020 - Pharmacy Dosing Scope Date of Consult: 11/08/20 Consultation requested by: Dr. Ramirez Pharmacy is consulted to initiate Vancomycin IV dosing therapy, order appropriate labs and adjust drug dose/frequency. - Subjective The patient is a 74 year old M admitted on 11/05/20 11:38. - Objective Height: 5 ft 5 in Weight: 88.4 kg Vital Signs (Past 12hrs): Vital Signs Temp Pulse Resp BP Pulse Ox 11/08/20 07:46 36.9 C 98 H 18 129/71 96 11/08/20 05:15 36.6 C 73 16 115/77 97 Lab Results (24hrs): Laboratory Tests (24 Hours) 11/08/20 11/08/20 08:08 08:08 WBC 10.71 Creatinine 0.61 Est Cr Clr Drug Dosing 106.9 Micro Results: 11/05/20 12:54 Acid Fast Bacilli Smear - Final Pericardial Fluid 11/08/20 11:54 Aerobic Blood Culture - Pending Blood Anaerobic Blood Culture - Pending 11/08/20 12:04 Aerobic Blood Culture - Pending Blood Anaerobic Blood Culture - Pending 11/05/20 12:54 Gram Stain - Final Pericardial Fluid 11/05/20 12:54 Fungal Smear - Final Chest Fungal Culture - Pending - Assessment & Plan Assessment 74 year old M initiated on IV Vancomycin {empiric 48 hr therapy only} for positive blood cultures secondary to possible pericarditis. Note: blood cultures may be contamination only- repeating blood cultures 11/08/20. If these cultures are negative ok to stop IV Vanco. Plan Vancomycin IV * Patient meets criteria for vancomycin AUC dosing nomogram * AUC/CAMILO is the preferred PK/PD target for vancomycin * Target AUC/CAMILO = 400-600 * AUC guided dosing is effective and associated with decreased risk of neph rotoxicity. * Vancomycin 2,000mg (23 mg/kg) IV x 1 loading dose then Vanco 1,500mg IV Q8hrs. * Will order a trough level if blood cultures come back positive and vancomycin is continued beyond 48 hrs Pharmacy will continue to follow and will adjust dose/frequency as necessary. Thank you.
--- NOTE | 2020-11-08 17:00 | Communication Note ---
Date of Service: November 08, 2020 pericardial fluid pathology : negative for malignancy Serology reviewed : Positive for JONATHAN /rheumatoid factor JONATHAN titre 1: 40 JONATHAN pattern : intracellular Rheumatology consulted pt requested to update his family friend Dr Delphine Perez(# [phone]) - as he was having difficulty understanding treatment plan due to language barrier Dr Perez and Pt's updated Violet Ramirez MD
--- NOTE | 2020-11-08 17:27 | Hospitalist Progress Note ---
Date of Service November 08, 2020 Assessment & Plan (1) Pericardial effusion with cardiac tamponade: This is a 74-year-old male who has significant past medical history of CAD, HTN, HLD and GERD who presents to ED secondary to ill feeling and worsening cardiac symptoms since discharge x3 to 4 days. Patient hospitalized 10/25 and 10/26 secondary to acute pericarditis treated with colchicine and ibuprofen. Readmission secondary to worsening of shortness of breath/potential/tachycardia:-echo showed large pericardial effusion with substantial change from prior study, with evidence of tamponade Status post urgent pericardiocentesis with removal of 800 cc of bloody pericardial effusion. symptomatically much improved after procedure -denies of chest pressure chest heaviness, no shortness of breath or orthopnea. Appreciate input from cardiology, Echo shows a significant reduction in size of precordial effusion, small to moderate amount of residual clotted blood in pericardium. Pericardial drain removed by Dr. Herson Gray fib RVR, was started with IV Cardizem drip, converted to sinus Appreciate input from cardiology patient started with p.o. amiodarone, continue to monitor in telemetry, plan for limited echocardiogram on Tuesday Lab work shows JONATHAN positive rheumatoid factor positive, rheumatology consult requested (2) CAD (coronary artery disease): Leukocytosis/Elevated CRP Possibly due to pericarditis blood cultures pending, cultures to be obtained from pericardiocentesis shows no growth 1 set of blood culture shows gram-negative cocci, possible contamination, repeat blood cultures ordered Empirically started on IV vancomycin CAD hx of stent x 2 04/2019 in [place] chest heaviness due to pericarditis no angina symptoms now HTN : BP stable Hyponatremia : Na improved Appreciate input from nephrology, possible culprit could be ibuprofen Profen/NSAID which patient received for pericarditis Follow BMP HLD continue statin Fasting lipid panel ( LDL45, HDL 56, Chol 127, trig 132) 10/25 A1C 5.6 10/25 DVT PPX: SCD/TEDS Disposition:Discharge to home when medically stable Follow up: PCP [facility] upon discharge along with cardiology follow up Full code Admission and Anticipated Discharge Date Admission Date: November 05, 2020 Subjective Follow-up visit for pericardial effusion hemorrhagic/status post pericardiocentesis/A. fib RVR: Patient converted to sinus with rate control while on Cardizem drip, Drip discontinued, patient started on p.o. amiodarone, Seen at bedside, sees he feels fine, no complaint of shortness of breath, no palpitation, no dyspnea on exertion or no orthopnea No cough no fever or chills Patient's heart rate was up to 120s sinus tach frequent PVCs with activity , heart rate improved to 80s/90s sinus at rest patient denies of any symptoms of dizzy spell or lightheadedness. Review of Systems Review of Systems: All systems reviewed & are unremarkable except as noted in HPI & below Constitutional: no fever, no chills and no fatigue Respiratory: no cough, no dyspnea, no dyspnea on exertion and no wheezing Cardiovascular: no chest pain, no chest pain with activity, no dyspnea, no dyspnea at rest, no orthopnea, no palpitations, no lightheadedness, no syncope and no edema Physical Exam Constitutional: WD/WN, vitals as above Eyes: PERRL, conjunctivae normal, anicteric sclerae ENMT: external ear and nose normal, oropharynx normal Neck: trachea midline, no thyromegaly Respiratory: normal respiratory effort, lungs clear to auscultation Cardiovascular: RRR, no murmur, no edema Gastrointestinal (Abdomen): normal bowel sounds, soft, nontender, no hepatosplenomegaly Musculoskeletal: no cyanosis or clubbing, extremities motor strength 5/5 Skin: no rashes, warm and dry Neurologic: PERRL, EOMI, accommodation nl, no face palsy, no dysarthria Psychiatric: A+Ox3, euthymic affect Results & Data Results & Data ([facility]) Vital Signs (Past 12 Hours) Vital Signs Temp Pulse Resp BP Pulse Ox 11/08/20 15:32 37.1 C 95 H 20 127/75 96 11/08/20 07:46 36.9 C 98 H 18 129/71 96 (1) CAD (coronary artery disease) Associated angina: with unstable angina Coronary Disease-Associated Artery/Lesion type: unspecified vessel or lesion type [place] vs. transplanted heart: [place] heart Qualified Code(s): I25.110 - Atherosclerotic heart disease of [place] coronary artery with unstable angina pectoris
[2020-11-08] MEDS: ROSUVASTATIN CALCIUM 10 MG TAB PO SCH (20:40)
[2020-11-08] MEDS: VANCOMYCIN HCL 1,500 MG in SODIUM CHLORIDE 0.9% 500 ML IV SCH (20:40)
[2020-11-08] MEDS: ASPIRIN 81 MG ECTAB PO SCH (20:40)
[2020-11-09] MEDS: VANCOMYCIN HCL 1,500 MG in SODIUM CHLORIDE 0.9% 500 ML IV SCH ×3 (04:07→19:51)
[2020-11-09] MEDS: POTASSIUM CHLORIDE CRTAB 20 MEQ TABCR PO SCH (08:41)
[2020-11-09] MEDS: AMIODARONE 200 MG TAB PO SCH ×2 (08:41→21:37)
[2020-11-09] MEDS: PANTOprazole 40 MG TAB PO SCH ×2 (08:41→21:37)
[2020-11-09] MEDS: COLCHICINE 0.6 MG TAB PO SCH (08:41)
[2020-11-09] MEDS: METOPROLOL SUCC 50MG EXT REL TAB PO SCH ×2 (08:41→21:37)
[2020-11-09] MEDS: IBUPROFEN 200 MG TAB PO SCH (08:45)
[2020-11-09 08:47] LABS: BUN Creatinine Ratio 16.6 (10-20); Calcium 8.6 mg/dl (8.5-10.1); Est GFR (African American) 111.7; Est GFR (Non-African American) 96.4; Potassium 3.8 mmol/L (3.5-5.1)
--- NOTE | 2020-11-09 11:11 | Electrocardiogram Report ---
Test Reason : Blood Pressure : / mmHG Vent. Rate : 102 BPM Atrial Rate : 102 BPM P-R Int : 160 ms QRS Dur : 070 ms QT Int : 372 ms P-R-T Axes : 063 065 081 degrees QTc Int : 484 ms Sinus tachycardia with frequent Premature ventricular complexes Otherwise normal ECG When compared with ECG of 06-NOV-2020 06:53, Premature ventricular complexes are now Present Confirmed by Mehran Julien ([id number]) on 11/09/2020 11:11:03 AM Referred By: [facility] Confirmed By:Casa Julien
[2020-11-09] MEDS ORDERED: predniSONE 20 MG TAB PO STA (11:59)
--- NOTE | 2020-11-09 12:20 | Communication Note ---
Date of Service: November 09, [address] Monteiro, regarding patient's pericardial effusion positive rheumatoid factor/JONATHAN screen. Recommends to order further testing for possible rheumatoid arthritis, lupus. Ordered for antidouble-stranded DNA, complement C3/C4, CCP, [employer] and anti-Alejandra antibody Recommends to start patient on p.o. prednisone 40 mg daily-ordered Discontinued scheduled ibuprofen dose. High risk for GI bleed with combination of NSAIDs and prednisone. Patient will be continue with PPI to prevent GI inflammation/gastritis. Patient will be seen by rheumatology Dr. Monteiro in 2 weeks in clinic. Cardiology updated Violet Ramirez MD ,
--- NOTE | 2020-11-09 12:24 | Cardiology Progress Note ---
Date of Service November 09, 2020 Assessment & Plan (1) Pericardial effusion with cardiac tamponade: 74-year-old male recently hospitalized with acute pericarditis on 10/25/2020 treated appropriate with colchicine and ibuprofen presented 11/05/2020 with clinical decline increasing diaphoresis malaise and possible episode of nonresponsiveness . Echocardiogram demonstrated large pericardial effusion is a substantial change from prior study.. There was physiologic findings consistent with early tamponade on echocardiography Plan: Some symptoms overnight with ambulation to the restroom, likely due to adjustment medications. For completeness sake we will repeat a limited echocardiogram today to follow-up on effusion. Rheumatology recommends steroids for possible rheumatologic induced effusion, will discontinue ibuprofen. His metoprolol and colchicine 1 bottle of blood cultures came back positive for gram-positive bacilli and antibiotics are being initiated by the primary team. Await sensitivities from cultures (2) Atrial fibrillation with rapid ventricular response: (3) Positive blood culture: Admission and Anticipated Discharge Date Admission Date: November 05, 2020 Subjective Patient seen and examined, chart reviewed. Patient states that he is feeling well. Did have an episode of lightheadedness, dizziness and shortness of breath with ambulation to the restroom last night to wash up. Otherwise, feeling well. Denies chest pain and orthopnea. Telemetry reviewed: Normal sinus rhythm without arrhythmia. Review of Systems Review of Systems: All systems reviewed & are unremarkable except as noted in HPI & below Physical Exam Physical Exam: General: Awake, alert and oriented x 3. No acute distress. HEENT: Normocephalic, atraumatic. Pupils equal, round and reactive to light and accommodation. Extraocular muscles are intact. Anicteric sclera. Moist mucous membranes. Neck: No JVD. No bruit. Cardiovascular: Regular. Positive S-4. Normal S-1 and S-2. No S-3. No mu rmurs or rubs. Pulmonary: Clear to auscultation B/L. No rales, rhonchi or wheezing Abdomen: Bowel sounds x 4, soft. No rebound, guarding or tenderness. No organomegaly. Extremities: No clubbing, cyanosis or edema. +2 pedal pulses bilaterally. Skin: Warm and dry. Results & Data ([facility]) Vital Signs (Past 12 Hours) Vital Signs Temp Pulse Pulse Resp BP Pulse Ox 11/09/20 10:54 37.3 C 94 H 20 137/85 97 11/09/20 07:50 95 H 11/09/20 07:31 37.0 C 97 H 20 134/80 97 11/09/20 02:47 36.8 C 97 H 18 118/70 97
[2020-11-09] MEDS: ROSUVASTATIN CALCIUM 10 MG TAB PO SCH (21:37)
[2020-11-09] MEDS: ASPIRIN 81 MG ECTAB PO SCH (21:37)
--- NOTE | 2020-11-09 22:03 | Hospitalist Progress Note ---
Date of Service November 09, 2020 Assessment & Plan (1) Pericardial effusion with cardiac tamponade: This is a 74-year-old male who has significant past medical history of CAD, HTN, HLD and GERD who presents to ED secondary to ill feeling and worsening cardiac symptoms since discharge x3 to 4 days. Patient hospitalized 10/25 and 10/26 secondary to acute pericarditis treated with colchicine and ibuprofen. Readmission secondary to worsening of shortness of breath/potential/tachycardia:-echo showed large pericardial effusion with substantial change from prior study, with evidence of tamponade Status post urgent pericardiocentesis with removal of 800 cc of bloody pericardial effusion. Rapid A. fib RVR, ( new onset during this admission ) was started with IV Cardizem drip, converted to sinus with Iv cardizem gtt Appreciate input from cardiology patient started with p.o. amiodarone, on Toprol XL 100 mg BID no indication for anticoagulation as discussed in previous notes Lab work shows JONATHAN positive rheumatoid factor positive, d.w rheumatology Dr Monteiro ordered for Double stranded DNA ab/CCP/anti kiran ab PO prednisone 40 mg daily clinic follow up with Dr Monteiro in 2 weeks @[facility] (2) CAD (coronary artery disease): Leukocytosis/Elevated CRP resolved Possibly due to pericarditis blood cultures pending, cultures to be obtained from pericardiocentesis shows no growth 1 set of blood culture shows gram-negative cocci, possible contamination, repeat blood cultures ordered dc IV vancomycin if repeat culture no growth CAD hx of stent x 2 04/2019 in [place] chest heaviness due to pericarditis no angina symptoms now HTN : BP stable Hyponatremia : resolved Appreciate input from nephrology, possible culprit could be ibuprofen Profen/NSAID which patient received for pericarditis HLD continue statin Fasting lipid panel ( LDL 45( at goal ) HDL 56, Chol 127, trig 132) 10/25 A1C 5.6 10/25 DVT PPX: SCD/TEDS Disposition:Discharge to home when medically stable Follow up: PCP [facility] upon discharge along with cardiology follow up Full code plan of care d/w family over phone , all questions answered , family comfortable and agreeable with current treatment plan Admission and Anticipated Discharge Date Admission Date: November 05, 2020 Subjective follow up visit for pericardial effusion /s/p pericardiocentesis /afib rvr feels fine no complain of sob , no cough no fever or chills remains in sinus rhythm Review of Systems Review of Systems: All systems reviewed & are unremarkable except as noted in HPI & below Physical Exam Constitutional: WD/WN, vitals as above Eyes: PERRL, conjunctivae normal, anicteric sclerae ENMT: external ear and nose normal, oropharynx normal Neck: trachea midline, no thyromegaly Respiratory: normal respiratory effort, lungs clear to auscultation Cardiovascular: RRR, no murmur, no edema Gastrointestinal (Abdomen): normal bowel sounds, soft, nontender, no hepatosplenomegaly Musculoskeletal: no cyanosis or clubbing, extremities motor strength 5/5 Skin: no rashes, warm and dry Neurologic: PERRL, EOMI, accommodation nl, no face palsy, no dysarthria Psychiatric: A+Ox3, euthymic affect Results & Data Results & Data ([facility]) Vital Signs (Past 12 Hours) Vital Signs Temp Pulse Pulse Resp BP Pulse Ox 11/09/20 15:29 37.1 C 93 H 20 128/83 97 11/09/20 15:00 92 H 11/09/20 10:54 37.3 C 94 H 20 137/85 97 (1) CAD (coronary artery disease) Associated angina: with unstable angina Coronary Disease-Associated Artery/Lesion type: unspecified vessel or lesion type [place] vs. transplanted heart: [place] heart Qualified Code(s): I25.110 - Atherosclerotic heart disease of [place] coronary artery with unstable angina pectoris
[2020-11-10 08:32] LABS: BUN Creatinine Ratio 20.1 (10-20); Calcium 8.5 mg/dl (8.5-10.1); Creatinine Clr Calc Pharmacy 113.7 ml/min; Est GFR (African American) 116.4; Est GFR (Non-African American) 100.4; Potassium 4.2 mmol/L (3.5-5.1)
[2020-11-10] MEDS: COLCHICINE 0.6 MG TAB PO SCH (08:59)
[2020-11-10] MEDS: predniSONE 20 MG TAB PO SCH (08:59)
[2020-11-10] MEDS: POTASSIUM CHLORIDE CRTAB 20 MEQ TABCR PO SCH (08:59)
[2020-11-10] MEDS: AMIODARONE 200 MG TAB PO SCH ×2 (09:01→20:52)
[2020-11-10] MEDS: METOPROLOL SUCC 50MG EXT REL TAB PO SCH ×2 (09:02→20:53)
[2020-11-10] MEDS: PANTOprazole 40 MG TAB PO SCH ×2 (09:59→20:53)
--- NOTE | 2020-11-10 12:18 | Communication Note ---
Date of Service: November 10, 2020 Blood culture 11/05/20: one bottle -Corynebacterium -skin omero -likely contamination during lab draw repeat blood culture 11/08/20 : no growth , Vancomycin dc repeat limited ECHO : no change from prior ECHO done post pericardiocentesis minimum residual pericardial effusion , no evidence of tamponade EF 60 % ( normal ) will watch pt over night on tele , if no cardiac arrhythmia overnight vitals stable , no clinical symptoms , plan to discharge home AM with PO Prednisone Violet Ramirez MD
--- NOTE | 2020-11-10 13:09 | Cardiology Progress Note ---
Date of Service November 10, 2020 Assessment & Plan (1) Pericardial effusion with cardiac tamponade: 74-year-old male recently hospitalized with acute pericarditis on 10/25/2020 treated appropriate with colchicine and ibuprofen presented 11/05/2020 with clinical decline increasing diaphoresis malaise and possible episode of nonresponsiveness . Echocardiogram demonstrated large pericardial effusion is a substantial change from prior study.. There was physiologic findings consistent with early tamponade on echocardiography Plan: Repeat echo shows stable small circumferential pericardial effusion Has remained in normal sinus rhythm Now tolerating medications without recurrences of dizziness Blood cultures found to be likely contaminant Continue colchicine for pericardial effusion along with prednisone as recommended by rheumatology colleagues, ibuprofen discontinued Continue current doses of amiodarone, aspirin, Crestor and metoprolol. Okay to discharge home from a cardiac standpoint. Will need cardiac follow-up in 1 to 2 weeks. (2) Atrial fibrillation with rapid ventricular response: (3) Positive blood culture: Admission and Anticipated Discharge Date Admission Date: November 05, 2020 Subjective Patient seen and examined, chart reviewed. States that he feels great today. Dizziness with ambulation has resolved and overall feels well. Telemetry reviewed: Normal sinus rhythm without recurrence of atrial fibrillation. Review of Systems Review of Systems: All systems reviewed & are unremarkable except as noted in HPI & below Physical Exam Physical Exam: General: Awake, alert and oriented x 3. No acute distress. HEENT: Normocephalic, atraumatic. Pupils equal, round and reactive to light and accommodation. Extraocular muscles are intact. Anicteric sclera. Moist mucous membranes. Neck: No JVD. No bruit. Cardiovascular: Regular. Positive S-4. Normal S-1 and S-2. No S-3. No murmurs or rubs. Pulmonary: Clear to auscultation B/L. No rales, rhonchi or wheezing Abdomen: Bowel sounds x 4, soft. No rebound, guarding or tenderness. No organomegaly. Extremities: No clubbing, cyanosis or edema. +2 pedal pulses bilaterally. Skin: Warm and dry. Results & Data ([facility]) Vital Signs (Past 12 Hours) Vital Signs Temp Pulse Pulse Resp BP BP Pulse Ox 11/10/20 12:02 37.0 C 95 H 18 126/79 99 11/10/20 09:00 89 150/75 H 11/10/20 08:12 36.7 C 93 H 18 96 11/10/20 06:57 100 H 11/10/20 03:54 36.7 C 86 16 137/81 97
[2020-11-10] MEDS: ROSUVASTATIN CALCIUM 10 MG TAB PO SCH (20:53)
[2020-11-10] MEDS: ASPIRIN 81 MG ECTAB PO SCH (20:54)
--- NOTE | 2020-11-10 21:45 | Communication Note ---
Date of Service: November 10, 2020 pt remains in normal sinus rhythm with rate controlled on amiodarone, Toprol XL 100 mg BID limited echo today : normal EF , minimum pericardial effusion with organized clot , no change noted from post pericardiocentesis images pt will be continued with Po Prednisone -40 mg Daily for 7 days /30 mg daily for 7 days /20 mg daily till seen by Rheumatology low dose colchicine plan for dc home tomorrow AM with above regimen Cardiology follow up at [facility] in a 1-2 week plan of care d/w with over phone , all questions answered Violet Ramirez MD
[2020-11-11] MEDS: predniSONE 20 MG TAB PO SCH (07:45)
[2020-11-11] MEDS: POTASSIUM CHLORIDE CRTAB 20 MEQ TABCR PO SCH (07:45)
[2020-11-11] MEDS: METOPROLOL SUCC 50MG EXT REL TAB PO SCH (07:45)
[2020-11-11] MEDS: PANTOprazole 40 MG TAB PO SCH (07:45)
[2020-11-11] MEDS: COLCHICINE 0.6 MG TAB PO SCH (07:46)
[2020-11-11] MEDS: AMIODARONE 200 MG TAB PO SCH (07:46)
--- NOTE | 2020-11-11 08:54 | Discharge Summary ---
Date of Service November 11, 2020 Admission HPI Per Admitting Provider This is a 74-year-old male who has significant past medical history of CAD, HTN, HLD and GERD who presents to ED secondary to ill feeling and worsening cardiac symptoms since discharge x3 to 4 days. Of significance patient hospitalized 10/25-10/26 secondary to acute onset chest pain. He was diagnosed with acute pericarditis and treated appropriately with colchicine and ibuprofen. Upon discharge he admits to being compliant with colchicine, but felt ibuprofen improved symptoms. He continued to feel malaise, fatigue, shortness of breath with exertion, orthopnea and chest pain with exertion. Per history patient was found by this morning and found to be unarousable and contacted cardiology clinic. He was then referred to ER. In ED initially he was tachycardic and hypotensive which responded to IV fluid resuscitation. Initial echocardiogram at bedside demonstrated large pericardial effusion with evidence of tamponade. Cardiology was immediately consulted and he is being referred for urgent per icardiocentesis. He denies any recent fever, chills, sweats, lightheadedness, dizziness, hemoptysis, URI symptoms, nausea, vomiting, abdominal pain, dysuria, increased urgency or frequency with urination, diarrhea, melena. He does admit to occasional dry cough but associates this with GERD. Appetite overall poor. Of significance patient is from [facility]. He has resided in [facility] since 2000, but goes back to [facility] every summer for that, "." May 18, 2019 he suffered heart attack requiring 2 stent placements. He is currently on a regiment of aspirin, lisinopril, metoprolol and rosuvastatin. Principal Diagnosis PERICARDIAL EFFUSION S/P PERICARDIOCENTESIS ATRIAL FIBRILLATION Discharge Exam Constitutional WD/WN, vitals as above Eyes PERRL, conjunctivae normal, anicteric sclerae ENMT external ear and nose normal, oropharynx normal Neck trachea midline, no thyromegaly Respiratory normal respiratory effort, lungs clear to auscultation Cardiovascular RRR, no murmur, no edema Rate/Rhythm: + irregularly irregular Extremities: no edema Gastrointestinal (Abdomen) normal bowel sounds, soft, nontender, no hepatosplenomegaly Musculoskeletal no cyanosis or clubbing, extremities motor strength 5/5 Skin no rashes, warm and dry Neurologic PERRL, EOMI, accommodation nl, no face palsy, no dysarthria Psychiatric A+Ox3, euthymic affect Discharge Data Allergies Allergy/AdvReac Type Severity Reaction Status Date / Time No Known Allergies Allergy Unverified 11/05/20 09:33 Consultations 11/05/20 10:53 ED Decision to Admit Stat 11/05/20 10:55 ED Decision to Admit Stat 11/05/20 11:38 Consult Gore Stitcher Routine 11/05/20 14:09 Consult Case Management - Discharge Planning Routine 11/05/20 22:40 Consult Nephrology Routine Procedures Performed Operation Date: 11/05/20 12:00 Actual Procedures p Pericardiocentesis Initial - Cortez Bains MD Ordered Studies 11/05/20 11:58 CL Cath Imgs for PACS use only Stat Hospital Course (1) Pericardial effusion with cardiac tamponade: This is a 74-year-old male who has significant past medical history of CAD, HTN, HLD and GERD who presents to ED secondary to ill feeling and worsening cardiac symptoms since discharge x3 to 4 days. Patient hospitalized 10/25 and 10/26 secondary to acute pericarditis treated with colchicine and ibuprofen. Readmission secondary to worsening of shortness of breath/potential/tachycardia :-echo showed large pericardial effusion with substantial change from prior study, with evidence of tamponade Status post urgent pericardiocentesis with removal of 800 cc of bloody pericardial effusion. pt has been doing well since , no orthopnea, no SOB or LAY Ibuprofen Dc'ed as pt is started on PO Prednisone for possible inflammatory ( RA or Lupus ) pericarditis Colchicine dose reduced to once daily Limited ECHO 11/10 : no recurrence /reaccumulation of pericardial effusion Rapid A. fib RVR, ( new onset during this admission ) resolve, in sinus with rate controlled -resting /average HR 70-80's was started with IV Cardizem drip, converted to sinus with Iv cardizem gtt Appreciate input from cardiology patient started with p.o. 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 positive, CCP IG G negative ordered for Double stranded DNA ab/CCP/anti kiran ab -results pending , will be followed with Rheumatology Dr Monteiro in a week at [facility] Dr Alvarado updated regarding pt being discharged from home pt is discharged with slow PO prednisone taper : 40 mg daily for 1 week/30 mg daily for 1 week/20 mg daily till seen by Rheumatology (2) CAD (coronary artery disease): Leukocytosis/Elevated CRP resolved cultures obtained from pericardiocentesis shows no growth 1 set of blood culture shows gram-negative cocci-corenybacterium possible contamination, repeat blood cultures no grwoth dc IV vancomycin if repeat culture no growth CAD hx of stent x 2 04/2019 in [place] chest heaviness due to pericarditis no angina symptoms now HTN : BP stable Hyponatremia : resolved Appreciate input from nephrology, possible culprit could be ibuprofen Profen/NSAID which patient received for pericarditis HLD continue statin Fasting lipid panel ( LDL 45( at goal ) HDL 56, Chol 127, trig 132) 10/25 A1C 5.6 10/25 DVT PPX: SCD/TEDS Disposition:Discharged pt to home today Follow up: PCP [facility] upon discharge along with cardiology follow up Full code plan of care d/w family over phone , all questions answered , family comfortable and agreeable with current treatment plan Total Time Total Time Spent Total Time Spent (In Minutes): 40 mins Total Time Includes: Examination of the Patient, Discharge Planning, Medication Reconciliation and Communication With Other Providers Discharge Plan Discharge Items Patient Disposition: Home - Self-Care Reason For Visit: CARDIAC TAMPONADE Discharge Diagnosis: PERICARDIAL EFFUSION S/P PERICARDIOCENTESIS ATRIAL FIBRILLATION Activity: Resume your previous activity Lifting: None Bathing: No limitations Bathing Comment: Can take shower today Exercise/Sports: Gradually increase as tolerated Driving/Machine Use: No limitations Non-emergency contact: Primary Care Provider Call non-emergency contact if: you have any medication questions Follow-up/Referrals: [facility],Medicine [Primary Care Provider] - (Hospital follow up in a week ) Klever Blackmon MD [Physician] - (CARDIOLOGY FOLLOW UP IN A WEEK ) Adolph Alan MD [Physician] - 11/14/20 (Rhumatology follow up with DR MONTEIRO AT [facility] office will call you with appointment time ) Diet: Heart Healthy Addtl Attending Provider Instructions: new medications : 1.Amiodarone 400 mg 1 tablet twice daily -for heart rate control 2. Metoprolol succinate 100 mg twice daily -for heart rate control 3. Prednisone 40 mg daily -take as directed ( please take it after ,meal / food to prevent severe acid reflux ) Addtl We[employer] Straight[employer] Provider Instructions: Your Morning Meds are: 1. Amiodarone 400 mg 1 tablet daily 2.Metoprolol Succinate 100 mg 1 tablet daily 3. Prednisone 40 mg daily then reduce dose to 30 mg daily as instructed ( take after breakfast ) 4.Lisinopril 10 mg daily 5. Colchicine 0.6 mg 1 tablet daily ( take after breakfast ) 6.Protonix 40 mg 1 tablet daily ( take before breakfast /empt stomach ) Your evening Meds are : 1. Amiodarone 400 mg 1 tab in evening -after dinner 2. Metoprolol Succinate 100 mg 1 tablet -after dinner 3.Aspirin 81 mg 1 tablet daily -after dinner 4.Crestor 10 mg 1 tablet daily -after dinner -for high cholesterol Pending Studies at Discharge: No Stand-Alone Forms: My [facility], Smoking Cessation Medications and DC Order Prescriptions: New amiodarone 200 mg Tablet 400 mg PO BID 30 Days Qty: 120 RF: 2 metoprolol succinate 50 mg Tablet Extended Release 24 Hr 100 mg PO BID 30 Days Qty: 120 RF: 3 prednisone 20 mg Tablet 40 mg PO DAILY Qty: 32 RF: 3 Continued aspirin 81 mg Tablet,Delayed Release (Dr/Ec) 81 mg PO HS 30 Days Qty: 30 RF: 0 lisinopril 10 mg Tablet 10 mg PO QAM 30 Days Qty: 30 RF: 0 rosuvastatin [Crestor] 10 mg Tablet 10 mg PO HS 30 Days Qty: 30 RF: 0 pantoprazole 40 mg Tablet,Delayed Release (Dr/Ec) 40 mg PO QAM 30 Days Qty: 30 RF: 0 Changed colchicine [Colcrys] 0.6 mg Tablet 0.6 mg PO DAILY 30 Days Qty: 30 RF: 3 Discontinued amlodipine [Norvasc] 5 mg Tablet 5 mg PO QAM 30 Days Qty: 30 RF: 0 metoprolol tartrate 25 mg Tablet 25 mg PO BID 30 Days Qty: 60 RF: 0 Discharge Orders: Discharge Order (Routine); Ordered 11/11/20 Ordered By: Violet Ramirez Admission Data Admit Date/Time: 11/05/20 11:38 Attending Provider: Violet Ramirez Admit Provider: Debbie Cho Primary Care Provider: [facility] Other Providers: Debbie Cho ; Klever Blackmon ; Violet Ramirez ; Adolph Waller ; Doreen David
--- NOTE | 2020-11-11 11:20 | Communication Note ---
Date of Service: November 11, 2020 -Patient discharged earlier today, Patient does not have a medical insurance, follows with [facility] in [place], Contacted [facility] - their pharmacy does not stock metoprolol succinate. Discussed with cardiology, Toprol succinate/Toprol-XL listed in [employer] $4 prescription plan as 50 mg tablet Sent prescription to [facility] for Toprol XL 100 mg twice daily/2 of 50 mg tablet twice daily. Patient already scheduled to have rheumatology follow-up on November [address] [facility] clinic with Dr. Monteiro. Hospital follow-up with family physician at [facility] clinic scheduled for November 14. [facility] will arrange cardiology follow-up at [facility]. Discharge instructions, discharge summary faxed to [facility] clinic for continuation of care. Violet Ramirez MD
[2020-11-11 14:41] LABS: Sm Antibody <1.0 NEG AI (<1.0 NEG)
[2020-11-11 20:11] LABS: Pericardial Fld,Total Protein 6.1 g/dL
[2020-11-14 19:57] LABS: Anti-DNASE B Ab <95 U/mL (<301); Complement C3 147 mg/dL (82-185); Complement Total(CH50) >60 U/mL (31-60); RNP Antibody <1.0 NEG AI (<1.0 NEG)
== END 2020-11-11 10:15 | disposition home or self-care (01) | DRG 315 ==
LOC: ED 09:08 → SUATTDRO 11:38 → CC 12:00 → 1E 12:01 → 2W 11-07 11:31 → 2S 11-07 19:32 → 2N 11-10 18:25